=== PATIENT | male | born 1945 | race Caucasian/White ===

== ENCOUNTER 2017-08-03 08:28 | Emergency (ER) | payer MEDICARE, OTHER ==
[~2017-08-03] VITALS: Ht 177.8 cm; Wt 59.0 kg
[~2017-08-03 08:28] MED LIST: (None)20 M1 PO; ACET325 PO; ALBU90OI INH; ALBU90OI6 INH; CLON.5 PO; CLONAZEPAM PO; GENVOYA TABLET1 EACH PO; GUAI600T33 PO; HYDACE10B PO; HYDROCODONE PO; MONT10T PO; NICO14TP TOP; PROC5 PO; Prednisone20 MG PO; RAYATAZ PO; RITO100 PO; Truvada Tablet1 EACH PO; Zithromax250 MG PO
== END 2017-08-03 09:20 | disposition home or self-care (01) ==
LOC: ER 08:28
DX: L27.0 Generalized skin eruption due to drugs and medicaments taken internally (principal); T36.3X5A Adverse effect of macrolides, initial encounter; J44.9 Chronic obstructive pulmonary disease, unspecified; F17.210 Nicotine dependence, cigarettes, uncomplicated; Z88.5 Allergy status to narcotic agent; Z79.52 Long term (current) use of systemic steroids; Z79.2 Long term (current) use of antibiotics; Z79.899 Other long term (current) drug therapy; Z79.891 Long term (current) use of opiate analgesic
CPT/HCPCS: 96374; 99283; J2930

== ENCOUNTER → 2018-02-21 | Outpatient (CLI) | payer MEDICARE ==
[2018-02-21 17:40] LABS: U Amphetamine Screen Not Detected; U Barbituate Screen Not Detected; U Benzodiazapine Screen Not Detected; U Buprenorphine Screen Not Detected; U Cannabinoids Screen Not Detected; U Cocaine Screen Not Detected; U Methadone Screen Not Detected; U Methamphetamine Screen Not Detected; U Opiates Screen DETECTED; U Oxycodone Screen Not Detected; U Phencyclidine Screen Not Detected; U Propoxyphene Screen Not Detected
== END | disposition home or self-care (01) ==
LOC: LAB 16:26 → LAB SHORT 16:26
PROVIDERS: Internal Medicine Hematology & Oncology
DX: Z51.81 Encounter for therapeutic drug level monitoring (principal); Z79.899 Other long term (current) drug therapy
CPT/HCPCS: G0480

== ENCOUNTER 2018-06-28 15:56 | Inpatient (IN) | payer MEDICARE ==
[~2018-06-28] VITALS: Ht 177.8 cm; Wt 54.9 kg
[2018-06-28] MEDS ORDERED: TIOT18 INH (16:19)
[2018-06-28 16:33] LABS: BASOPHILS ABSOLUTE AUTO 0.04 K/mm3 (0.00-0.23); BASOPHILS PERCENT AUTO 0 % (0-2); EOSINOPHILS ABSOLUTE AUTO 0.02 K/mm3 (0.00-0.68); EOSINOPHILS PERCENT AUTO 0 % (0-6); Hematocrit 53.5 % (37.0-53.0); Hemoglobin 17.1 g/dL (13.5-17.5); IMMATURE GRAN ABSOLUTE AUTO 0.06 K/mm3 (0.00-0.10); IMMATURE GRAN PERCENT AUTO 0 % (0-1); LYMPHOCYTES ABSOLUTE AUTO 1.37 K/mm3 (0.84-5.20); LYMPHOCYTES PERCENT AUTO 9 % (21-46); MONOCYTES ABSOLUTE AUTO 1.46 K/mm3 (0.16-1.47); MONOCYTES PERCENT AUTO 9 % (4-13); Mean Corpuscular HGB 32.6 pg (26.0-34.0); Mean Corpuscular Volume 102 fL (80-100); Mean Platelet Volume 9.5 fL (9.1-12.4); NEUTROPHILS ABSOLUTE AUTO 12.75 K/mm3 (1.96-9.15); NEUTROPHILS PERCENT AUTO 81 % (41-73); Platelet Count 176 K/mm3 (150-400); RDW Coefficient Variation 13.7 % (11.7-14.2); RDW Standard Deviation 52.3 fL (35.1-46.3); Red Blood Cell Count 5.25 M/mm3 (4.30-5.90)
[2018-06-28 16:53] LABS: Alanine Aminotransfer (ALT/SGP 18 U/L (12-78); Albumin, Blood 3.2 g/dL (3.4-5.0); Albumin/Globulin Ratio 0.7 (0.8-1.8); Alk Phos 84 U/L (50-136); Anion Gap 5 mmol/L (6-16); Aspartate Aminotrans (AST/SGOT 18 U/L (12-37); Bilirubin, Total 0.4 mg/dL (0.1-1.0); Blood Urea Nitrogen 17 mg/dL (8-24); Bun/Creatinine Ratio 17.3 (12.0-20.0); CO2, Blood 27 mmol/L (21-32); Calcium, Blood 9.3 mg/dL (8.5-10.1); Chloride, Blood 102 mmol/L (98-108); Creatinine, Blood 0.98 mg/dL (0.60-1.20); Globulin, Blood 4.8 g/dL (2.2-4.0); Glomerular Filtration Rate >60 (60-); Glucose, Blood 105 mg/dL (70-99); Potassium, Blood 3.9 mmol/L (3.5-5.5); Sodium, Blood 134 mmol/L (136-145); Troponin I <0.015 ng/mL (0.000-0.040)
--- NOTE | 2018-06-29 03:50 | NUR ---
Shift summary: Pt has slept most of shift. Pt had an anxiety attack earlier in the shift. He was having a hard time getting his air. Respiratory called and pt was given an additional breathing treatment. His O2 was uped to three liters and his O2 sat was 94. He was also given a xanax after getting an order for it.
[2018-06-29 04:56] LABS: BASOPHILS ABSOLUTE AUTO 0.02 K/mm3 (0.00-0.23); BASOPHILS PERCENT AUTO 0 % (0-2); EOSINOPHILS ABSOLUTE AUTO 0.01 K/mm3 (0.00-0.68); EOSINOPHILS PERCENT AUTO 0 % (0-6); Hematocrit 47.3 % (37.0-53.0); Hemoglobin 14.7 g/dL (13.5-17.5); IMMATURE GRAN ABSOLUTE AUTO 0.08 K/mm3 (0.00-0.10); IMMATURE GRAN PERCENT AUTO 1 % (0-1); LYMPHOCYTES ABSOLUTE AUTO 1.22 K/mm3 (0.84-5.20); LYMPHOCYTES PERCENT AUTO 9 % (21-46); MONOCYTES ABSOLUTE AUTO 1.45 K/mm3 (0.16-1.47); MONOCYTES PERCENT AUTO 10 % (4-13); Mean Corpuscular HGB 31.7 pg (26.0-34.0); Mean Corpuscular HGB Conc 31.1 g/dL (31.5-36.5); Mean Corpuscular Volume 102 fL (80-100); Mean Platelet Volume 9.4 fL (9.1-12.4); NEUTROPHILS ABSOLUTE AUTO 11.34 K/mm3 (1.96-9.15); NEUTROPHILS PERCENT AUTO 80 % (41-73); Platelet Count 159 K/mm3 (150-400); RDW Coefficient Variation 13.9 % (11.7-14.2); RDW Standard Deviation 52.6 fL (35.1-46.3); Red Blood Cell Count 4.64 M/mm3 (4.30-5.90); White Blood Cell Count 14.12 K/mm3 (4.00-11.30)
[2018-06-29 05:12] LABS: Anion Gap 4 mmol/L (6-16); Blood Urea Nitrogen 17 mg/dL (8-24); Bun/Creatinine Ratio 20.2 (12.0-20.0); CO2, Blood 28 mmol/L (21-32); Calcium, Blood 8.4 mg/dL (8.5-10.1); Chloride, Blood 107 mmol/L (98-108); Creatinine, Blood 0.84 mg/dL (0.60-1.20); Glomerular Filtration Rate >60 (60-); Glucose, Blood 96 mg/dL (70-99); Potassium, Blood 3.9 mmol/L (3.5-5.5); Sodium, Blood 139 mmol/L (136-145)
--- NOTE | 2018-06-29 10:45 | NUR ---
HE JUST FINISHED WORKING WITH PT. NO BALANCE PROBLEMS. DENIED INCREASED SOB. PULSE DID INCREASE BY 10 BTS/MIN THOUGH. WILL START HIS HOME MED. PHARMACIST IS VERIFYING IT FIRST. WAS HERE AND PUT IN ORDERS FOR PRN ANXIETY. SHITAL WOKE UP THIS MORNING WITH A PANIC ATTACK. TEDS ON BILATERALLY.
--- NOTE | 2018-06-29 18:44 | NUR ---
HE HAS HAD 1 OR 2 VISITORS AT A TIME COME OFF AND ON TODAY. HE EATS 100%. HE AMBULATED WITH PT. HE IS SOB AT REST. HE HAS NOT NEEDED HIS ANTIANXIETY MEDICATION TODAY EVEN THOUGH HIS DAY STARTED OUT WITH A PANIC ATTACK. HE SPENT MOST ALL DAY IN THE BED. HE VOIDS WELL PER URINAL. MAYBE TOMORROW HE WILL FEEL WELL ENOUGH TO GET UP TO THE CHAIR FOR MEALS AND AMBULATE MORE. TEDS ON BILATERALLY.NO FEVERS.
--- NOTE | 2018-06-30 05:54 | NUR ---
SHIFT SUMMARY PATIENT IS ALERT AND ORIENTED. USES CALL LIGHT APPROPRIATELY. REQUESTED ATIVAN BEFORE BED. PATIENT SLEPT WELL THROUGHOUT THE NIGHT. USES URINAL. NO COMPLAINTS OF PAIN OR SOB THROUGHOUT THE NIGHT. VITALS STABLE.
--- NOTE | 2018-06-30 19:26 | NUR ---
SHIFT SUMMARY PT AXO, PLEASANT AND COOPERATIVE WITH CARE. ONE EPISODE OF ANXIETY THIS MORNING, PT MEDICATED PER EMAR. VSS. NEW IV PLACED THIS SHIFT, PATENT AND INFUSING PER EMAR AT THIS TIME. NO OTHER CHANGES. BED IN LOW POSITION, CALL LIGHT WITHIN REACH. PT DENIES PAIN, AND NV, STATES THAT HIS SOB IS IMPROVING.
--- NOTE | 2018-07-01 03:38 | NUR ---
SHIFT SUMMARY PATIENT HAD NO ACUTE CHANGES OBSERVED DURING THE SHIFT. AXOX 3 AND INDEPENDENT. DENIES PAIN, SOB, AND N/V. PIV REMAINS INTACT. IV ABX INFUSED. ON 3L O2 NC. FAMILY PRESENT AT SHIFT CHANGE. WATCHED TV WITH FAMILY. VSS/AFEBRILE. RT IN FOR BREATHING TX. COOPERATIVE WITH CARE. CALL LIGHT IN REACH. BED IN LOWEST POSITION. WILL CONTINUE TO MONITOR UNTIL DAY SHIFT NURSE ASSUMES CARE.
[2018-07-01 11:00] LABS: BASOPHILS ABSOLUTE AUTO 0.01 K/mm3 (0.00-0.23); BASOPHILS PERCENT AUTO 0 % (0-2); EOSINOPHILS ABSOLUTE AUTO 0.06 K/mm3 (0.00-0.68); EOSINOPHILS PERCENT AUTO 1 % (0-6); Hematocrit 48.5 % (37.0-53.0); Hemoglobin 15.1 g/dL (13.5-17.5); IMMATURE GRAN ABSOLUTE AUTO 0.03 K/mm3 (0.00-0.10); IMMATURE GRAN PERCENT AUTO 0 % (0-1); LYMPHOCYTES ABSOLUTE AUTO 1.18 K/mm3 (0.84-5.20); LYMPHOCYTES PERCENT AUTO 13 % (21-46); MONOCYTES ABSOLUTE AUTO 0.95 K/mm3 (0.16-1.47); MONOCYTES PERCENT AUTO 11 % (4-13); Mean Corpuscular HGB Conc 31.1 g/dL (31.5-36.5); Mean Corpuscular Volume 103 fL (80-100); Mean Platelet Volume 9.2 fL (9.1-12.4); NEUTROPHILS ABSOLUTE AUTO 6.69 K/mm3 (1.96-9.15); NEUTROPHILS PERCENT AUTO 75 % (41-73); Platelet Count 178 K/mm3 (150-400); RDW Coefficient Variation 13.8 % (11.7-14.2); Red Blood Cell Count 4.72 M/mm3 (4.30-5.90); White Blood Cell Count 8.92 K/mm3 (4.00-11.30)
[2018-07-01 11:18] LABS: Anion Gap 3 mmol/L (6-16); Blood Urea Nitrogen 18 mg/dL (8-24); Bun/Creatinine Ratio 20.4 (12.0-20.0); CO2, Blood 30 mmol/L (21-32); Calcium, Blood 9.2 mg/dL (8.5-10.1); Chloride, Blood 105 mmol/L (98-108); Creatinine, Blood 0.88 mg/dL (0.60-1.20); Glomerular Filtration Rate >60 (60-); Glucose, Blood 109 mg/dL (70-99); Potassium, Blood 4.2 mmol/L (3.5-5.5); Sodium, Blood 138 mmol/L (136-145)
--- NOTE | 2018-07-01 18:34 | NUR ---
SHIFT SUMMARY SHITAL WAS SLEEPY THIS SHIFT, DENIED PAIN. ON 2L OXYGEN, INDEPENDENT IN ROOM. GOOD APPETITE THIS SHIFT. REQUESTED ANXIETY MEDICATION X1 THIS SHIFT. CALL LIGHT IN REACH. [facility]
--- NOTE | 2018-07-02 03:46 | NUR ---
SHIFT SUMMARY PATIENT HAD NO ACUTE CHANGES OBSERVED DURING THE SHIFT. AXO X4 AND INDEPENDENT IN THE ROOM. TAKES MEDS WHOLE W/WATER. PIV REMAINS INTACT. IV ABXS INFUSED. VSS/FEBRILE. DENIES PAIN, SOB, AND N/V. NO ANXIETY REPORTED. ON 2L O2 NC. FAMILY PRESENT FOR A FEW HOURS. RT BREATHING TX. COOPERATIVE WITH CARE. CALL LIGHT IN REACH. BED IN LOWEST POSITION. WILL CONTINUE TO MONITOR UNTIL DAY SHIFT NURSE ASSUMES CARE.
--- NOTE | 2018-07-02 12:30 | NUR ---
LOWERED O2 TO 1 L PER NC. PT TOLERATING WELL O2 SATS MAINTAINED @94%.
--- NOTE | 2018-07-02 18:11 | NUR ---
SHIFT SUMMARY PATIENT REMAINS AX0. HE IS INDEPENDENT IN HIS ROOM--SPENT MOST OF THE DAY IN BED WATCHING TELEVISION. HE IS A PLEASENT MAN WHO HAS NEEDED VERY LITTLE THROUGHOUT THE DAY. HE IS INTERESTED IN KNOWING WHEN HE MAY GET TO RETURN.
--- NOTE | 2018-07-03 03:16 | NUR ---
SHIFT SUMMARY PATIENT HAD NO ACUTE CHANGES OBSERVED THIS SHIFT. AXOX 4 AND INDEPENDENT IN THE ROOM. DENIES PAIN, SOB, AND N/V. VSS/AFEBRILE. TAKES MEDS WHOLE WITH WATER. PIV REMAINS INTACT. IV ABXS INFUSED. ON 1L O2 NC. FAMILY PRESENT DURING SHIFT. RT IN FOR BREATHING TX. COOPERATIVE WITH CARE. CALL LIGHT IN REACH. BED IN LOWEST POSITION. WILL CONTINUE TO MONITOR UNTIL DAY SHIFT NURSE ASSUMES CARE.
[2018-07-03 10:27] LABS: Creatinine, Blood 0.83 mg/dL (0.60-1.20)
[2018-07-03 10:32] LABS: Vancomycin, Trough 20.8 ug/mL (5.0-10.0)
[2018-07-03] MEDS ORDERED: CLIN300 PO (16:26)
--- NOTE | 2018-07-03 16:53 | NUR ---
DISCHARGE DISCHARGE INSTRUCTIONS, MEDICATION LIST AND FOLLOW UP APPOINTMENT WITH DR BEAL ON 07/05/18, AT 1320 REVIEWED WITH PT. QUESTION/CONCERNS ANSWERED. SCRIP FOR PO THELMAOCIN FAXED TO [facility] PER PT PREFERENCE. PT WAITING FOR HIS RIDE HOME AT THIS TIME.
== END 2018-07-03 17:32 | disposition home or self-care (01) | DRG 177 ==
LOC: ER 15:56 → MEDS 18:49 → ENPENDDIS 07-03 17:21 → MEDS 07-03 17:32
PROVIDERS: Emergency Medicine; Pharmacist Pharmacotherapy; ADMIT Hospitalist
DX: J15.20 Pneumonia due to staphylococcus, unspecified (principal); J96.91 Respiratory failure, unspecified with hypoxia; J44.1 Chronic obstructive pulmonary disease with (acute) exacerbation; Z21 Asymptomatic human immunodeficiency virus [HIV] infection status; F41.9 Anxiety disorder, unspecified
CPT/HCPCS: 36415; 71046; 80048; 80053; 80202; 82565; 84484; 85025; 87070; 87077; 87186; 87205; 93005; 93010; 94640; 94760; 96361; 96365; 96375; 97110; 97161; 99285-25; J0696; J1650; J1885; J1956; J3370; J7030; J7050

== ENCOUNTER 2019-01-20 22:20 | Emergency (ER) | payer MEDICARE ==
[~2019-01-20] VITALS: Ht 177.8 cm; Wt 58.1 kg
[~2019-01-20 22:20] MED LIST changes: +CLIN300 PO; -HYDACE10B PO; +NORCO 10-325 T1 EACH PO; +TIOT18 INH
[2019-01-20 23:36] LABS: BASOPHILS ABSOLUTE AUTO 0.03 K/mm3 (0.00-0.23); BASOPHILS PERCENT AUTO 0 % (0-2); EOSINOPHILS ABSOLUTE AUTO 0.04 K/mm3 (0.00-0.68); EOSINOPHILS PERCENT AUTO 0 % (0-6); Hematocrit 50.7 % (37.0-53.0); Hemoglobin 15.2 g/dL (13.5-17.5); IMMATURE GRAN ABSOLUTE AUTO 0.02 K/mm3 (0.00-0.10); IMMATURE GRAN PERCENT AUTO 0 % (0-1); LYMPHOCYTES ABSOLUTE AUTO 1.26 K/mm3 (0.84-5.20); LYMPHOCYTES PERCENT AUTO 13 % (21-46); MONOCYTES ABSOLUTE AUTO 1.01 K/mm3 (0.16-1.47); MONOCYTES PERCENT AUTO 10 % (4-13); Mean Corpuscular HGB 32.5 pg (26.0-34.0); Mean Corpuscular Volume 108 fL (80-100); NEUTROPHILS PERCENT AUTO 77 % (41-73); Platelet Count 225 K/mm3 (150-400); RDW Coefficient Variation 14.1 % (11.7-14.2); RDW Standard Deviation 57.5 fL (35.1-46.3); Red Blood Cell Count 4.68 M/mm3 (4.30-5.90); White Blood Cell Count 10.06 K/mm3 (4.00-11.30)
[2019-01-21 00:25] LABS: Alanine Aminotransfer (ALT/SGP 19 U/L (12-78); Albumin, Blood 2.8 g/dL (3.4-5.0); Albumin/Globulin Ratio 0.6 (0.8-1.8); Alk Phos 92 U/L (50-136); Anion Gap 2 mmol/L (6-16); Aspartate Aminotrans (AST/SGOT 7 U/L (12-37); Bilirubin, Total 0.2 mg/dL (0.1-1.0); Blood Urea Nitrogen 17 mg/dL (8-24); Bun/Creatinine Ratio 16.8 (12.0-20.0); CO2, Blood 38 mmol/L (21-32); Calcium, Blood 9.7 mg/dL (8.5-10.1); Chloride, Blood 101 mmol/L (98-108); Creatinine, Blood 1.01 mg/dL (0.60-1.20); Globulin, Blood 4.9 g/dL (2.2-4.0); Glomerular Filtration Rate >60 (60-); Glucose, Blood 136 mg/dL (70-99); Potassium, Blood 4.1 mmol/L (3.5-5.5); Sodium, Blood 141 mmol/L (136-145); Total Protein, Blood 7.7 g/dL (6.4-8.2); Troponin I <0.015 ng/mL (0.000-0.040)
[2019-01-21] MEDS ORDERED: Vibramycin100 MG PO (01:04)
== END 2019-01-21 01:27 | disposition home or self-care (01) ==
LOC: ER 22:20
PROVIDERS: Emergency Medicine
DX: J44.1 Chronic obstructive pulmonary disease with (acute) exacerbation (principal); F17.200 Nicotine dependence, unspecified, uncomplicated; Z88.5 Allergy status to narcotic agent; Z88.1 Allergy status to other antibiotic agents
CPT/HCPCS: 36415; 71046; 80053; 83880; 84484; 85025; 93005; 93010; 94640; 99284-25; J1100

== ENCOUNTER 2019-03-08 08:33 | Inpatient (IN) | payer MEDICARE ==
[~2019-03-08] VITALS: Ht 177.8 cm; Wt 45.1 kg
[~2019-03-08 08:33] MED LIST changes: +Vibramycin100 MG PO
[2019-03-08 09:14] LABS: BASOPHILS ABSOLUTE AUTO 0.03 K/mm3 (0.00-0.23); BASOPHILS PERCENT AUTO 0 % (0-2); EOSINOPHILS ABSOLUTE AUTO 0.01 K/mm3 (0.00-0.68); EOSINOPHILS PERCENT AUTO 0 % (0-6); Hemoglobin 17.3 g/dL (13.5-17.5); IMMATURE GRAN ABSOLUTE AUTO 0.03 K/mm3 (0.00-0.10); IMMATURE GRAN PERCENT AUTO 0 % (0-1); LYMPHOCYTES ABSOLUTE AUTO 1.07 K/mm3 (0.84-5.20); LYMPHOCYTES PERCENT AUTO 10 % (21-46); MONOCYTES ABSOLUTE AUTO 1.17 K/mm3 (0.16-1.47); MONOCYTES PERCENT AUTO 11 % (4-13); Mean Corpuscular HGB 31.9 pg (26.0-34.0); Mean Corpuscular Volume 106 fL (80-100); Mean Platelet Volume 10.3 fL (9.1-12.4); NEUTROPHILS ABSOLUTE AUTO 8.39 K/mm3 (1.96-9.15); NEUTROPHILS PERCENT AUTO 78 % (41-73); Platelet Count 230 K/mm3 (150-400); RDW Coefficient Variation 14.9 % (11.7-14.2); RDW Standard Deviation 59.3 fL (35.1-46.3); Red Blood Cell Count 5.42 M/mm3 (4.30-5.90)
[2019-03-08 09:17] LABS: Hematocrit 57.6 % (37.0-53.0)
[2019-03-08 09:37] LABS: Alanine Aminotransfer (ALT/SGP 41 U/L (12-78); Albumin/Globulin Ratio 0.6 (0.8-1.8); Alk Phos 93 U/L (50-136); Anion Gap 3 mmol/L (6-16); Aspartate Aminotrans (AST/SGOT 36 U/L (12-37); Bilirubin, Total 0.7 mg/dL (0.1-1.0); Blood Urea Nitrogen 32 mg/dL (8-24); CO2, Blood 33 mmol/L (21-32); Calcium, Blood 9.1 mg/dL (8.5-10.1); Chloride, Blood 107 mmol/L (98-108); Globulin, Blood 4.8 g/dL (2.2-4.0); Glomerular Filtration Rate >60 (60-); Glucose, Blood 122 mg/dL (70-99); Potassium, Blood 4.7 mmol/L (3.5-5.5); Sodium, Blood 143 mmol/L (136-145); Total Protein, Blood 7.8 g/dL (6.4-8.2)
[2019-03-08 09:39] LABS: Influenza A Negative (NEGATIVE); Influenza B Negative (NEGATIVE)
[2019-03-08 10:31] LABS: International Normalized Ratio 1.08; Prothrombin Time Results 11.5 Sec (9.7-11.5)
[2019-03-08 11:29] LABS: PCO2 Arterial 71.6 mmHg (35-45); PO2 Arterial 70.3 mmHg (80-100)
[2019-03-08] MEDS ORDERED: PROC5 PO (12:53)
--- NOTE | 2019-03-08 13:43 | NUR ---
ASSUMED PATIENT CARE.
[2019-03-08 15:30] LABS: U Amphetamine Screen Not Detected; U Barbituate Screen Not Detected; U Benzodiazapine Screen Not Detected; U Buprenorphine Screen Not Detected; U Cannabinoids Screen Not Detected; U Cocaine Screen Not Detected; U Methadone Screen Not Detected; U Methamphetamine Screen Not Detected; U Opiates Screen DETECTED; U Oxycodone Screen Not Detected; U Phencyclidine Screen Not Detected; U Propoxyphene Screen Not Detected
--- NOTE | 2019-03-08 17:44 | NUR ---
PT CURRENTLY ON 4L O2 SATTING MID 90S. TOLERATING WELL. CALL TO DR DIAS TO UPDATE HIM ABOUT PT'S STATUS AND LET HIM KNOW PT IS CURRENTLY TOLERATING NC BUT HAS NOT HAD REPEAT ABG DONE. STATES REPEAT NOT NEEDED UNLESS STATUS WORSENS. PT EATING DINNER AT THIS TIME. ORIENTEE AT BEDSIDE.
[2019-03-08 19:20] LABS: Adenovirus Not Detected (NOT DETECT); Bordetella pertussis Not Detected (NOT DETECT); Chlamydophila pneumoniae Not Detected (NOT DETECT); Coronavirus 229E Not Detected (NOT DETECT); Coronavirus HKU1 Not Detected (NOT DETECT); Coronavirus NL63 Not Detected (NOT DETECT); Coronavirus OC43 Not Detected (NOT DETECT); Human Metapneumovirus Not Detected (NOT DETECT); Human Rhinovirus/Enterovirus Not Detected (NOT DETECT); Influenza A Not Detected (NOT DETECT); Influenza A/2009-H1 Not Detected (NOT DETECT); Influenza A/H1 Not Detected (NOT DETECT); Influenza A/H3 Not Detected (NOT DETECT); Influenza B Not Detected (NOT DETECT); Mycoplasma pneumoniae Not Detected (NOT DETECT); Parainfluenza Virus 1 Not Detected (NOT DETECT); Parainfluenza Virus 2 Not Detected (NOT DETECT); Parainfluenza Virus 3 Not Detected (NOT DETECT); Parainfluenza Virus 4 Not Detected (NOT DETECT); Respiratory Syncytial Virus Not Detected (NOT DETECT)
--- NOTE | 2019-03-08 19:23 | NUR ---
PATIENT ARRIVED VIA ED WITH COPD EXACERBATION AND HYPERCAPNIA. ADMITTED TO PCU WITH BIPAP, TRANSITIONED TO 4L O2 NASAL CANULA AROUND 1700. PATIENT TOLERATED NC WELL AND MAINTAINED O2 95-96% OVER REMAINDER OF SHIFT. HX OF HIV, ADDITIONAL LABS ORDERED AND DRAWN, MONITOR RESULTS FOR POTENTIAL FOLLOW UP WITH PROVIDER.
--- NOTE | 2019-03-08 19:27 | NUR ---
RELINQUISHED PATIENT CARE.
[2019-03-09 04:35] LABS: BASOPHILS ABSOLUTE AUTO 0.01 K/mm3 (0.00-0.23); BASOPHILS PERCENT AUTO 0 % (0-2); EOSINOPHILS PERCENT AUTO 0 % (0-6); Hematocrit 52.7 % (37.0-53.0); Hemoglobin 15.7 g/dL (13.5-17.5); IMMATURE GRAN ABSOLUTE AUTO 0.03 K/mm3 (0.00-0.10); IMMATURE GRAN PERCENT AUTO 0 % (0-1); LYMPHOCYTES ABSOLUTE AUTO 0.58 K/mm3 (0.84-5.20); LYMPHOCYTES PERCENT AUTO 7 % (21-46); MONOCYTES ABSOLUTE AUTO 0.46 K/mm3 (0.16-1.47); MONOCYTES PERCENT AUTO 5 % (4-13); Mean Corpuscular HGB 32.4 pg (26.0-34.0); Mean Corpuscular HGB Conc 29.8 g/dL (31.5-36.5); Mean Platelet Volume 9.7 fL (9.1-12.4); NEUTROPHILS ABSOLUTE AUTO 7.57 K/mm3 (1.96-9.15); NEUTROPHILS PERCENT AUTO 88 % (41-73); Platelet Count 209 K/mm3 (150-400); RDW Coefficient Variation 14.6 % (11.7-14.2); RDW Standard Deviation 59.2 fL (35.1-46.3); Red Blood Cell Count 4.84 M/mm3 (4.30-5.90); White Blood Cell Count 8.65 K/mm3 (4.00-11.30)
[2019-03-09 04:36] LABS: Mean Corpuscular Volume 109 fL (80-100)
[2019-03-09 04:58] LABS: Alanine Aminotransfer (ALT/SGP 32 U/L (12-78); Albumin, Blood 2.7 g/dL (3.4-5.0); Albumin/Globulin Ratio 0.6 (0.8-1.8); Alk Phos 80 U/L (50-136); Anion Gap 2 mmol/L (6-16); Aspartate Aminotrans (AST/SGOT 13 U/L (12-37); Bilirubin, Total 0.4 mg/dL (0.1-1.0); Blood Urea Nitrogen 29 mg/dL (8-24); Bun/Creatinine Ratio 31.8 (12.0-20.0); CO2, Blood 31 mmol/L (21-32); Chloride, Blood 109 mmol/L (98-108); Creatinine, Blood 0.91 mg/dL (0.60-1.20); Globulin, Blood 4.3 g/dL (2.2-4.0); Glomerular Filtration Rate >60 (60-); Glucose, Blood 117 mg/dL (70-99); Magnesium, Blood 2.4 mg/dL (1.6-2.4); Potassium, Blood 4.4 mmol/L (3.5-5.5); Sodium, Blood 142 mmol/L (136-145)
--- NOTE | 2019-03-09 18:23 | NUR ---
SHIFT SUMMARY THIS A&O PT WAS PLACED ON BIPAP AT THE END OF DRUG SAFETY ASSISTANT FOR INCREASED O2 NEEDS. THROUGHOUT THE DAY PT HAS BEEN TACHYPENIC WITH RATES 40'S. RT HAS BEEN ABLE TO SLOWLY DECREASE FIO2 FROM 65% DOWN TO 40% THIS EVENING. THIS MORNING ATTEMPTED TO PROVIDE PT PO MEDS, WHEN PT TOOK A SIP OF WATER HE STARTED COUGHING/SPITTING UP THE WATER. NOTIFIED DR DIAS AND ORDERS RECEIVED TO MAKE NPO AND SPEECH EVAL. TELEMETRY HAS SHOWN PT IN SINUS RHYTHM, VITALS HAVE BEEN STABLE. ORAL CARE PROVIDED THROUGH OUT DAY AND REPOSITIONED MASK MULTIPLE TIMES.
[2019-03-10 03:59] LABS: BASOPHILS ABSOLUTE AUTO 0.01 K/mm3 (0.00-0.23); BASOPHILS PERCENT AUTO 0 % (0-2); EOSINOPHILS PERCENT AUTO 0 % (0-6); Hematocrit 51.3 % (37.0-53.0); Hemoglobin 15.2 g/dL (13.5-17.5); IMMATURE GRAN ABSOLUTE AUTO 0.06 K/mm3 (0.00-0.10); IMMATURE GRAN PERCENT AUTO 1 % (0-1); LYMPHOCYTES ABSOLUTE AUTO 0.63 K/mm3 (0.84-5.20); LYMPHOCYTES PERCENT AUTO 5 % (21-46); MONOCYTES PERCENT AUTO 5 % (4-13); Mean Corpuscular HGB 32.3 pg (26.0-34.0); Mean Corpuscular HGB Conc 29.6 g/dL (31.5-36.5); Mean Corpuscular Volume 109 fL (80-100); Mean Platelet Volume 9.7 fL (9.1-12.4); NEUTROPHILS ABSOLUTE AUTO 11.72 K/mm3 (1.96-9.15); NEUTROPHILS PERCENT AUTO 90 % (41-73); Platelet Count 184 K/mm3 (150-400); RDW Coefficient Variation 14.5 % (11.7-14.2); RDW Standard Deviation 59.4 fL (35.1-46.3); White Blood Cell Count 13.02 K/mm3 (4.00-11.30)
[2019-03-10 04:19] LABS: Anion Gap 3 mmol/L (6-16); Blood Urea Nitrogen 34 mg/dL (8-24); Bun/Creatinine Ratio 35.9 (12.0-20.0); CO2, Blood 29 mmol/L (21-32); Calcium, Blood 8.6 mg/dL (8.5-10.1); Chloride, Blood 111 mmol/L (98-108); Creatinine, Blood 0.95 mg/dL (0.60-1.20); Glomerular Filtration Rate >60 (60-); Glucose, Blood 112 mg/dL (70-99); Potassium, Blood 4.4 mmol/L (3.5-5.5); Sodium, Blood 143 mmol/L (136-145)
--- NOTE | 2019-03-10 05:45 | NUR ---
SHIFT SUMMARY PT A&O; APPEARS WEAK; COMPLIANT W/ CARE; RT TITRATED BIPAP TO 35%; O2 SATS >93 ON BIPAP; REPOSITIONED MASK SEVERAL TIMES; VSS; DENIES CHEST PAIN; PT NPO; SWALLOW EVAL ORDERED FOR TODAY; PT STATES HE IS ANXIOUS TO GET OFF BIPAP; CALL LIGHT IN REACH; BED IN LOWEST POSITION; WILL CONTINUE TO MONITOR UNTIL HAND OFF TO DAY SHIFT RN.
[2019-03-10 15:06] LABS: % CD 4 POS. LYMPH. 19.9 % (30.8-58.5); ABSOLUTE CD 4 HELPER 60 /uL (359-1519); BASOS 0 % (Not Estab.); EOS 0 % (Not Estab.); HEMATOCRIT 51.8 % (37.5-51.0); HEMOGLOBIN 16.4 g/dL (13.0-17.7); IMMATURE GRANULOCYTES 0 % (Not Estab.); LYMPHS 4 % (Not Estab.); LYMPHS (ABSOLUTE) 0.3 x10E3/uL (0.7-3.1); MCH 31.6 pg (26.6-33.0); MCHC 31.7 g/dL (31.5-35.7); MCV 100 fL (79-97); MONOCYTES 1 % (Not Estab.); MONOCYTES(ABSOLUTE) 0.1 x10E3/uL (0.1-0.9); NEUTROPHILS 95 % (Not Estab.); NEUTROPHILS (ABSOLUTE) 6.6 x10E3/uL (1.4-7.0); PLATELETS 208 x10E3/uL (150-450); RBC 5.19 x10E6/uL (4.14-5.80); RDW 13.4 % (11.6-15.4)
[2019-03-10 16:06] LABS: HIV-1 RNA BY PCR <20 (.)
--- NOTE | 2019-03-10 19:35 | NUR ---
PT SUMMARY PT REMAINS A&O X4, VSS. PT HAS BEEN ON 4 L O2 VIA NC SINCE 644 THIS AM AND HAS TOLERATED THIS WITH NO PROBLEMS, CONTINUES TO DENY SOB. ENC TO USE FLUTTER VALVE. SBA TO THE BEDSIDE FOR URINAL USE. SPEECH EVAL WAS COMPLETED, PT IS TOLERATING HONEY CONSISTENCY & MECH SOFT DIET. CALL LIGHT IN REACH, PT CALLS FOR ASSISTANCE PRN.
[2019-03-11 04:15] LABS: BASOPHILS PERCENT AUTO 0 % (0-2); EOSINOPHILS PERCENT AUTO 0 % (0-6); Hematocrit 50.7 % (37.0-53.0); Hemoglobin 14.8 g/dL (13.5-17.5); IMMATURE GRAN ABSOLUTE AUTO 0.05 K/mm3 (0.00-0.10); IMMATURE GRAN PERCENT AUTO 1 % (0-1); LYMPHOCYTES ABSOLUTE AUTO 0.29 K/mm3 (0.84-5.20); LYMPHOCYTES PERCENT AUTO 3 % (21-46); MONOCYTES ABSOLUTE AUTO 0.28 K/mm3 (0.16-1.47); MONOCYTES PERCENT AUTO 3 % (4-13); Mean Corpuscular HGB 32.2 pg (26.0-34.0); Mean Corpuscular HGB Conc 29.2 g/dL (31.5-36.5); Mean Corpuscular Volume 110 fL (80-100); Mean Platelet Volume 9.5 fL (9.1-12.4); NEUTROPHILS ABSOLUTE AUTO 8.26 K/mm3 (1.96-9.15); NEUTROPHILS PERCENT AUTO 93 % (41-73); Platelet Count 156 K/mm3 (150-400); RDW Coefficient Variation 14.4 % (11.7-14.2); RDW Standard Deviation 59.8 fL (35.1-46.3); White Blood Cell Count 8.88 K/mm3 (4.00-11.30)
[2019-03-11 04:33] LABS: Anion Gap 1 mmol/L (6-16); Blood Urea Nitrogen 26 mg/dL (8-24); Bun/Creatinine Ratio 34.4 (12.0-20.0); CO2, Blood 33 mmol/L (21-32); Calcium, Blood 8.2 mg/dL (8.5-10.1); Chloride, Blood 110 mmol/L (98-108); Creatinine, Blood 0.76 mg/dL (0.60-1.20); Glomerular Filtration Rate >60 (60-); Glucose, Blood 135 mg/dL (70-99); Potassium, Blood 4.4 mmol/L (3.5-5.5); Sodium, Blood 144 mmol/L (136-145)
--- NOTE | 2019-03-11 07:22 | NUR ---
SHIFT SUMMARY PT A&O; COMPLIANT W/ CARE; CALLS APPROPRIATELY; USES URINAL AT BEDSIDE; TOLERATING HONEY THICK W/ SPOON; O2 SATS >92 ON 3-4L NC; SLEPT MUCH OF THE NIGHT IN BETWEEN INTERVENTIONS; DENIES CHEST PAIN; DENIES NEEDS AT THIS TIME; CALL LIGHT IN REACH; BED IN LOWEST POSITION; REPORT GIVEN TO DAY SHIFT RN.
--- NOTE | 2019-03-11 09:10 | NUR ---
BEGINNING OF SHIFT Assumed care of pt at 0700. Bedside report received from Tori CHANDRA. Pt A&O x 4. Initially on 3 LPM NC. Pt states home O2 use is 2 LPM NC. Pt titrated to 2 LPM NC, SpO2 90% or greater. Pt assisted to chair for breakfast. Tolerated mechanical soft diet with honey thick liquids well. Tolerated AM meds whole with applesauce well. Flutter valve in reach. Pt educated on use.
--- NOTE | 2019-03-11 17:26 | NUR ---
SUMMARY At rest, pt is on 2 LPM NC, which is his baseline. With meals and activity, pt requires 4 LPM NC. Pt has been OOB this shift to chair for breakfast but has declined to sit up in chair for lunch or dinner. Pt has not had a BM this shift. Pt voids urine into urinal. No events per heart monitor. Will continue to closely monitor until care handoff and bedside report with oncoming RN.
--- NOTE | 2019-03-11 19:30 | NUR ---
ASSUMED CARE APPROXIMATELY 1900; PT A&O; FATIGUED; STATES HE HAD A GOOD DAY; PT ON 4L NC; O2 SATS >93; COARSE LUNG SOUNDS; DENIES CHEST PAIN; NSR HR IN 80'S PER DINKEY OPERATOR SLAG; DENIES NEEDS; WARM BLANKET AND PO FLUIDS OFFERED; PT REFUSED; CALL LIGHT IN REACH; BED IN LOWEST POSITION.
[2019-03-12 04:51] LABS: BASOPHILS ABSOLUTE AUTO 0.04 K/mm3 (0.00-0.23); BASOPHILS PERCENT AUTO 0 % (0-2); EOSINOPHILS PERCENT AUTO 0 % (0-6); Hematocrit 51.2 % (37.0-53.0); Hemoglobin 15.2 g/dL (13.5-17.5); IMMATURE GRAN ABSOLUTE AUTO 0.08 K/mm3 (0.00-0.10); IMMATURE GRAN PERCENT AUTO 1 % (0-1); LYMPHOCYTES ABSOLUTE AUTO 0.24 K/mm3 (0.84-5.20); LYMPHOCYTES PERCENT AUTO 1 % (21-46); MONOCYTES ABSOLUTE AUTO 0.88 K/mm3 (0.16-1.47); MONOCYTES PERCENT AUTO 5 % (4-13); Mean Corpuscular HGB 32.5 pg (26.0-34.0); Mean Corpuscular HGB Conc 29.7 g/dL (31.5-36.5); Mean Corpuscular Volume 110 fL (80-100); Mean Platelet Volume 9.6 fL (9.1-12.4); NEUTROPHILS ABSOLUTE AUTO 15.66 K/mm3 (1.96-9.15); NEUTROPHILS PERCENT AUTO 93 % (41-73); Platelet Count 143 K/mm3 (150-400); RDW Coefficient Variation 14.6 % (11.7-14.2); RDW Standard Deviation 60.4 fL (35.1-46.3); Red Blood Cell Count 4.67 M/mm3 (4.30-5.90)
[2019-03-12 05:48] LABS: Anion Gap 2 mmol/L (6-16); Blood Urea Nitrogen 20 mg/dL (8-24); Bun/Creatinine Ratio 33.4 (12.0-20.0); CO2, Blood 30 mmol/L (21-32); Calcium, Blood 8.5 mg/dL (8.5-10.1); Chloride, Blood 110 mmol/L (98-108); Glomerular Filtration Rate >60 (60-); Glucose, Blood 140 mg/dL (70-99); Potassium, Blood 4.7 mmol/L (3.5-5.5); Sodium, Blood 142 mmol/L (136-145)
--- NOTE | 2019-03-12 09:19 | NUR ---
SPEECH THERAPY Ericka, speech therapist, in to see pt. Recommends that pt is to be NPO until she can discuss her assessement with pt's hospitalist, Dr Odonnell.
--- NOTE | 2019-03-12 10:45 | NUR ---
PAL CARE INITIAL CLINICAL VISIT- PT'S STATED MPOA, IS SISTER, KATHIA PRESSLEY, PHONE # [phone]. Referral for pal care received for AD/POLST completion and advanced care planning. Case conferenced with ST re: pt's aspiration earlier and further studies and planning around that pending ST consult with Dr sinclair: findings. Pt sitting up in bed. He is welcoming with a very faint, whisper of a voice. He is cachectic and appears profoundly fatigued and frail. He denies pain, MALAVE nausea, anxiety or distress of any kind. He is dyspnic with conversation. He reports when asked that his sister, Kathia would be his surrogate medical decision maker and that he has completed an advanced directive previously, documenting this. Asked if he had a copy to bring in so we can scan in to his medical record. Pt seemed too fatigued to continue our conversation today. Plan to discuss his wishes for rescusitative efforts further another day.
--- NOTE | 2019-03-12 14:00 | NUR ---
BEGINNING OF SHIFT - TRANSFER TO MEDICAL FLOOR Assumed care of pt at 0700. Bedside report recieved from Tori CHANDRA. Pt on 4 LPM NC. Pt ate breakfast this AM. Speech therapy in to see pt afterwards. Speech therapy states concern that pt is aspirating with current ordered precautions and states that pt should remain NPO until she can discuss plan of care with Dr Odonnell. Therefore, AM PO medications not given. Pt educated on reason and verbalizes understanding. Plan by Dr Odonnell and speech therapist to perform barium swallow at noon. Barium swallow completed. Pt to remain strict NPO. No medications or water permitted. Plan to have PEG tube placed. This RN discussed pt's chronic pain and PO steroids with Dr Odonnell. Steroids changed to IV. Pain meds changed to IV. This RN asked provider if he would like orders for PO meds discontinued. Provider states to hold ordered PO medications until further notice. This RN educated pt on strict NPO and plan for PEG tube. This RN also educated pt on importance of frequent oral care. Pt verbalizes understanding. Pt medical floor status. Transferred to medical floor via wheelchair, accompanied by Yazmin MATA.
--- NOTE | 2019-03-12 15:30 | NUR ---
Received verbal permission from patient to provide care for him on 03/13/19.
--- NOTE | 2019-03-12 17:28 | NUR ---
PT ARRIVED TO ROOM AT 1430. PT AOX4 AND COOPERATIVE OF CARE. PT HAS BEEN RESTING IN BED SLEEPING ALL AFTERNOON. PT DID HAVE LOW O2 RUNNING 87%-88%. RT NOTIFIED AND ADDED SOME HUMIDITY TO AIR. WILL CONTINUE TO MONITOR. NO DISTRESS NOTED.
--- NOTE | 2019-03-13 00:22 | NUR ---
NPO FOR EVAL IN AM FOR POSSIBLE PEG TUBE PLACEMENT HE IS NPO AND HAS SEVERE DIFFICULTY SWALLOWING. ORAL CARE DONE. HAS ORAL SPONGES FOR MOISTENING MOUTH. MD ORDERED CLINIMIX FOR NUTRITION - CURRENTLY RUNNING AT 74 ML HR. CALL LIGHT IN REACH. NO COMPLAINTS VOICED.
--- NOTE | 2019-03-13 03:48 | NUR ---
Received Dilaudid 1 mg IV earlier for bilateral hip pain. Currently resting quietly. Call light in reach. IV Cinimix infusing at 75 ml/hr.
[2019-03-13 05:46] LABS: BASOPHILS ABSOLUTE AUTO 0.01 K/mm3 (0.00-0.23); BASOPHILS PERCENT AUTO 0 % (0-2); EOSINOPHILS PERCENT AUTO 0 % (0-6); Hematocrit 51.2 % (37.0-53.0); IMMATURE GRAN ABSOLUTE AUTO 0.04 K/mm3 (0.00-0.10); IMMATURE GRAN PERCENT AUTO 0 % (0-1); LYMPHOCYTES ABSOLUTE AUTO 0.29 K/mm3 (0.84-5.20); LYMPHOCYTES PERCENT AUTO 2 % (21-46); MONOCYTES ABSOLUTE AUTO 0.38 K/mm3 (0.16-1.47); MONOCYTES PERCENT AUTO 3 % (4-13); Mean Corpuscular HGB 31.8 pg (26.0-34.0); Mean Corpuscular HGB Conc 29.3 g/dL (31.5-36.5); Mean Corpuscular Volume 109 fL (80-100); Mean Platelet Volume 9.7 fL (9.1-12.4); NEUTROPHILS PERCENT AUTO 94 % (41-73); Platelet Count 123 K/mm3 (150-400); RDW Coefficient Variation 14.4 % (11.7-14.2); RDW Standard Deviation 58.4 fL (35.1-46.3); Red Blood Cell Count 4.72 M/mm3 (4.30-5.90); White Blood Cell Count 12.72 K/mm3 (4.00-11.30)
[2019-03-13 06:08] LABS: Anion Gap 1 mmol/L (6-16); Blood Urea Nitrogen 26 mg/dL (8-24); Bun/Creatinine Ratio 39.8 (12.0-20.0); CO2, Blood 34 mmol/L (21-32); Calcium, Blood 8.3 mg/dL (8.5-10.1); Chloride, Blood 106 mmol/L (98-108); Creatinine, Blood 0.65 mg/dL (0.60-1.20); Glomerular Filtration Rate >60 (60-); Glucose, Blood 153 mg/dL (70-99); Potassium, Blood 4.9 mmol/L (3.5-5.5); Sodium, Blood 141 mmol/L (136-145)
[2019-03-13 14:06] LABS: T-TRANSGLUTAMINASE (TTG) IGA <2 U/mL (0-3); T-TRANSGLUTAMINASE (TTG) IGG 4 U/mL (0-5)
--- NOTE | 2019-03-13 16:17 | NUR ---
SUMMARY PT IS VERY WEAK/FATIGUED, THIN/FRAIL w DRY SKIN. HE IS A/O X3. 2 ASSIST TO STAND HOWEVER STATE TOO WEAK TO BR WT. HE IS STRICT NPO, SPEECH THERAPY STATE NO ORAL MEDS, SX SET UP FOR ORAL CARE. DR GODINEZ OFFICE CONTACTED @ REQUEST OF DR OLMSTEAD TO CONFIRM GI CONSULT FOR PEG TUBE PLACEMENT, THEY CONFIRM CONSULT & STATE DR GODINEZ WILL BE IN THIS AFTERNOON @ 1630 FOR MTG w PT/FAMILY TO DISCUSS PEG TUBE. CLINIMIX CONTINUES @ THIS TIME @ 75 ML/HR. PT CONTINUES SHORT OF BREATH, O2 @ 7L HUMIDIFIED, BIOX 90-94%, RT PROVIDING NEB TX'S. SKIN IS DRY, FRAGILE. LOTION APPLIED. COCCYX REDNESS NOTED, BARRIER OIT APPLIED. VSS.
--- NOTE | 2019-03-13 17:05 | NUR ---
DR GODINEZ HERE FOR MTG w PT & SISTER, DISCUSS PEG TUBE PLACEMENT. STATE TENTATIVE PLAN FOR PEG PLACEMENT TOMORROW AFTERNOON.
--- NOTE | 2019-03-14 03:20 | NUR ---
PT RESTING QUIETLY WITH FEW INTERRUPTIONS THIS SHIFT. CLINIMIX INFUSING AT 75 ML/HR PER MD ORDERS FOR NUTRITION AND HYDRATION PT IS STRICTLY NPO. RECEIVED DILAUDID X 1 EARLIER FOR BILATERAL HIP PAIN, MED EFFECTIVE. CALL LIGHT IN REACH.
[2019-03-14 05:48] LABS: BASOPHILS ABSOLUTE AUTO 0.01 K/mm3 (0.00-0.23); BASOPHILS PERCENT AUTO 0 % (0-2); EOSINOPHILS PERCENT AUTO 0 % (0-6); Hematocrit 50.3 % (37.0-53.0); Hemoglobin 14.8 g/dL (13.5-17.5); IMMATURE GRAN ABSOLUTE AUTO 0.05 K/mm3 (0.00-0.10); IMMATURE GRAN PERCENT AUTO 0 % (0-1); LYMPHOCYTES ABSOLUTE AUTO 0.57 K/mm3 (0.84-5.20); LYMPHOCYTES PERCENT AUTO 4 % (21-46); MONOCYTES ABSOLUTE AUTO 0.57 K/mm3 (0.16-1.47); MONOCYTES PERCENT AUTO 4 % (4-13); Mean Corpuscular HGB 31.6 pg (26.0-34.0); Mean Corpuscular HGB Conc 29.4 g/dL (31.5-36.5); Mean Corpuscular Volume 107 fL (80-100); Mean Platelet Volume 9.9 fL (9.1-12.4); NEUTROPHILS ABSOLUTE AUTO 11.79 K/mm3 (1.96-9.15); NEUTROPHILS PERCENT AUTO 91 % (41-73); Platelet Count 116 K/mm3 (150-400); RDW Coefficient Variation 14.1 % (11.7-14.2); RDW Standard Deviation 56.5 fL (35.1-46.3); Red Blood Cell Count 4.69 M/mm3 (4.30-5.90); White Blood Cell Count 12.99 K/mm3 (4.00-11.30)
[2019-03-14 06:03] LABS: Anion Gap 1 mmol/L (6-16); Blood Urea Nitrogen 27 mg/dL (8-24); Bun/Creatinine Ratio 46.6 (12.0-20.0); CO2, Blood 34 mmol/L (21-32); Calcium, Blood 8.4 mg/dL (8.5-10.1); Chloride, Blood 105 mmol/L (98-108); Creatinine, Blood 0.58 mg/dL (0.60-1.20); Glomerular Filtration Rate >60 (60-); Glucose, Blood 123 mg/dL (70-99); Potassium, Blood 4.6 mmol/L (3.5-5.5); Sodium, Blood 140 mmol/L (136-145)
--- NOTE | 2019-03-14 12:46 | NUR ---
PT TAKEN FOR SURGERY PT TAKEN BY CORAZON KAUFFMAN FOR PEG TUBE PLACEMENT.
--- NOTE | 2019-03-14 12:52 | NUR ---
PT TRANSPORTED TO [facility]. AGREE WITH PLANNED PROCEDURE.
--- NOTE | 2019-03-14 13:42 | NUR ---
03/14/19 1342 Shantal Jennings History, Chart, Medications and Allergies reviewed before start of procedure. PATIENT CONFIRMS NPO STATUS AND AGREES WITH SCHEDULED PROCEDURE. O2 VIA N/C INTACT THROUGHOUT SEDATION/PROCEDURE. 3-LEAD EKG REVIEWED WITH PHYSICIAN PRIOR TO START OF PROCEDURE. Bite Block Placed. MAC PROVIDED BY DR. TINSLEY.
--- NOTE | 2019-03-14 16:36 | NUR ---
SHIFT SUMMARY PT HAD PEG TUBE PLACED THIS SHIFT. PEG TUBE INTACT. NO SIGNS OF BLEEDING OR HEMATOMA. PT RETURNED TO ROOM AT 1500. PT SLIGHTLY DISORIENTED UPON RETURN TO ROOM. PT IMPROVED NOW. PT STATES HIS ABD HURTS. PT EDUCATED ON PROCEDURE AND MEDICATED FOR PAIN/NAUSEA. PT NOW SLEEPING. WOUND CARE COMPLETED TO SACRUM & HIPS. EGG CRATE FOAM PLACED ON BED TO ASSIST WITH PRESSURE. CLINMIX RUNNING 75ML/HR. NO OTHER CHANGES IN ASSESSEMENT AT THIS TIME. WILL CONTINUE TO MONITOR UNTIL TURNOVER IS COMPLETE.
--- NOTE | 2019-03-14 17:55 | NUR ---
PT DISORIENTED PT INCREASED IN DISORIENTATION AFTER WAKING FROM NAP. PT UNABLE TO ANSWER QUESTIONS AND FIGITING WITH HANDS. DR. HAYES NOTIFIED. WILL CONTINUE TO MONITOR.
--- NOTE | 2019-03-14 19:59 | NUR ---
03/14/19 0750 BED ALARM SOUNDING. PT TRYING TO GET UP "TO PEE." RN ASSISTED TO STAND AND VOIDED 320ML CLEAR YELLOW URINE. ASSISTED BACK TO BED AND RN NOTED SOME CLEAR, PINK DRAINAGE FROM PEG SITE. TUBE INTACT AND CLAMPED. SITE CLEANSED AND 4X4'S AND ABD. DRESSINGS APPLIED OVER PEG TUBE. BED ALARM ON AND INFORMED HOW TO CALL STAFF FOR HELP UP. VERBALIZES UNDERSTANDING.
--- NOTE | 2019-03-14 23:31 | NUR ---
03/14/19 2320 BED ALARM SOUNDING AND PT DANGLED ON SIDE OF BED AND USING THE URINAL. REMINDED HIM TO CALL FIRST FOR SAFETY. STATES "I FORGOT."
[2019-03-15 05:24] LABS: BASOPHILS ABSOLUTE AUTO 0.01 K/mm3 (0.00-0.23); BASOPHILS PERCENT AUTO 0 % (0-2); EOSINOPHILS PERCENT AUTO 0 % (0-6); Hematocrit 54.5 % (37.0-53.0); IMMATURE GRAN ABSOLUTE AUTO 0.06 K/mm3 (0.00-0.10); IMMATURE GRAN PERCENT AUTO 0 % (0-1); LYMPHOCYTES ABSOLUTE AUTO 0.39 K/mm3 (0.84-5.20); LYMPHOCYTES PERCENT AUTO 3 % (21-46); MONOCYTES ABSOLUTE AUTO 0.36 K/mm3 (0.16-1.47); MONOCYTES PERCENT AUTO 2 % (4-13); Mean Corpuscular HGB 32.1 pg (26.0-34.0); Mean Corpuscular HGB Conc 29.4 g/dL (31.5-36.5); Mean Corpuscular Volume 109 fL (80-100); Mean Platelet Volume 10.5 fL (9.1-12.4); NEUTROPHILS ABSOLUTE AUTO 14.85 K/mm3 (1.96-9.15); NEUTROPHILS PERCENT AUTO 95 % (41-73); Platelet Count 109 K/mm3 (150-400); RDW Coefficient Variation 14.1 % (11.7-14.2); RDW Standard Deviation 57.7 fL (35.1-46.3); Red Blood Cell Count 4.99 M/mm3 (4.30-5.90); White Blood Cell Count 15.67 K/mm3 (4.00-11.30)
[2019-03-15 05:50] LABS: Albumin, Blood 2.8 g/dL (3.4-5.0); Anion Gap 0 mmol/L (6-16); Blood Urea Nitrogen 30 mg/dL (8-24); Bun/Creatinine Ratio 56.8 (12.0-20.0); CO2, Blood 34 mmol/L (21-32); Calcium, Blood 8.5 mg/dL (8.5-10.1); Chloride, Blood 104 mmol/L (98-108); Creatinine, Blood 0.53 mg/dL (0.60-1.20); Glomerular Filtration Rate >60 (60-); Glucose, Blood 143 mg/dL (70-99); Phosphorus, Blood 2.8 mg/dL (2.5-4.9); Potassium, Blood 5.3 mmol/L (3.5-5.5); Sodium, Blood 138 mmol/L (136-145)
--- NOTE | 2019-03-15 06:41 | NUR ---
03/15/19 0630 AWAKENED FOR AM MED AND PT THEN STARTED TRYING TO GET UP FOR VOIDING. VOIDED IN URINAL AND SOME ON FLOOR DUE TO URGENCY WITH VOIDING. IMPULSIVE AND WOULD NOT FOLLOW DIRECTIONS. ASSISTED TO BED WITH HELP OF TOOL ROOM ATTENDANT AND BED ALARM ON.
--- NOTE | 2019-03-15 07:45 | NUR ---
ASSUMED CARE OF PT- BEDSIDE REPORT COMPLETED WITH NIGHT RN DANII. PER REPORT PT WAS ALERT AND ORIENTED PRIOR TO SURGERY TO HAVE PEG TUBE PLACED YESTERDAY. POST-OPERATIVELY PT HAS BEEN VERY CONFUSED AND DAZED. PT BECOMES ANXIOUS AND IMMEDIATELY STARTS GRABBING LINES AND TUBES TRYING TO REMOVE ABDOMINAL BINDER, WHEN STAFF WAKE HIM. PT APPEARS AWAKE, EYES WIDE OPEN BUT NOT ACKNOWLEDGING STAFF MEMBERS PRESENCE. PT STARING BLANKLY AT THE CIELING DURING BEDSIDE REPORT.
--- NOTE | 2019-03-15 12:25 | NUR ---
RECIEVED A CALL FROM DR HAYES. OK TO START PEG TUBE FEEDINGS AT THIS TIME.
--- NOTE | 2019-03-15 13:20 | NUR ---
PT APPEARED MORE ALERT AND ORIENTED THAN THIS MORNING, HOWEVER C/O 9/10 PAIN IN THE PELVIS. PT FAMILY WAS AT THE BEDSIDE WHEN PT REQUESTED PAIN MEDICATION. PT WAS MEDICATED WITH IV DILAUDID AT THE 1MG DOSE (THIS IS WHAT HE HAD PREVIOUSLY RECIEVED). PT IS CURRENTLY SLEEPING AND STATED 0 PAIN AT THIS TIME. ARCHITECTURAL DRAFTSMAN NOTED REDNESS ON THE SHAFT OF THE PT PENIS WELL WHAT APPEARS TO BE A SMALL BRUISE. PT SLEEPING AT THIS TIME WILL TRY TO VISUALIZE WHEN THE PT IS ASSISTED WITH THE URINAL.
--- NOTE | 2019-03-15 17:29 | NUR ---
DR BLAKE CAME TO SEE THE PT AND SPOKE VERY PLAINLY TO HIM ABOUT HIS PROGNOSIS. PT SEEMED TO BE SHELL SHOCKED AND NEEDED SOMEONE TO TALK TO. OFF[facility] AND HE AGREED. PT HAD REQUESTED PAIN MEDICATION HOWEVER IT MAKES HIM GROGGY. SPOKE TO HIM ABOUT PAIN MEDICINE NOW AND HE STATED HE WILL BE OK AND WANTS TO WAIT UNTIL HE VISITS WITH PASTORAL CARE. CALLED KRISTEN FROM [facility] AND SHE IS GOING TO SEE HIM.
--- NOTE | 2019-03-15 18:23 | NUR ---
Inital spiritual care note: Asked by RN to visit Mr. Peralta as he had just been given life-changing news. He is very soft-spoken and often sat in silence. He appears emotionally withdrawn and did not know what to say. He admits he is fearful. He is Sikhism, and reports no fear of . He is fearful of suffering. I provided gentle spiritual direction and prayer. He expressed gratitude for my visit. I suspect Mr. Peralta will need a day to absorb this new information, and may benefit from palliative care RN visit tomorrow. Centrifugal Drier Operator services will remain available.
--- NOTE | 2019-03-15 20:13 | NUR ---
SHIFT SUMMARY- PT SPOKE TO PASTORAL CARE. PT STATED HE WAS NOT SURE WHAT TO THINK, HE SEEMS TO STILL BE IN SHOCK FROM ALL THAT INFORMATION. PT IS AWARE HE HAS DECISIONS TO MAKE [place]ONG FORWARD. SPOKE TO HIM ABOUT PALLIATIVE CARE COMING TO TALK TO HIM AND EXPLAIN HIS OPTIONS AND CODE STATUS. PT HAS C/O PAIN IN HIS HIPS AND PELVIS, IV DILAUDID SEEMS TO WORKS WELL. HOB LOCKED AT 30 DEGREES AND THE PT SEEMS TO BE TOLLERATING HIS TUBE FEEDINGS WELL AT THIS TIME. PASSED ALL ON IN REPORT TO NIGHT RN.
--- NOTE | 2019-03-15 23:55 | NUR ---
2114 PEG TUBE FEEDING RATE CHANGED FROM 25ML/HR TO 35ML/HR PER ORDERS. EDUCATION GIVEN TO PT. 2300 PT DENIES OF HAVING ABD CRAMPING OR PAIN.
--- NOTE | 2019-03-16 04:25 | NUR ---
ELECTRONICS WARFARE TECHNICIAN SUMMARY PT SLEPT ON AND OFF TONIGHT. PT HAS BEEN EMOTIONAL MOST OF THE NIGHT DUE TO HIS DIAGNOSIS. PT HAS CHRONIC BILATERAL HIP PAIN WHICH I HAVE MEDICATED HIM WITH DILAUDID 1MG MULTIPLE TIMES TONIGHT. PT A/O X2 TO PLACE AND SELF AND TALKS REALLY QUIETLY IT IS HARD TO HEAR HIM MOST OF THE TIME. PT STANDS UP BY BEDSIDE AND USES URINAL FREQUENTLY. DOES NOT CALL APPROPRIATELY. BED ALARM ON. PT HAS NOT HAD ANY ABD CRAMPING SINCE RATE JEVITY RATE CHANGE FROM 25ML/HR TO 35ML/HR. HAD TOLERATED RATE CHANGE WELL.
[2019-03-16 05:35] LABS: BASOPHILS ABSOLUTE AUTO 0.01 K/mm3 (0.00-0.23); BASOPHILS PERCENT AUTO 0 % (0-2); EOSINOPHILS PERCENT AUTO 0 % (0-6); Hematocrit 52.1 % (37.0-53.0); Hemoglobin 15.3 g/dL (13.5-17.5); IMMATURE GRAN ABSOLUTE AUTO 0.05 K/mm3 (0.00-0.10); IMMATURE GRAN PERCENT AUTO 0 % (0-1); LYMPHOCYTES ABSOLUTE AUTO 0.57 K/mm3 (0.84-5.20); LYMPHOCYTES PERCENT AUTO 4 % (21-46); MONOCYTES ABSOLUTE AUTO 0.76 K/mm3 (0.16-1.47); MONOCYTES PERCENT AUTO 5 % (4-13); Mean Corpuscular HGB 31.4 pg (26.0-34.0); Mean Corpuscular HGB Conc 29.4 g/dL (31.5-36.5); Mean Corpuscular Volume 107 fL (80-100); NEUTROPHILS ABSOLUTE AUTO 13.09 K/mm3 (1.96-9.15); NEUTROPHILS PERCENT AUTO 91 % (41-73); Platelet Count 107 K/mm3 (150-400); RDW Standard Deviation 55.7 fL (35.1-46.3); Red Blood Cell Count 4.88 M/mm3 (4.30-5.90); White Blood Cell Count 14.48 K/mm3 (4.00-11.30)
[2019-03-16 06:01] LABS: Anion Gap 0 mmol/L (6-16); Blood Urea Nitrogen 26 mg/dL (8-24); Bun/Creatinine Ratio 53.6 (12.0-20.0); CO2, Blood 36 mmol/L (21-32); Calcium, Blood 8.5 mg/dL (8.5-10.1); Chloride, Blood 104 mmol/L (98-108); Creatinine, Blood 0.49 mg/dL (0.60-1.20); Glomerular Filtration Rate >60 (60-); Glucose, Blood 136 mg/dL (70-99); Magnesium, Blood 2.3 mg/dL (1.6-2.4); Phosphorus, Blood 1.9 mg/dL (2.5-4.9); Potassium, Blood 4.8 mmol/L (3.5-5.5); Sodium, Blood 140 mmol/L (136-145)
--- NOTE | 2019-03-16 07:52 | NUR ---
PEG TUBE FEEDING INCREASED- RESIDUAL IS 0 PT HAS NO C/O PAIN IN THE ABDOMEN. INCREASED THE RATE TO 50ML/HR PER THE SUGGESTED INCREASE, GOAL RATE IS 60ML PER HOUR. PT SHOULD REACH THAT TODAY. PT DENIES NAUSEA.
--- NOTE | 2019-03-16 07:53 | NUR ---
ASSUMED CARE OF PT- BEDSIDE REPORT COMPLETED WITH NIGHT RN. PT SET OFF THE BED ALARM AND WAS STANDING AT THE BEDSIDE WITH THE URINAL (WOBBLING). PT APPEARS BRIGHTER AND HAD A LARGE SMILE FOR ONCOMING STAFF. PER REPORT FROM NIGHT RN PT HAD SOME CONFUSION T/O THE NIGHT. PT DOES NOT RECALL THIS. POSSIBLY SOME OWNERS.. PER REPORT PT MIXED UP THE CUP FOR ORAL SWABS, URINAL AND CALL LIGHT T/O THE NIGHT. HOUSKEEPING WAS CALLED FOR A MOP UP AT ONE POINT. PT STILL HAS CLINIMIX GOING AT THIS TIME WELL THE PEG TUBE FEEDING THAT WAS TITRATED UP AGAIN AT THE START OF THE SHIFT. RESIDUALS ARE STILL 0 ML AT THIS TIME. PT DENIES ANY STOMACH UPSET OR PAIN. WILL CTM.
--- NOTE | 2019-03-16 09:30 | NUR ---
PT ABDOMINAL PAIN- REDUCED FEEDING TO 40 ML PER HOUR. PT SEEMS TO BE TOLLERATING IT WELL AT THIS TIME.
--- NOTE | 2019-03-16 11:30 | NUR ---
Clinical Visit: Pt is alert, oriented. He reports he is in better spirits today, has slept fairly well overnight. He states that he is having some difficulty with anxiety and racing thoughts. Breathing is shallow. Reports 9/10 pain level in his abd and his hips. He states that pain is not sharp, it is diffuse over belly. He has gotten medication for nausea today. He has also received his regular medications and an antibiotic per PEG tube. Nurse, Donna, is present for visit. She is giving pain medication. Pt reports that this has been helpful. Gentle visit with pt. No discussion made for code status at this time. Palliative care to follow pt for duration of his hospital stay for symptom management and support. No other concerns or questions from the pt at this time. Will remain available.
--- NOTE | 2019-03-16 11:30 | NUR ---
PT MORNING MEDS GIVEN VIA PEG TUBE. SPOKE TO PHARMACY ABOUT WHAT CAN BE CRUSHED AND PUT IN THE FEEDING TUBE. MUCINEX NOT OK TO CRUSH, HELD FOR THIS REASON. PT C/O NAUSEA SHORTLY AFTER THIS. TUBE FEED STOPPED FOR A SHORT WHILE AND PT MEDICATED FOR NAUSEA.
--- NOTE | 2019-03-16 15:00 | NUR ---
CALLED RESPIRATORY THERAPY- 1400 RT STEPHAN CAME TO THE BEDSIDE. SPOKE TO DR HAYES ABOUT RT TREATMENT MEDS. NEW ORDERS IN THE EMAR. PT SEEN BY DR ANAND A LITTLE LATER, O2 HAS BEEN INCREASED TO 7.5L. FAMILY AT THE BEDSIDE SHORTLY AFTER THE INCREASE. PT HAS PAIN AND HAS BEEN BEING MEDICATED WITH 1MG IV DILAUDID, GIVEN HIS RESPIRATORY STATUS WILL PASS ON TO THE NEXT SHIFT TO TRY TORADOL INSTEAD.
--- NOTE | 2019-03-16 15:46 | NUR ---
LATE ENTRY FOR 03/14/19 AT 1445. PATIENT RECEIVED IN DAY SURGERY FOLLOWING PEG TUBE PLACEMENT FOR OBSERVATION. TO BE TRANSFERRED BACK TO MEDICAL WHEN RESPIRATORY STATUS IS AT BASELINE PER DR TINSLEY. RESPIRATORY AT BEDSIDE. ABLE TO WEAN O2 DOWN TO 6L HIGH FLOW NC WHICH IS BASELINE FOR PATIENT ON MEDICAL FLOOR. PATIENT WAS ABLE TO MAINTAIN SATS WNL AND WAS TRANSPORTED BACK TO MEDICAL FLOOR. PT WAS ABLE TO ASSIST TRANSFER TO HIS HOSPITAL BED.
[2019-03-16 16:30] LABS: Base Excess Venous 9.9 mmol/L; Bicarbonate Venous 30.7 mmol/L (24.0-30.0); PCO2 Venous 68.7 mmHg (38-42); PO2 Venous 132 mmHg (38-42); pH Blood Venous 7.33 (7.34-7.37)
--- NOTE | 2019-03-16 17:25 | NUR ---
Pt reports anxiety today. He has used klonapin in the past for this that was effective. He is requesting an order for the medication PRN for treatment of his anxiety. Please consider PRN medication to support pt's anxiety.
--- NOTE | 2019-03-16 19:33 | NUR ---
SHIFT SUMMARY- PT RESPIRATORY STATUS IS NO VERY GOOD TODAY. HE STARTED THE DAY ON 6L VIA NC AND AFTER AN EPISODE AT AROUND 1400 WHERE HIS SATS DROPPED INTO THE 80'S PT O2 HAS BEEN AT 7.5L VIA HIGH FLOW NC. PT HAS SCHEDULED BREATHING Tx AND PRN. NEW MED ORDERED BY PULMONOLOGY TO HELP BREAK UP THE MUCUS. SPOKE TO RESPIRATORY THERAPIST STEPHAN ABOUT THE POSSIBLE BENNIFITS OF PERCUSSION OR DEEP SUCTION. RECIEVED AN ORDER FOR PERCUSSION Q6 TOLLERATED. SPOKE TO DR ANAND ABOUT DEEP SUCTION, PER DR ANAND IF PT IS IN RESPIRATORY DISTRESS THEN DEEP SUCTION WOULD BE INDICATED. WILL PLACE RN ORDER FOR DEEP SUCTION IN THE EVENT OF RESPIRATORY DISTRESS. PT NOT TOLLERANT OF THE TUBE FEEDING INCREASE AND IS STILL AT 40ML PER HOUR THIS EVENING. PT HAD C/O NAUSEA WITH MORNING MEDICATIONS.
--- NOTE | 2019-03-17 04:02 | NUR ---
SHIFT SUMMARY: PATIENT SEEMS TO BE MORE ALERT AND ORIENTED THIS AM BUT STILL IMPULSIVE WHEN HE NEEDS TO USE THE RESTROOM, PATIENT ALSO HAS URINARY URGENCY. PAIN MEDICATION X2, USING SUCTION ON SELF. ATTEMPTD TO INCREASE PATIENTS TUBE FEED TO 50 AT APPROX 1999 BUT PATIENT STATED HE WAS EXPERIENCING ABDOMINAL DISCOMFORT, DISCOMFORT STOPPED WHEN FEEDING RATE DECREASED, RESIDUALS WITHIN PERAMETERS IN MD ORDERS (SEE MEDICAL RECORD), HOB AT 45 DEGREE ANGLE AT THE LOWEST WITH TF RUNNING. ALL OTHER VSS, CALL LIGHT WITHIN REACH, BED LOW AND LOCKED WITH EXIT ALARM ON.
[2019-03-17 06:00] LABS: BASOPHILS ABSOLUTE AUTO 0.01 K/mm3 (0.00-0.23); BASOPHILS PERCENT AUTO 0 % (0-2); EOSINOPHILS PERCENT AUTO 0 % (0-6); Hematocrit 51.8 % (37.0-53.0); Hemoglobin 15.4 g/dL (13.5-17.5); IMMATURE GRAN ABSOLUTE AUTO 0.04 K/mm3 (0.00-0.10); IMMATURE GRAN PERCENT AUTO 0 % (0-1); LYMPHOCYTES ABSOLUTE AUTO 0.28 K/mm3 (0.84-5.20); LYMPHOCYTES PERCENT AUTO 2 % (21-46); MONOCYTES ABSOLUTE AUTO 0.32 K/mm3 (0.16-1.47); MONOCYTES PERCENT AUTO 3 % (4-13); Mean Corpuscular HGB 31.4 pg (26.0-34.0); Mean Corpuscular HGB Conc 29.7 g/dL (31.5-36.5); Mean Corpuscular Volume 106 fL (80-100); Mean Platelet Volume 10.9 fL (9.1-12.4); NEUTROPHILS ABSOLUTE AUTO 11.37 K/mm3 (1.96-9.15); NEUTROPHILS PERCENT AUTO 95 % (41-73); Platelet Count 114 K/mm3 (150-400); RDW Coefficient Variation 13.9 % (11.7-14.2); White Blood Cell Count 12.02 K/mm3 (4.00-11.30)
[2019-03-17 06:26] LABS: Alanine Aminotransfer (ALT/SGP 27 U/L (12-78); Albumin, Blood 2.5 g/dL (3.4-5.0); Albumin/Globulin Ratio 0.7 (0.8-1.8); Anion Gap 3 mmol/L (6-16); Aspartate Aminotrans (AST/SGOT 15 U/L (12-37); Bilirubin, Total 0.4 mg/dL (0.1-1.0); Blood Urea Nitrogen 20 mg/dL (8-24); Bun/Creatinine Ratio 38.5 (12.0-20.0); CO2, Blood 35 mmol/L (21-32); Calcium, Blood 8.4 mg/dL (8.5-10.1); Chloride, Blood 104 mmol/L (98-108); Creatinine, Blood 0.52 mg/dL (0.60-1.20); Globulin, Blood 3.8 g/dL (2.2-4.0); Glomerular Filtration Rate >60 (60-); Glucose, Blood 156 mg/dL (70-99); Magnesium, Blood 2.2 mg/dL (1.6-2.4); Potassium, Blood 4.4 mmol/L (3.5-5.5); Sodium, Blood 142 mmol/L (136-145); Total Protein, Blood 6.3 g/dL (6.4-8.2)
[2019-03-17 06:27] LABS: Alk Phos 70 U/L (50-136)
--- NOTE | 2019-03-17 09:23 | NUR ---
Pt visit this AM. Pt resting in bed and reports 9/10 pain in his hips. He reports mild anxiety due to pain and being in the hospital. Pt reports moderate dyspnea and just received a breathing treatment. Pt is requesting pain medication. No other concerns reported at this time. Spoke with bedside RN Emily, discussed case, and reported Pt's pain. Palliative Care will remain available.
--- NOTE | 2019-03-17 17:39 | NUR ---
SHIFT SUMMARY NO ACUTE CHANGES. PATIENT MEDICATED SEVERAL TIMES FOR PAIN. PATIENT DENIES NAUSEA AND SHORTNESS OF BREATH. PATIENT BECOMES SHORT OF BREATH AND VERY TIRED WITH MINIMAL EXERTION. PATIENT ABLE TO USE URINAL AT BEDSIDE. PT WORKED WITH PATIENT. PEG TUB RUNNING AT 50 MLS/HR WITH 100ML WATER FLUSHES Q4. CALL LIGHT IN REACH.
--- NOTE | 2019-03-18 01:49 | NUR ---
Remains NPO, peg tube patent and Jevity infusing as per MD orders. Bed alarm on. Continent of urine. Peg tube site CDI. Call light in reach.
[2019-03-18 05:40] LABS: Hematocrit 51.6 % (37.0-53.0); Hemoglobin 15.5 g/dL (13.5-17.5); Mean Corpuscular HGB 31.4 pg (26.0-34.0); Mean Corpuscular Volume 105 fL (80-100); Mean Platelet Volume 10.5 fL (9.1-12.4); Platelet Count 120 K/mm3 (150-400); RDW Standard Deviation 54.4 fL (35.1-46.3); Red Blood Cell Count 4.93 M/mm3 (4.30-5.90); White Blood Cell Count 16.65 K/mm3 (4.00-11.30)
[2019-03-18 05:56] LABS: Albumin, Blood 2.5 g/dL (3.4-5.0); Anion Gap 3 mmol/L (6-16); Blood Urea Nitrogen 20 mg/dL (8-24); Bun/Creatinine Ratio 37.2 (12.0-20.0); CO2, Blood 34 mmol/L (21-32); Calcium, Blood 8.6 mg/dL (8.5-10.1); Chloride, Blood 104 mmol/L (98-108); Creatinine, Blood 0.54 mg/dL (0.60-1.20); Glomerular Filtration Rate >60 (60-); Glucose, Blood 158 mg/dL (70-99); Phosphorus, Blood 1.7 mg/dL (2.5-4.9); Potassium, Blood 4.3 mmol/L (3.5-5.5); Sodium, Blood 141 mmol/L (136-145)
--- NOTE | 2019-03-18 17:36 | NUR ---
SHIFT SUMMARY PATIENT MEDICATED SEVERAL TIMES FOR PAIN THIS SHIFT. PATIENT TIRES AND GETS SHORT OF BREATH EASILY WITH ACTIVITY. PATIENT ADVANCED TO BOLUS FEEDS TODAY. TOLERATING WELL WITH OCCASSIONAL STOMACH CRAMPING THAT RESOLVES QUICKLY. PATIENT HAS NOT HAD BM IN SEVERAL DAYS, NEW ORDERS FOR BOWEL CARE GIVEN. CALL LIGHT IN REACH.
--- NOTE | 2019-03-19 04:34 | NUR ---
SHIFT SUMMARY: VSS. AFEB. 02 SATS 93% ON 5L VIA NC. A/OX4. COMMUNICATES NEEDS. TAB ALARM SOUNDING EACH TIME PT STANDS TO VOID. PT HAS NOT ATTEMPTED TO STEP AWAY FROM BEDSIDE INDEPENDENTLY. APPEARS TO HAVE GOOD SAFETY AWARENESS. ADMINISTERED PEG TUBE FEED AT 2300 TO ALLOW 4 HOURS BETWEEN LAST DOSE. PT CHRIS TF WELL UNTIL THE END OF THE BOLUS WHEN HE REPORTED UPSET STOMACH AND NAUSEA. ZOFRAN ADMINISTERED WITH COMPLETE RELIEF OF SYMPTOMS. PT REMAINS SITTING UPRIGHT IN BED ALL NIGHT. SLEEPING PRESENTLY. BED LOW, TAB ALARM ON, CALL BUTTON IN REACH. WILL CONT TO MONITOR.
--- NOTE | 2019-03-19 18:38 | NUR ---
SHIFT SUMMARY. PT LETHARGIC THIS AM POST DILAUDID ADMINISTRATION, REQUIRED PHYSICAL STIMULATION TO ARROUSE TILL APROXIMATELY 1000. PT BECAME MORE ALERT THE DAY PROGRESSED. AM TUBE FEEDING BOLUS OF 360ML GIVEN AT APPROXIMATELY 0815. RESIDUAL CHECKED PRIOR TO MEDICATION ADMINISTRATION AT 0945, 360ML WITHDREW. CN, CHARGER OPERATOR HELPER, AND DR. HOWARD NOTIFIED. REVIEWED CHART, NO BM NOTED SINCE ADMISSION, PT REPORTS NO BM. SUPPOSITORY GIVEN. ABD XR COMPLETED THIS AFTERNOON. REVIEWED CASE WITH CHARGER OPERATOR HELPER AFTER ABD XR RESULTS REVIEWED, WILL START CONTINUOUS FEEDINGS AT 60ML/HR WITH H2O FLUSH OF 30ML Q4H. DR. HOWARD NOTIFIED, SHE ORDERED FLEET ENEMA AND REPORTED WILL REEVALUATE TUBE FEEDING AND CONSTIPATION STATUS AFTER INTERVENTIONS COMPLETED. PT IS RESISTANT WITH CARE AT TIMES, ATTEMPTED TO SHOWER PT FOUR TIMES THIS SHIFT, ATTEMPTED TO HAVE PT SIT UP IN CHAIR, THREE TIMES THIS SHIFT. PT USUALLY STATES, "JUST WAIT A LITTLE BIT." NO OTHER CHANGES OR CONCERNS.
[2019-03-20 05:52] LABS: Hematocrit 53.8 % (37.0-53.0); Hemoglobin 15.7 g/dL (13.5-17.5); Mean Corpuscular HGB 31.7 pg (26.0-34.0); Mean Corpuscular HGB Conc 29.2 g/dL (31.5-36.5); Mean Platelet Volume 10.9 fL (9.1-12.4); Platelet Count 107 K/mm3 (150-400); RDW Coefficient Variation 14.2 % (11.7-14.2); RDW Standard Deviation 57.6 fL (35.1-46.3); Red Blood Cell Count 4.95 M/mm3 (4.30-5.90); White Blood Cell Count 14.16 K/mm3 (4.00-11.30)
[2019-03-20 05:54] LABS: Mean Corpuscular Volume 109 fL (80-100)
[2019-03-20 06:21] LABS: Albumin, Blood 2.5 g/dL (3.4-5.0); Anion Gap -1 mmol/L (6-16); Blood Urea Nitrogen 27 mg/dL (8-24); CO2, Blood 39 mmol/L (21-32); Calcium, Blood 8.7 mg/dL (8.5-10.1); Chloride, Blood 99 mmol/L (98-108); Glomerular Filtration Rate >60 (60-); Glucose, Blood 211 mg/dL (70-99); Phosphorus, Blood 2.7 mg/dL (2.5-4.9); Potassium, Blood 5.3 mmol/L (3.5-5.5); Sodium, Blood 137 mmol/L (136-145)
--- NOTE | 2019-03-20 06:39 | NUR ---
SHIFT SUMMARY PATIENT STAYED AWAKE MOST OF THE NIGHT. VERY PLEASANT. DID NOT ASK FOR ANYTHING. PATIENT'S IV PATENT AND FLUSHED. ON 5 LITERS O2 VIA NASAL CANULA. PEG TUBE PATENT AND FLUSHED. BED IN LOWEST POSITION WITH WHEELS LOCKED. CALL LIGHT WITHIN REACH. REPORT GIVEN TO ONCOMING RN.
--- NOTE | 2019-03-20 12:13 | NUR ---
Patient gave Student Nurse Sam Abreu, permission to view medical record on 03/20/2019.
--- NOTE | 2019-03-20 18:16 | NUR ---
SHIFT SUMMARY. A&OX3, SBA TO BSC, USES URINAL AT BEDSIDE INDEPENDENTLY. PT CONTINUES WITH CONSTIPATION, FLLET ENEMA GIVEN THIS AM, PT HAD SMALL BM. SOAP SUDS ENEMA GIVEN THIS AFTERNOON, PT HAD NO RESULTS. PT RECIEVED ALL AM BOWEL CARE MEDICATIONS WELL. PT REPORTED ONE EPISODE OF NAUSEA THIS AFTERNOON THAT WAS MANAGED WELL WITH IV ZOFRAN. PT REPORTED CHRONIC BILATERAL HIP PAIN THAT WAS MANAGED WELL WITH CURRENT ORDERS. MEPILEX'S TO COCCYX/SACRAM AND HIPS CHANGED.
--- NOTE | 2019-03-21 03:25 | NUR ---
Pt c/o SOB. HOB elevated, O2 sats in high 80's. RT notified, placed on Bi-Pap per MD orders.
--- NOTE | 2019-03-21 04:06 | NUR ---
HEART RATE CONTINUED IN 140'S - 150'S. CALL PLACED TO M FILTER CLEANER. ORDERS FOR LOPRESSOR 5 MG IV Q 6 HR PRN OBTAINED. FIRST DOSE GIVEN, CURRENTLY HR 120'S. BI-PAP IN USE O2 SATS HIGH 80'S - TO LOW 90'S. ENCOURAGED TO TAKE DEEP BREATHS. WILL CONTINUE TO MONITOR. CALL LIGHT IN REACH. PT MORE CALM.
[2019-03-21 05:40] LABS: Hemoglobin 17.1 g/dL (13.5-17.5); Mean Corpuscular HGB 31.8 pg (26.0-34.0); Mean Corpuscular HGB Conc 29.9 g/dL (31.5-36.5); Mean Platelet Volume 10.9 fL (9.1-12.4); Platelet Count 89 K/mm3 (150-400); RDW Coefficient Variation 14.3 % (11.7-14.2); RDW Standard Deviation 56.2 fL (35.1-46.3); Red Blood Cell Count 5.37 M/mm3 (4.30-5.90); White Blood Cell Count 16.08 K/mm3 (4.00-11.30)
[2019-03-21 05:45] LABS: Hematocrit 57.1 % (37.0-53.0); Mean Corpuscular Volume 106 fL (80-100)
[2019-03-21 06:00] LABS: Albumin, Blood 2.4 g/dL (3.4-5.0); Anion Gap 2 mmol/L (6-16); Blood Urea Nitrogen 23 mg/dL (8-24); CO2, Blood 34 mmol/L (21-32); Chloride, Blood 98 mmol/L (98-108); Creatinine, Blood 0.61 mg/dL (0.60-1.20); Glomerular Filtration Rate >60 (60-); Glucose, Blood 178 mg/dL (70-99); Phosphorus, Blood 1.7 mg/dL (2.5-4.9); Potassium, Blood 5.6 mmol/L (3.5-5.5); Sodium, Blood 134 mmol/L (136-145)
--- NOTE | 2019-03-21 09:42 | NUR ---
PERMISSION PATIENT GAVE PERMISSSION OF CARE ON 03/21/2019.
[2019-03-21 14:20] LABS: Anion Gap 0 mmol/L (6-16); Blood Urea Nitrogen 28 mg/dL (8-24); Bun/Creatinine Ratio 44.2 (12.0-20.0); CO2, Blood 40 mmol/L (21-32); Chloride, Blood 98 mmol/L (98-108); Creatinine, Blood 0.63 mg/dL (0.60-1.20); Glomerular Filtration Rate >60 (60-); Glucose, Blood 178 mg/dL (70-99); Potassium, Blood 4.8 mmol/L (3.5-5.5); Sodium, Blood 138 mmol/L (136-145)
[2019-03-21 17:07] LABS: % CD 4 POS. LYMPH. 27.3 % (30.8-58.5); ABSOLUTE CD 4 HELPER 82 /uL (359-1519); BASOS 0 % (Not Estab.); EOS 0 % (Not Estab.); HEMATOCRIT 46.9 % (37.5-51.0); HEMOGLOBIN 15.4 g/dL (13.0-17.7); IMMATURE GRANS (ABS) 0.1 x10E3/uL (0.0-0.1); IMMATURE GRANULOCYTES 1 % (Not Estab.); LYMPHS 2 % (Not Estab.); LYMPHS (ABSOLUTE) 0.3 x10E3/uL (0.7-3.1); MCH 32.2 pg (26.6-33.0); MCHC 32.8 g/dL (31.5-35.7); MCV 98 fL (79-97); MONOCYTES 6 % (Not Estab.); MONOCYTES(ABSOLUTE) 0.9 x10E3/uL (0.1-0.9); NEUTROPHILS 91 % (Not Estab.); NEUTROPHILS (ABSOLUTE) 12.9 x10E3/uL (1.4-7.0); PLATELETS 137 x10E3/uL (150-450); RBC 4.79 x10E6/uL (4.14-5.80); RDW 13.1 % (11.6-15.4); WBC 14.1 x10E3/uL (3.4-10.8)
--- NOTE | 2019-03-21 18:29 | NUR ---
SUMMARY PT SITTING UP IN BED WATCHING TV, PT HAS BEEN OFF AND ON THE BIPAP TODAY, PT HAS WORKED WITH PT/OT, MED PER EMAR FOR PAIN, PT TOLERATING TUBE FEEDS, TELE ON TO MONITOR HEART RATE, PT GETTING ONE BAG OF FLUIDS ALSO, PT HAS BEEN PLEASANT AND COOPERATIVE WITH CARE, WILL CONT TO MONITOR
--- NOTE | 2019-03-22 17:47 | NUR ---
SUMMARY PT SITTING UP IN BED WATCHING TV, PT SWITCHED TO PUMP ASSISTED BOLUS FEEDS TODAY, CHRIS WELL, PT MED PER EMAR FOR PAIN, FAMILY HAS BEEN IN TO VISIT, PT IS PLEASANT AND COOPERATIVE WITH CARE, WILL CONT TO MONITOR
[2019-03-23 03:57] LABS: Hematocrit 51.6 % (37.0-53.0); Hemoglobin 15.4 g/dL (13.5-17.5); Mean Corpuscular HGB 31.6 pg (26.0-34.0); Mean Corpuscular HGB Conc 29.8 g/dL (31.5-36.5); Mean Corpuscular Volume 106 fL (80-100); Mean Platelet Volume 11.3 fL (9.1-12.4); Platelet Count 84 K/mm3 (150-400); RDW Coefficient Variation 14.2 % (11.7-14.2); RDW Standard Deviation 56.5 fL (35.1-46.3); Red Blood Cell Count 4.87 M/mm3 (4.30-5.90); White Blood Cell Count 13.54 K/mm3 (4.00-11.30)
[2019-03-23 04:13] LABS: Anion Gap 2 mmol/L (6-16); Blood Urea Nitrogen 20 mg/dL (8-24); Bun/Creatinine Ratio 33.8 (12.0-20.0); CO2, Blood 35 mmol/L (21-32); Calcium, Blood 9.1 mg/dL (8.5-10.1); Chloride, Blood 97 mmol/L (98-108); Creatinine, Blood 0.59 mg/dL (0.60-1.20); Glomerular Filtration Rate >60 (60-); Glucose, Blood 153 mg/dL (70-99); Phosphorus, Blood 1.9 mg/dL (2.5-4.9); Potassium, Blood 4.5 mmol/L (3.5-5.5); Sodium, Blood 134 mmol/L (136-145)
--- NOTE | 2019-03-23 04:47 | NUR ---
TRANSFER PT RECEOVED FROM PCU 12 D/T INCREASING O2 REQUIREMENTS AND NEED FOR BIPAP. PT IS AWAKE AND ALERT. ORIENTED X 3. COOPERATIVE WITH CARE. APPEARS TO BE TOLERATING BIPAP AT THIS TIME. BIPAP 16/10, BUR 14, FIO2 100%. RR MID-30s. PT STATES HE FEELS LIKE HE'S BREATHING BETTER. MONITOR SHOWS SR-ST, RATE 90-110s. BP 114/77. ATTENDS IN PLACE. PEG TUBE NOTED, CLAMPED. DRSG C/D/I TO COCCYX/SACRUM/HIPS FOR PROTECTION. C/O HIP PAIN- WILL MEDICATE PER ORDER WHEN MEDICATION AVAILABLE FROM PHARMACY.
[2019-03-23 05:25] LABS: BAND PERCENT MAN 25 % (0-8); BASOPHILS PERCENT MAN 0 % (0-2); EOSINOPHILS ABSOLUTE MAN 0.13 K/mm3 (0.00-0.68); EOSINOPHILS PERCENT MAN 1 % (0-6); MONOCYTES ABSOLUTE MAN 0.13 K/mm3 (0.16-1.47); MONOCYTES PERCENT MAN 1 % (4-13); TOTAL CELLS COUNTED 100
[2019-03-23 05:28] LABS: LYMPHOCYTES ABSOLUTE MAN 0.13 K/mm3 (0.84-5.20); LYMPHOCYTES PERCENT MAN 1 % (21-46); NEUTROPHILS ABSOLUTE MAN 13.13 K/mm3 (1.96-9.15); SEG NEUTROPHILS PERCENT MAN 72 % (41-73)
--- NOTE | 2019-03-23 05:39 | NUR ---
pt needing more oxygen and breathing treatments, informed hospitalist and he ordered the pt transfered to ICU. Maxed out fio2, at 100% on bipap and sating 91% difficulty breathing, destat with any exertion, transfered to ICU via stretcher at 0447, report given to Rina CHANDRA, all belongings transfered with pt, left message on 's voice mail r/transfere to ICU
--- NOTE | 2019-03-23 06:20 | NUR ---
PRECEDEX PT C/O FEELING ANXIOUS WITH BIPAP. PRECEDEX STARTED AT 0.2MCG/KG/HR- WILL TITRATE PRN.
--- NOTE | 2019-03-23 06:43 | NUR ---
SHIFT SUMMARY MEDICATED WITH FENTANYL 25MCG IV FOR C/O 9 HIP PAIN. PT STATES PAIN DECREASED TO 7/10. PRECEDEX STARTED TO HELP PT TOLERATE WEARING BIPAP. BIPAP 16/, BUR 14, FIO2 80% NOW. RR STILL IN 30s. MONITOR SHOWS SR-ST, RATE 90-110s WITH OCCASIONAL JUMP UP TO 130-140s. INCREASED RATE IS SELF-LIMITING. POTASSIUM PHOSPHATE 30MMOL STARTED PER ORDER. WILL REPORT TO DAY SHIFT RN WHEN AVAILABLE.
--- NOTE | 2019-03-23 08:00 | NUR ---
ASSUMED CARE OF PT AT 0700. REPORT FROM PORTILLO CHANDRA. PT ON BIPAP 16/10, 80%, O2 SATS MID 90'S. PT SPEAKING IN FULL SENTANCES. LUNGS COARSE THROUGHOUT. NO COUGH NOTED, PT REPORTS OCCASIONAL NON PRODUCTIVE COUGH. PT P/W/D. SR, 100'S, BP STABLE. PEG TUBE TO ABD, DRESSING C/D/I. ABD FIRM, DISTENDED. BT HYPOACTIVE. CLAMPED. PRECEDEX INFUSING AT 0.2 MCG/KG/HR FOR ANXIETY R/T BIPAP. PT STATES THIS IS HELPING. KPHOS BEING REPLACED IV. WILL CONSULT DIETARY FOR NUTRITION. WILL CONTINUE TO MONITOR.
--- NOTE | 2019-03-23 11:14 | NUR ---
DR LAWRENCE AT BEDSIDE. PLAN TO CONTINUE RESP SUPPORT, ANTIBIOTICS FOR PNA. ID CONSULT.
--- NOTE | 2019-03-23 17:08 | NUR ---
SHIFT SUMMARY PT REMAINED ON BIPAP FOR ENTIRE SHIFT. FIO2 TITRATED DOWN TO 65%, O2 SATS MID 90'S. 29/11. LUNGS REMAIN COARSE, NO SPUTUM PRODUCTION. PT AWARE OF NEED FOR SPUTUM SAMPLE. SPEAKING IN FULL SENTANCES. PT P/W/D. TUBE FEEDINGS RESTARTED TODAY, ISOSOURCE 1.5 WILBER, AT GOAL OF 40 ML/HR c q4 30 ML FLUSHES. RESIDUALS LESS THAN 10 ML. PT C/O ABD FULLNESS AND NAUSEA ONCE THIS SHIFT. TOLERATING WELL. MEDICATED c FENTANYL FOR CHRONIC BILATERAL HIP PAIN PRN. PT INCONTINENT OF URINE, ATTENDS CHANGED. ABLE TO URINATE IN URINAL FOR URINE SAMPLE. NO BM THIS SHIFT. PT REFUSED BED BATH THIS SHIFT. ORAL CARE PROVIDED. PRECEDEX CONTINUED AT 2 MCG/KG/HR THIS SHIFT FOR ANXIETY D/T BIPAP. TOLERATING BIPAP WELL. REPORT TO ONCOMING NURSE.
[2019-03-23 17:10] LABS: Source, Urine Catheter
[2019-03-23 17:13] LABS: Bilirubin, Urine Neg (Neg); Blood, Urine 1+ (Neg); Glucose Qualitative, Urine 3+ (Neg); Ketones, Urine Neg (Neg); Leukocyte Esterase, Urine Neg (Neg); Nitrite, Urine Neg (Neg); Protein, Urine 3+ (Neg); Specific Gravity, Urine 1.015 (1.003-1.022); Urobilinogen, Urine NORM (Normal); pH, Urine 6.5 (5.0-8.0)
[2019-03-23 17:37] LABS: Appearance, Urine Hazy (Clear); Color, Urine Yellow (P-Yellow)
[2019-03-23 17:45] LABS: Bacteria Rare /hpf; Squamous Epithelial Cells Few /hpf (Few); White Blood Cells, Urine 0-2 /hpf (0-5); Yeast/Fungi Urine Rare /hpf
--- NOTE | 2019-03-23 19:28 | NUR ---
ASSUMED PT CARE FROM CORAZON MCDONALD BEDSIDE REPORT GIVEN. PT IS RESTING IN BED WITH BIPAP IN PLACE; SETTINGS 16/10; FIO2 65%; RESP RATE 30'S; INCREASED PRECEDEX TO 0.3MCG/KG/HR PT STATES HE IS FEELING ANXIOUS. ISOSOURCE 1.5 INFUSING VIA PEG TUBE, WHICH IS AT GOAL OF 40MLS/HR. NO FAMILY AT BEDSIDE AT THIS TIME. BROTHER, SOPHIA, CALLED FOR AN UPDATE REGARDING PT STATUS.
[2019-03-24 03:44] LABS: Hematocrit 44.6 % (37.0-53.0); Hemoglobin 13.3 g/dL (13.5-17.5); Mean Corpuscular HGB 31.7 pg (26.0-34.0); Mean Corpuscular HGB Conc 29.8 g/dL (31.5-36.5); Mean Corpuscular Volume 106 fL (80-100); Mean Platelet Volume 11.7 fL (9.1-12.4); Platelet Count 77 K/mm3 (150-400); RDW Coefficient Variation 14.3 % (11.7-14.2); RDW Standard Deviation 56.3 fL (35.1-46.3); Red Blood Cell Count 4.19 M/mm3 (4.30-5.90); White Blood Cell Count 11.69 K/mm3 (4.00-11.30)
[2019-03-24 03:45] LABS: Alanine Aminotransfer (ALT/SGP 17 U/L (12-78); Albumin, Blood 1.8 g/dL (3.4-5.0); Albumin/Globulin Ratio 0.4 (0.8-1.8); Alk Phos 102 U/L (50-136); Anion Gap 0 mmol/L (6-16); Aspartate Aminotrans (AST/SGOT 12 U/L (12-37); Bilirubin, Total 0.2 mg/dL (0.1-1.0); Blood Urea Nitrogen 29 mg/dL (8-24); Bun/Creatinine Ratio 39.6 (12.0-20.0); CO2, Blood 37 mmol/L (21-32); Calcium, Blood 8.6 mg/dL (8.5-10.1); Chloride, Blood 95 mmol/L (98-108); Creatinine, Blood 0.73 mg/dL (0.60-1.20); Globulin, Blood 4.4 g/dL (2.2-4.0); Glomerular Filtration Rate >60 (60-); Glucose, Blood 190 mg/dL (70-99); Magnesium, Blood 2.1 mg/dL (1.6-2.4); Phosphorus, Blood 3.1 mg/dL (2.5-4.9); Potassium, Blood 5.7 mmol/L (3.5-5.5); Sodium, Blood 132 mmol/L (136-145); Total Protein, Blood 6.2 g/dL (6.4-8.2)
[2019-03-24 05:23] LABS: BAND PERCENT MAN 12 % (0-8); BASOPHILS PERCENT MAN 0 % (0-2); EOSINOPHILS PERCENT MAN 0 % (0-6); LYMPHOCYTES ABSOLUTE MAN 0.23 K/mm3 (0.84-5.20); LYMPHOCYTES PERCENT MAN 2 % (21-46); MONOCYTES ABSOLUTE MAN 0.46 K/mm3 (0.16-1.47); MONOCYTES PERCENT MAN 4 % (4-13); NEUTROPHILS ABSOLUTE MAN 10.98 K/mm3 (1.96-9.15); SEG NEUTROPHILS PERCENT MAN 82 % (41-73); TOTAL CELLS COUNTED 100
--- NOTE | 2019-03-24 06:22 | NUR ---
END OF SHIFT SUMMARY NO SIGNIFICANT CHANGES SINCE LAST ENTRY. PT HAS SLEPT MOST OF NIGHT. HAD TO DECREASE PRECEDEX BACK DOWN TO 0.2MCG/KG/HR D/T BLOOD PRESSURES ON THE SOFTER SIDE. PT TOLERATED BIPAP ALL NIGHT; 29/11; FIO2 NOW DOWN TO 55%. PT ALSO TOLERATED ORAL CARE EVERY FOUR HOURS ON ROOM AIR WITHOUT ANY DROPS IN OXYGEN SATURATIONS. TMAX 100.1. LUNG SOUNDS REMAIN DIMINISHED T/O ALL LOBES. NSR WITH HR 70'S. ABDOMEN REMAINS FIRM AND MODERATELY DISTENDED; NO BM SINCE 03/20; PT MAY BENEFIT FROM GETTING UP TO SIT ON COMMODE OR TOILET TODAY TO ATTEMPT TO HAVE A BM HE IS RECEIVING BOWEL REGIMEN MEDICATIONS, WELL TUBE FEEDING. ONLY MEDICATED X1 WITH NORCO FOR PAIN, WHICH APPEARED EFFECTIVE FOR PT ALL NIGHT. PT HAS BEEN CONTINENT TONIGHT WITH ASSISTANCE WITH URINAL. PT APPEARS VERY SHY TO ASK FOR ASSISTANCE OR HELP; THEREFORE, WOULD OFFER ASSISTANCE FREQUENTLY WITH URINAL USAGE. POTASSIUM LEVEL SLIGHTLY ELEVATED THIS MORNING; WILL PASS OFF TO DAY RN TO NOTIFY PHYSICIAN PT IS NOT CURRENTLY ON ON ANY POTASSIUM SUPPLEMENTS, BUT CONTINUES ISOSOURCE 1.5 AT A GOAL RATE OF 40MLS/HR. NO RESIDUALS NOTED THIS SHIFT. CALL LIGHT WITHIN REACH; PT APPEARS COMFORTABLE AT THIS TIME. WILL CONTINUE TO MONITOR UNTIL REPORT IS HANDED OFF TO DAY RN.
--- NOTE | 2019-03-24 08:00 | NUR ---
ASSUMED CARE: REPORT RECEIVED FROM JÚNIOR Mims RN. ASSUMED CARE OF THIS PT AT APPROX 0700. ON ASSESSMENT, THE PT IS RESTING QUIETLY. AWAKENS EASILY TO VERBAL STIMULUS & IS ALERT/ORIENTED. HE IS WEARING BIPAP W/ SETTINGS 16/10 & 55% W/ O2 SATS > 92%. LS ARE DIM T/O. MONITOR SHOWS SR W/ HR 70-80s. BP STABLE, HYPOTENSION NOTED W/ RESTING SOUNDLY. PEG TUBE W/ TF INFUSING AT GOAL RATE OF 40 ML/HR, NO RESIDUALS NOTED. PT VOIDS USING URINAL, ATTENDS IN PLACE FOR OCCASIONAL INCONTINENCE. WILL CONTINUE TO MONITOR & UPDATE NEEDED.
--- NOTE | 2019-03-24 10:20 | NUR ---
DR LAWRENCE: PROVIDER AT BEDSIDE TO EVAL PT. WOULD LIKE PRECEDEX TO BE D/C'd PT IS CALM & COOPERATIVE, ORDERS PLACED. CURRENTLY NO OTHER CHANGES, CXR IS RELATIVELY UNCHANGED FROM YESTERDAY, PER PROVIDER REPORT. CONTINUE BIPAP THERAPY.
--- NOTE | 2019-03-24 12:01 | NUR ---
UPDATE / DRESSING CHANGE: PT CONTINUES TOLERATING BIPAP WELL W/ PRECEDEX OFF. DRESSINGS TO COCCYX & BUTTOCKS HAVE BEEN CHANGED W/ BED BATH. AREAS THOROUGLY CLEANSED, HYDROGEL APPLIED & NEW DRESSINGS PLACED.
--- NOTE | 2019-03-24 13:13 | NUR ---
ASSUMED CARE: RECEIVED REPORT FROM CRESENCIO ELDRIDGE RN.
--- NOTE | 2019-03-24 13:22 | NUR ---
UPDATE: PT CURRENTLY ON BIPAP. DENIES PAIN OR ANY NEEDS AT THIS TIME. WILL CONTINUE TO MONITOR. NO ACUTE DISTRESS NOTED. CALL LIGHT IN REACH.
--- NOTE | 2019-03-24 14:57 | NUR ---
PEG TUBE: ADMINISTERED MEDICATION PER ORDERS VIA PEG TUBE BY GRAVITY. CHECKED RESIDUAL NO RESIDUAL NOTED. PT EDUCATED WITH RESIDUAL CHECK AND ADMINISTRATION. NO REDNESS AROUND PEG TUBE SITE. FLUSHED WITH A TOTAL OF 60ML.
--- NOTE | 2019-03-24 17:45 | NUR ---
HIGH FLOW NC: TOOK PT OFF OF BIPAP AND PLACED ON HIGH FLOW NC @ 10L WITH HUMIDAFICATION.
--- NOTE | 2019-03-24 17:56 | NUR ---
PALATIVE CARE: FAMILY REPORTED PT HAVING ANXIETY AND FEAR ABOUT DYING. CALLED PALATIVE CARE NOTIFIED OF PTS FEELINGS AND REQUESTED THEY COME TALK WITH HIM.
--- NOTE | 2019-03-24 18:05 | NUR ---
SHIFT SUMMARY: PT CHANGED TO HIGH FLOW NC AND TOLLERATING WELL. NO FEVER. CALL LIGHT IN REACH.
--- NOTE | 2019-03-24 19:00 | NUR ---
ASSUMED CARE NOTE: ASSUMED CARE OF PT @ 1900, RECEVIED REPORT FROM DONALD CHANDRA. PT IS ALERT AND ORIENTEDX3. PT IS ON 10L OF O2 VIA HIGH-FLOW NC, WITH SPO2 ABOVE 90%. PT DENIES SOB AT THIS TIME. PT STATES HE IS ANXIOUS AND IS HAVING RACING THOUGHTS. PT IS IN NSR WITH HR IN THE 80'S. PT DENIES NAUSEA AND VOMITING. PT HAS A SLIGHT TREMOR TO HANDS. ATTENDS CHANGED AND IN PLACE. WILL CONTINUE TO MONITOR PT T/O SHIFT.
--- NOTE | 2019-03-24 19:00 | NUR ---
Clinical Visit: Called to pt's room by nursing staff. Concerns about pt's mental and emotional wellbeing is voiced to staff by the pt's sister, who has now left for the night. Yesy, nurse, reports that the pt has expressed fear and anxiety over and dying. Spoke to pt. He is answering questions, but giving short answers and doesn't seem to want to talk at this time. This interaction is different than this science writer's other visits with the pt where he was open to discussion, laughing, and joking. He states that he is "feeling fine," having pain, but has just gotten medications for pain. Pain at this time is 8/10 - highest pain has been 9/10 and medication brings his pain down to 6/10. Pt reports that this is adequate pain control for him and he is comfortable at this level. Inquired about the pt's anxiety level. He is reporting extreme anxiety, racing thoughts and intrusive, disturbing thoughts. He reports that the thoughts are around his declining health and fears of dying. He does not want to discuss this further at this time. He is declining home care provider, states his sister is a fitting supervisor and is caring for his spiritual needs. He again on this visit is requesting Klonopin. He states that he has used this medication in the past to help control his anxiety. He is not sleeping or resting well. Denies headaches, ringing in the ears. Denies dizziness. Does report weakness. Discussed with nurses, Yesy and Kristina. fast food shift lead nurse to request medication from night custodian hospitalist. Updated on pt's declining home care provider at this time. Palliative care to remain following pt.
--- NOTE | 2019-03-24 19:17 | NUR ---
ANXIETY: PT CONFIRMED ANXIETY /C CONFIRMED RACING THOUGHTS. TALKED TO HOSPITALIST RAJIV AND SHE IS PUTTING IN NEW MEDICATION ORDERS.
--- NOTE | 2019-03-24 21:00 | NUR ---
UPDATE: PT PLACED BACK ON BIPAP WITH SETTINGS @ 16/10 FIO2 OF 55%, DUE TO DYSPNEA WITH ACTIVITY. AFTER 10 MINTUES PT WAS ABLE TO FULLY RECOVER, HOWEVER, FIO2 WAS INCREASED TO 60%, SPO2 OF 91-92 %
--- NOTE | 2019-03-24 21:18 | NUR ---
CHANGE IN MENTAL STATUS. PT IS CONFUSED. IS NOW HAVING VISUAL AND AUDITORY HALLUCINATIONS. HE STATES " WHY ARE ALL THESE COUPLES HERE TALKING TO EACH OTHER" HE ALSO POINTED TO THE TV STATING " THAT [facility] GAVE ME MEDS". PT IS PULLING AT LINES AND ATTEMPTING TO TAKE OFF BIPAP MASK. CIWA OF 20.
--- NOTE | 2019-03-24 21:30 | NUR ---
UPDATE: CALLED , ORDERS GIVEN TO START PRECEDEX.
[2019-03-24 23:45] LABS: PCO2 Arterial 93.5 mmHg (35-45); PO2 Arterial 75.9 mmHg (80-100); pH Blood Arterial 7.25 (7.35-7.45)
--- NOTE | 2019-03-24 23:57 | NUR ---
CALLED DR. LAWRENCE DUE TO CRITICAL ABG RESULTS. ORDERS GIVEN TO KEEP PT ON BIPAP, EXCEPT FOR ORAL CARE. ALSO TO REPEAT ABG IN THE AM. WILL CONTINUE TO MONITOR PT. BIPAP SETTINGS CHANGED TO 16/10 WITH A RATE OF 20, FiO2 OF 60% SPO2 OF 94%, RR 21.
[2019-03-25 03:41] LABS: BASOPHILS ABSOLUTE AUTO 0.02 K/mm3 (0.00-0.23); BASOPHILS PERCENT AUTO 0 % (0-2); EOSINOPHILS PERCENT AUTO 0 % (0-6); Hematocrit 46.6 % (37.0-53.0); Hemoglobin 13.6 g/dL (13.5-17.5); IMMATURE GRAN ABSOLUTE AUTO 0.03 K/mm3 (0.00-0.10); IMMATURE GRAN PERCENT AUTO 0 % (0-1); LYMPHOCYTES ABSOLUTE AUTO 0.17 K/mm3 (0.84-5.20); LYMPHOCYTES PERCENT AUTO 2 % (21-46); MONOCYTES ABSOLUTE AUTO 0.38 K/mm3 (0.16-1.47); MONOCYTES PERCENT AUTO 4 % (4-13); Mean Corpuscular HGB 31.1 pg (26.0-34.0); Mean Corpuscular HGB Conc 29.2 g/dL (31.5-36.5); Mean Corpuscular Volume 107 fL (80-100); Mean Platelet Volume 11.8 fL (9.1-12.4); NEUTROPHILS ABSOLUTE AUTO 9.96 K/mm3 (1.96-9.15); NEUTROPHILS PERCENT AUTO 94 % (41-73); Platelet Count 77 K/mm3 (150-400); RDW Coefficient Variation 14.3 % (11.7-14.2); RDW Standard Deviation 56.5 fL (35.1-46.3); Red Blood Cell Count 4.37 M/mm3 (4.30-5.90); White Blood Cell Count 10.56 K/mm3 (4.00-11.30)
[2019-03-25 04:07] LABS: Magnesium, Blood 2.3 mg/dL (1.6-2.4)
[2019-03-25 04:09] LABS: Anion Gap 1 mmol/L (6-16); Blood Urea Nitrogen 29 mg/dL (8-24); Bun/Creatinine Ratio 51.2 (12.0-20.0); CO2, Blood 36 mmol/L (21-32); Chloride, Blood 96 mmol/L (98-108); Creatinine, Blood 0.57 mg/dL (0.60-1.20); Glomerular Filtration Rate >60 (60-); Glucose, Blood 179 mg/dL (70-99); Phosphorus, Blood 2.7 mg/dL (2.5-4.9); Potassium, Blood 5.6 mmol/L (3.5-5.5); Sodium, Blood 133 mmol/L (136-145)
[2019-03-25 04:42] LABS: PCO2 Arterial 90.2 mmHg (35-45); PO2 Arterial 91.7 mmHg (80-100); pH Blood Arterial 7.26 (7.35-7.45)
--- NOTE | 2019-03-25 04:46 | NUR ---
CALLED MELINDA FOR CRITICAL VALUE ON ABG, NO NEW ORDERS GIVEN. RT CHANGED BIPAP SETTINGS @ 01/12
--- NOTE | 2019-03-25 06:22 | NUR ---
SHIFT SUMMARY : SEE PREVIOUS NOTES. PT CONTINUES TO BE CONFUSED. PT IS ABLE TO RESPOND TO PAINFUL AND VERBAL STIMULI. PT IS SLOW TO RESPOND. HE BECOMES AGITATED AND BEGINS TO PULL AT LINES/CORDS AND BIPAP. BIPAP SETTINGS CHANGED TO 18/10 WITH RATE OF 20, FiO2 OF 60%, SPO2 OF 94. BIPAP PRESSURES WERE CHANGED DUE TO HIGH CO2 ON RECENT ABG. PT WAS PLACED ON PRECEDEX, DUE TO INCREASED AGITAION AND FOR BIPAP COMPLIANCE. PRECEDEX IS CURRENTLY AT 0.2MCCG/KG/HR FROM 0.4MCG/KG.HR DUE TO LOW SBP. PT HAS BEEN INCONTINENT, ATTENDS IN PLACE. WILL CONTINUE TO MONITOR PT UNTIL REPORT IS GIVEN TO ONCOMING SHIFT
--- NOTE | 2019-03-25 08:30 | NUR ---
ASSUMED CARE: REPORT RECEIVED FROM RAMONITA Murdock RN. ASSUMED CARE OF THIS PT AT APPROX 0700. ON ASSESSMENT, THE PT IS AWAKE, A&O TO SELF, FOLLOWING DIRECTION, LOCATION & TIME. HE STS HAVING CHRONIC BACK PAIN & REQUESTS PRN MEDS. HE REMEMBERS BEING CONFUSED & AGITATED LAST NIGHT BUT HE IS CURRENTLY CALM & WEARING BIPAP W/O DIFFICULTY. LS ARE DIM T/O, BIPAP SETTINGS 18/10 & 60% FIO2 W/ O2 SATS > 90%. MONITOR SHOWS SR W/ HR 70s, BP STABLE. PEG TUBE W/ TUBE FEEDS INFUSING AT GOAL RATE & NO RESIDUALS NOTED. ATTENDS IN PLACE FOR INTERMITTENT INCONTINENCE. NO CHANGES TO SKIN/ WOUNDS AT THIS TIME, SEE CHART FOR PHOTOS. WILL CONTINUE TO MONITOR & UPDATE NEEDED.
[2019-03-25 11:33] LABS: Vancomycin, Trough 13.5 ug/mL (5.0-10.0)
--- NOTE | 2019-03-25 12:00 | NUR ---
DR LAWRENCE: PROVIDER AT BEDSIDE TO EVAL PT. CONTINUE POC. ORDERS PLACED FOR AM LABS & CXR, CONTINUE BIPAP THERAPY & PRECEDEX DRIP FOR ANXIETY/ AGITATION. NO OTHER CHANGES AT THIS TIME.
--- NOTE | 2019-03-25 16:19 | NUR ---
REFUSING CARE: PT HAS BEEN REFUSING ATTENDS CHANGES THIS SHIFT. STATING HE HAS NOT VOIDED & FEELS NO NEED TO VOID WHEN ASKED IF NEEDING TO USE URINAL. WILL NOT ALLOW THIS RN TO CHECK ATTENDS. WILL CONTINUE TO ATTEMPT PROVIDING THIS CARE.
--- NOTE | 2019-03-25 18:01 | NUR ---
SHIFT SUMMARY: NO ACUTE CHANGES SINCE PRIOR UPDATES. THIS RN HAS BEEN ABLE TO PROVIDE CARE TO PT & CHANGE DRESSINGS TO COCCYX/ BUTTOCKS WOUNDS. CONDOM CATH ALSO APPLIED PT HAS BEEN INCONTINENT THIS SHIFT. BIPAP SETTINGS UNCHANGED, 18/10 & 60% FIO2. MONITOR SHOWS SR W/ HR 70s, BP STABLE. PEG TUBE W/ CONTINUOUS TUBE FEEDS AT GOAL RATE, 0 RESIDUALS. THIS RN HAS DISCUSSED W/ PT THE POSSIBILITY OF INTUBATION. IT IS EXPLAINED TO PT THAT WITH HIS CURRENT CODE STATUS, IF HIS RESPIRATORY CONDITION DETERIORATES FURTHER, HE MAY REQUIRE INTUBATION & VENTILATION. THE PT STS THAT HE MAY NOT WANT THIS BUT WOULD LIKE MORE TIME TO CONSIDER HIS OPTIONS. PALLIATIVE CARE CONSULT PLACED ON 03/08/19 REGARDING ADVANCED CARE PLANNING, MESSAGE LEFT ON PALLIATIVE CARE OFFICE VOICEMAIL REGARDING THIS TOPIC. WILL CONTINUE TO MONITOR & REPORT OFF TO ONCOMING RN.
--- NOTE | 2019-03-25 19:00 | NUR ---
ASSUMED CARE NOTE: ASSUMED CARE OF PT @ 1900, RECEVIED REPORT FROM CRESENCIO CHANDRA. UPON ENTERING ROOM PT ON BIPAP WITH SETTINGS @ 18/10 WITH FiO2 OF 96%. PT IS ALERT AND ORIENTEDX3, HE IS ABLE TO FOLLOW DIRECTIONS AND ANSWER QUESTIONS APPROPRIATLEY. PT STATES HE IS HAVING ANXIETY, PRECEDEX IS CURRENTLY RUNNING @ 0.3MCG/KG/HR. NSR WITH HR IN THE 80'S. HYPOACTIVE BOWEL TONES HEARD IN ALL FOUR QUADRANTS. CONDOM CATH IN PLACE. PT C/O PAIN TO LOWER BACK AND BILAT HIPS, WILL MEDICATED PER EMAR. PT REMINDED THAT REPOSITIONING WILL OCCUR EVERY TWO HOURS TO PREVENT FURTHER SKIN BREAKDOWN. BED AT LOWEST LEVEL, CALL LIGHT WITHIN REACH. WILL MONITOR PT T/O SHIFT
--- NOTE | 2019-03-26 02:24 | NUR ---
UPDATE: PT HAS NOT BEEN ABLE TO SLEEP. PT DENIES ANY ANXIETY OR SOB AT THIS TIME. PT HAS BEEN REPOSITIONED Q2H. BIPAP SETTINGS REMAIN THE SAME.
[2019-03-26 03:23] LABS: BASOPHILS ABSOLUTE AUTO 0.01 K/mm3 (0.00-0.23); BASOPHILS PERCENT AUTO 0 % (0-2); EOSINOPHILS PERCENT AUTO 0 % (0-6); Hemoglobin 13.9 g/dL (13.5-17.5); IMMATURE GRAN ABSOLUTE AUTO 0.06 K/mm3 (0.00-0.10); IMMATURE GRAN PERCENT AUTO 1 % (0-1); LYMPHOCYTES PERCENT AUTO 2 % (21-46); MONOCYTES ABSOLUTE AUTO 0.43 K/mm3 (0.16-1.47); MONOCYTES PERCENT AUTO 4 % (4-13); Mean Corpuscular HGB 31.2 pg (26.0-34.0); Mean Corpuscular HGB Conc 29.6 g/dL (31.5-36.5); Mean Corpuscular Volume 106 fL (80-100); Mean Platelet Volume 11.2 fL (9.1-12.4); NEUTROPHILS ABSOLUTE AUTO 10.72 K/mm3 (1.96-9.15); NEUTROPHILS PERCENT AUTO 94 % (41-73); Platelet Count 77 K/mm3 (150-400); RDW Coefficient Variation 14.4 % (11.7-14.2); RDW Standard Deviation 56.2 fL (35.1-46.3); Red Blood Cell Count 4.45 M/mm3 (4.30-5.90); White Blood Cell Count 11.42 K/mm3 (4.00-11.30)
[2019-03-26 03:37] LABS: Anion Gap 3 mmol/L (6-16); Blood Urea Nitrogen 31 mg/dL (8-24); Bun/Creatinine Ratio 52.6 (12.0-20.0); CO2, Blood 36 mmol/L (21-32); Calcium, Blood 9.3 mg/dL (8.5-10.1); Chloride, Blood 94 mmol/L (98-108); Creatinine, Blood 0.59 mg/dL (0.60-1.20); Glomerular Filtration Rate >60 (60-); Glucose, Blood 160 mg/dL (70-99); Magnesium, Blood 2.2 mg/dL (1.6-2.4); Potassium, Blood 5.7 mmol/L (3.5-5.5); Sodium, Blood 133 mmol/L (136-145)
--- NOTE | 2019-03-26 05:05 | NUR ---
SHIFT SUMMARY: PT REMAINED ON BIPAP DURING THE ENTIRE SHIFT WITH SMALL BREAKS FOR ORAL CARE. BIPAP SETTINGS ARE STILL 18/20 WITH FiO2 OF 60%. PT REMAINS ON PRECEDEX 0.3MCG/KG/MIN. PT IS ALERT AND ORIENTED AND ABLE TO ANSWER QUESTIONS APPROPRIATELY. VSS. NSR WITH HR IN THE 70'S. TUBE FEEDING RUNNING AT GOAL 40ML/HR , NO RESIDUALS NOTED, TUBING CHANGED @ 0500. HYPOACTIVE BOWEL TONES HEARD IN ALL FOUR QUADRANTS. ABDOMEN FIRM. PT DENIES NAUSEA/VOMITING. PT HAS NOT HAD A BM SINCE 03/20, DESPITE BOWEL CARE, WILL PASS ON IN REPORT. CONDOM CATH STILL IN PLACE DRAINING HEATHER URINE. WILL CONTINUE TO MONITOR PT UNTIL REPORT IS GIVEN TO ONCOMING SHIFT.
[2019-03-26 05:10] LABS: PCO2 Arterial 73.2 mmHg (35-45); pH Blood Arterial 7.36 (7.35-7.45)
--- NOTE | 2019-03-26 07:24 | NUR ---
ASSUMED CARE: REPORT RECEIVED FROM RAMONITA Murdock RN. ASSUMED CARE OF THIS PT AT APPROX 0700. ON ASSESSMENT, THE PT IS RESTING QUIETLY BUT AWAKENS EASILY TO VERBAL STIMULUS. HE IS A&O AT THIS TIME, WEARING BIPAP COMPLIANTLY. LS ARE COARSE & DIM T/O, BIPAP SETTINGS: 18/10 & 60% W/ B/U RATE 20 BPM. O2 SATS > 90% ON AVG. MONITOR SHOWS SR W/ HR 70s, BP STABLE. PEG TUBE PATENT & INFUSING TUBE FEEDS AT GOAL RATE. CONDOM CATHETER IN PLACE DRAINING YELLOW URINE EFFECTIVELY. WILL CONTINUE TO MONITOR & UPDATE NEEDED.
--- NOTE | 2019-03-26 08:47 | NUR ---
DR LUCAS: PROVIDER AT BEDSIDE TO EVAL PT. ORDERS PLACED FOR ELECTROLYTE REPLETION & CORRECTION. F/U LABS PLACED FOR 1000, APPROX 1HR AFTER INSULIN & D50 TO BE GIVEN FOR HIGH POTASSIUM LEVEL. NO OTHER CHANGES AT THIS TIME.
[2019-03-26 10:46] LABS: Vancomycin, Trough 16.3 ug/mL (5.0-10.0)
--- NOTE | 2019-03-26 11:30 | NUR ---
DR IRVING: PROVIDER AT BEDSIDE TO EVAL PT. CONTINUE CURRENT POC. AIRVO OKAY IF PT TOLERATES. LAB ORDERS PLACED FOR AM.
--- NOTE | 2019-03-26 11:39 | NUR ---
Spoke with bedside CORAZON Mayfiedl prior to Pt visit. Tran reports Pt's respiratory condition is not improving and is currently on BIPAP. Pt may benefit from discussion regarding code status. Pt is resting in bed and reports the BIPAP is helping his SOB. Engaged in therapeutic discussion regarding code status. Educated on life sustaining measures including risk factors and implications. Pt reports he needs a little more time to think about it and wants to discuss it with his sister when she gets off work. Pt reports this conversation has increased his anxiety and reports 7/7 anxiety. Pt still fearful of his condition. Educated on imagery technique to help manage anxiety. Reported Pt's anxiety to bedside CORAZON Mayfield. Palliative Care will F/U with Pt when sister is visiting.
--- NOTE | 2019-03-26 16:34 | NUR ---
AIRVO: BIPAP REMOVED & PT PLACED ON AIRVO W/ SETTINGS: 60 L/MIN & 50% FIO2. PT TOLERATING WELL W/ NO DYSPNEA NOTED & HE STS FEELING "MUCH BETTER" W/ BIPAP OFF. PT's HR ALSO IMPROVED SINCE INITIATING AIRVO, DECREASED FROM 120s TO 90s.
--- NOTE | 2019-03-26 16:51 | NUR ---
Routine spiritual care note: Mr. Peralta is soft-spoken with a gentle demeanor. He denied concerns, but wanted prayer. He wants to be healed completely. He was appreciative of prayer and spiritual pre parole counseling aide. We have an easy rapport. He appears anxious, but denies any emotional discomfort/stress. I will remain available.
--- NOTE | 2019-03-26 17:28 | NUR ---
SHIFT SUMMARY: NO ACUTE CHANGES SINCE PRIOR UPDATES. PT's SISTER IS AT BEDSIDE & SHITAL Hui, PALLIATIVE CARE RN ALSO AT BEDSIDE TO DISCUSS POLST & ADVANCE CARE PLANNING. PT CONTINUES ON AIRVO W/ SETTINGS: 60L/MIN & 50% FIO2. LS COARSE T/O SINCE DIURESIS, BUT SUBSTANTIALLY LESS DIM. MONITOR SHOWS SR-ST W/ HR 90s AVG, UP TO 120s W/ INCREASED ANXIETY. PRECEDEX DRIP CONTINUES TITRATED IN FLOWSHEET. PEG TUBE W/ CONTINUOUS FEEDS & 0 RESIDUALS. CONDOM CATH PATENT/ DRAINING, PT DIURESED WELL THIS SHIFT. WILL CONTINUE TO MONITOR & REPORT OFF TO ONCOMING RN.
--- NOTE | 2019-03-26 18:25 | NUR ---
Pt resting in bed with sister Rina at bedside. Engaged in therapeutic discussion regarding code status, POLST, and Advanced Directives. Educated on life sustaining measures including risk factors and implications. V/U made by Pt and sister. Pt reports he will discuss this further with his sister before making a decision. Sister requests AD for Pt to consider completing. Provided AD and instructed on each section to complete. No other concerns reported at this time. Palliative Care will remain available.
--- NOTE | 2019-03-26 19:00 | NUR ---
ASSUMED CARE NOTE: ASSUMED CARE OF PT @ 1900, RECEVIED REPORT FROM CRESENCIO CHANDRA. PT IS A/OX4, ABLE TO RECALL RECENT AND REMOTE EVENTS. PT IS ON AIRVO WITH SETTINGS @ 60L, FiO2 55%, SPO2 ABOVE 90%. HR IN THE 130'S, PT STATES HE IS HAVING ANXIEY. PRECEDEX INCREASED TO 0.3MCG/KG/HR. PT DENIES ANY SOB AT THIS TIME. TUBE FEEDING RUNNING @ GOAL 40ML/HR, NO RESIDUALS NOTED. LUNG SOUNDS COARSE T/O. BOWEL TONES HEARD IN ALL FOUR QUADRANTS. CONDOM CATH IN PLACE, DRAINING CLEAR YELLOW URINE. WILL CONTINUE TO MONITOR PT T/O SHIFT
--- NOTE | 2019-03-26 22:23 | NUR ---
UPDATE: PT HAD AN EXTRA LARGE BOWEL MOVEMENT, PT WAS GIVEN A PARTIAL BEDBATH AND LINENS WERE CHANGED. WOUNDS WERE CLEANED WITH WOUND CLEANSER AND NEW DRESSINGS WERE PLACED. HR HAS COME BACK DOWN INTO THE 80'S, PT STATES HE IS NO LONGER ANXIOUS.
--- NOTE | 2019-03-27 02:11 | NUR ---
UPDATE: PT C/O NAUSEA AND INDIGESTION, PT WAS GIVEN ZOFRAN PER EMAR. NO RESIDUALS NOTED WITH TUBE FEEDING. WILL CONTINUE TO MONITOR.
[2019-03-27 04:00] LABS: BASOPHILS ABSOLUTE AUTO 0.01 K/mm3 (0.00-0.23); BASOPHILS PERCENT AUTO 0 % (0-2); EOSINOPHILS PERCENT AUTO 0 % (0-6); Hematocrit 45.2 % (37.0-53.0); IMMATURE GRAN ABSOLUTE AUTO 0.05 K/mm3 (0.00-0.10); IMMATURE GRAN PERCENT AUTO 1 % (0-1); LYMPHOCYTES ABSOLUTE AUTO 0.24 K/mm3 (0.84-5.20); LYMPHOCYTES PERCENT AUTO 3 % (21-46); MONOCYTES ABSOLUTE AUTO 0.42 K/mm3 (0.16-1.47); MONOCYTES PERCENT AUTO 4 % (4-13); Mean Corpuscular HGB 31.3 pg (26.0-34.0); Mean Platelet Volume 11.6 fL (9.1-12.4); NEUTROPHILS ABSOLUTE AUTO 9.01 K/mm3 (1.96-9.15); NEUTROPHILS PERCENT AUTO 93 % (41-73); Platelet Count 83 K/mm3 (150-400); RDW Coefficient Variation 14.5 % (11.7-14.2); RDW Standard Deviation 53.7 fL (35.1-46.3); Red Blood Cell Count 4.47 M/mm3 (4.30-5.90); White Blood Cell Count 9.73 K/mm3 (4.00-11.30)
[2019-03-27 04:03] LABS: Mean Corpuscular Volume 101 fL (80-100)
[2019-03-27 04:14] LABS: Anion Gap 3 mmol/L (6-16); Blood Urea Nitrogen 31 mg/dL (8-24); Bun/Creatinine Ratio 43.8 (12.0-20.0); CO2, Blood 38 mmol/L (21-32); Calcium, Blood 9.1 mg/dL (8.5-10.1); Chloride, Blood 93 mmol/L (98-108); Creatinine, Blood 0.71 mg/dL (0.60-1.20); Glomerular Filtration Rate >60 (60-); Glucose, Blood 121 mg/dL (70-99); Phosphorus, Blood 2.4 mg/dL (2.5-4.9); Potassium, Blood 5.1 mmol/L (3.5-5.5); Sodium, Blood 134 mmol/L (136-145)
--- NOTE | 2019-03-27 04:25 | NUR ---
TUBE FEEDING FORMULA THERE WAS NO IsoFormula 1.5 TUBE FEEDING FORMULA FOUND IN THE UNIT/FACILITY. PEG TUBE WAS FLUSHED WITH 60MLS OF WATER. WILL HAVE DAY SHIFT NURSE ADDRESS ISSUE WITH DIETITIAN IN THE AM.
--- NOTE | 2019-03-27 05:26 | NUR ---
SHIFT SUMMARY: NO SIGNIFICANT CHANGES THIS SHIFT. PT REMAINS A/OX4. PT CONTINUES TO BE ON AIRVO WITH SETTINGS AT 60L, FiO2 60% WITH SPO2 @ 93%, PT DENIES ANY SOB AT THIS TIME. PT HAS BEEN IN NSR WITH HR BETWEEN 80-90. PT C/O HAVING NAUSEA AND INDIGESTION, PT STATED THAT ZOFRAN ALLEVIATED PAIN. PT IS HAVING DISCOMFORT WITH THE BED, HE STATES THAT THE BED IS THE REASON HE CANNOT SLEEP. PT REFUSED ADD ON FOAM TO BED. PT HAS BEEN REPOSITIONED Q2H. CONDOM CATH IN PLACE DRAINING YELLOW CLEAR URINE
--- NOTE | 2019-03-27 06:04 | NUR ---
TUBE FEEDING RESTARTED. FORMULA FOUND IN DIETITIAN OFFICE. CHANGED TUBING AND RESTARTED, TUBE FEED RUNNING @ GOAL 40MLS/HR.
--- NOTE | 2019-03-27 10:48 | NUR ---
HR 130-140 SUSTAINED, BP DROPPED TO 94/56. PT ASYMPTOMATIC, RESTING. CALLED DR. COFFMAN TO EVALUATE. PROVIDER CAME TO BEDSIDE, PERFORMED CAROTID MASSAGE FOR A SHORT TIME. HR DECREASED TO 87 SINUS RHYTHM, BP INCREASED TO 113/65. PT REMAINS COMFORTABLE.
--- NOTE | 2019-03-27 12:12 | NUR ---
VANC STARTED PER EMAR. PT HAD MEDIUM SOFT STOOL. PERICARE PROVIDED. NEW ATTENDS AND PADS PLACED. NEW DRESSING TO ULCER ON BUTTOCKS PLACED. PT DENIES PAIN.
--- NOTE | 2019-03-27 18:01 | NUR ---
SHIFT SUMMARY: PT STATED HE'S FEELING BETTER TODAY. MORE PRODUCTIVE COUGH, SPUTUM SPECIMEN SENT. DIDN'T SLEEP WELL LAST NIGHT SO MORE FATIGUED TODAY. PARTICIPATED WITH PT BUT ONLY ABLE TO DANGLE. C/O PAIN IN BACK AND HIPS, MANAGED WELL WITH CURRENT REGIMEN. PHOS REPLACED WITH 60 MM. LUNGS SOUNDS IMPROVED THROUGHOUT THE DAY; AIRVO AT 60 L/MIN AND 58% FIO2, O2 SAT > 90%. TF CHANGED TO CYCLIC STARTING TONIGHT. GOOD URINE OUTPUT. PLAN IS POSSIBLE CHANGE TO PCU STATUS TOMORROW.
--- NOTE | 2019-03-27 19:00 | NUR ---
ASSUMED CARE ASSUMED CARE OF PATIENT. AWAKE AND ALERT. ORIENTED X 3. COOPERATIVE WITH CARE. ASSISTS WITH REPOSITIONING. CONTINUES WITH C/O CHRONIC BACK AND HIP PAIN- WILL MEDICATED NEEDED PER ORDER. REMAINS ON AIRVO 60LPM/60% FIO2. RESPIRATIONS EVEN AND UNLABORED AT THIS TIME. OCCASIONAL COUGH PRODUCTIVE OF THICK ELI SPUTUTM PER PATIENT. DENIES C/O SOB OR COUGH AT THIS TIME. MONITOR SHOWS NSR, RATE 80s. BP STABLE. PEG TUBE CLAMPED AT THIS TIME. SITE WNL. CONDOM CATHETER IN PLACE. NS TKO. SEE SHIFT ASSESSMENT FOR FULL ASSESSMENT.
--- NOTE | 2019-03-28 06:14 | NUR ---
SHIFT SUMMARY NO ACUTE CHANGES DURING NOC. SLEPT INTERMITTENTLY. ROUSES EASILY TO STIMULI. ORIENTED AND COOPERATIVE. C/O BACK/HIPS PAIN 10/24- MEDICATED WITH NORCO PT X 3 DOSES DURING SHIFT WITH ADEQUATE RELIEF. VSS DURING NOC. NSR. AFEBRILE. REMAINS ON AIRVO 60L, FIO2 BETWEEN 50-60%. FIO2 IS NOW AT 55%. RESPIRATIONS EVEN AND UNLABORED. INCONTINENT OF URINE- CONDOM CATHETER IN PLACE. PEG TUBE PATENT, SITE CLEAR. ISOSOURCE 1.5 STARTED AT 80CC/HR PER ORDER. 30CC H20 Q4H. WILL REPORT TO DAY SHIFT RN WHEN AVAILABLE.
[2019-03-28 08:10] LABS: BASOPHILS ABSOLUTE AUTO 0.01 K/mm3 (0.00-0.23); BASOPHILS PERCENT AUTO 0 % (0-2); EOSINOPHILS PERCENT AUTO 0 % (0-6); Hematocrit 48.2 % (37.0-53.0); Hemoglobin 14.7 g/dL (13.5-17.5); IMMATURE GRAN ABSOLUTE AUTO 0.03 K/mm3 (0.00-0.10); IMMATURE GRAN PERCENT AUTO 0 % (0-1); LYMPHOCYTES ABSOLUTE AUTO 0.37 K/mm3 (0.84-5.20); LYMPHOCYTES PERCENT AUTO 4 % (21-46); MONOCYTES ABSOLUTE AUTO 0.26 K/mm3 (0.16-1.47); MONOCYTES PERCENT AUTO 3 % (4-13); Mean Corpuscular HGB 31.2 pg (26.0-34.0); Mean Corpuscular HGB Conc 30.5 g/dL (31.5-36.5); Mean Corpuscular Volume 102 fL (80-100); Mean Platelet Volume 11.4 fL (9.1-12.4); NEUTROPHILS ABSOLUTE AUTO 8.01 K/mm3 (1.96-9.15); NEUTROPHILS PERCENT AUTO 92 % (41-73); Platelet Count 93 K/mm3 (150-400); RDW Coefficient Variation 14.4 % (11.7-14.2); RDW Standard Deviation 54.5 fL (35.1-46.3); Red Blood Cell Count 4.71 M/mm3 (4.30-5.90); White Blood Cell Count 8.68 K/mm3 (4.00-11.30)
[2019-03-28 08:25] LABS: Anion Gap 2 mmol/L (6-16); Blood Urea Nitrogen 27 mg/dL (8-24); Bun/Creatinine Ratio 36.7 (12.0-20.0); CO2, Blood 36 mmol/L (21-32); Calcium, Blood 8.5 mg/dL (8.5-10.1); Chloride, Blood 96 mmol/L (98-108); Creatinine, Blood 0.74 mg/dL (0.60-1.20); Glomerular Filtration Rate >60 (60-); Glucose, Blood 172 mg/dL (70-99); Phosphorus, Blood 2.8 mg/dL (2.5-4.9); Potassium, Blood 4.8 mmol/L (3.5-5.5); Sodium, Blood 134 mmol/L (136-145)
--- NOTE | 2019-03-28 08:50 | NUR ---
ASSUMED CARE OF PT AT 0700. REPORT FROM PORTILLO CHANDRA. PT RESTING IN BED. AIRVO IN PLACE. CURRENTLY AT 65%, 60L. TITRATING FOR O2 >90%. LUNGS DIMINISHED IN BASES, INTERMITTANT COUGH, PT REPORTS ELI SPUTUM. SPEAKING IN FULL SENTANCES. PT P/W/D. C/O BILATERAL HIP PAIN. WILL MEDICATE ORDERED FOR PAIN. PEG TUBE IN PLACE, CYCLIC FEEDINGS INFUSING AT 80 ML/HR c q4 30 ML FLUSHES. RESIDUALS 10ML THIS AM. ABD FIRM, DISTENDED. SLIGHT PAIN c PALPATION, PT STATES THIS NORMAL. GENERALIZED WEAKNESS. SKIN FRAGILE, ABRASION TO NOSE, DRESSINGS TO HIPS BILATERALLY AND COCCYX. DR LUCAS AT BEDSIDE. VERBAL ORDER TO TRANSFER TO PCU. WILL CONTINUE TO MONITOR.
[2019-03-28 11:33] LABS: Vancomycin, Trough 18.2 ug/mL (5.0-10.0)
--- NOTE | 2019-03-28 15:52 | NUR ---
Clinical Visit: Symptom managment follow up for pt. He is alert, oriented. He reports pain, nurse is at bedside and states that the focus of his pain control is to have more frequent doses of hydrocodone in order to cut back on the use of fentanyl for severe pain. Pt reports anxiety, but states that anxiety has been at a manageable level. No other concerns from patient at this time. He states his shortness of breath is improved - wearing high flow O2. Will remain available.
--- NOTE | 2019-03-28 17:03 | NUR ---
SHIFT SUMMARY PT STATUS CHANGED TO PCU THIS SHIFT. PT REMAINED ON AIRVO ENTIRE SHIFT. TITRATED FIO2 TO O2 SATS >90%, CURRENTLY 60L 65%. LUNGS DIMINISHED IN BASES. PT P/W/D. PRELIM SPUTUM CULTURE POSITIVE FOR MRSA, DROPLET AND CONTACT PRECAUTIONS INITIATED. CYCLIC ISOSOURCE FEEDINGS FROM 0600 TO 1800 TODAY, 80 ML/HR c q4 30 ML FLUSHES. MINIMAL RESIDUALS. NO BM TODAY. PT REFUSED BOWEL PROTOCOL D/T MULTIPLE BMS YESTERDAY. PT UP TO CHAIR TODAY. MINIMAL EFFORT BY PT. PT RELUCTANT TO PARTICIPATE IN CARE, NEEDS ENCOURAGEMENT FOR ADLS AND TURNS. NEW DRESSING TO COCCXY PLACED. REPORT TO ONCOMING NURSE.
--- NOTE | 2019-03-28 18:42 | NUR ---
Prayer at bedside for Timothy. He is pleased with his progress and complimentary of staff.
--- NOTE | 2019-03-28 21:25 | NUR ---
Assumed care Pt sitting in bed, family at bedside. VSS. Alert and oriented. Conversing appropriately with staff. Able to make needs known. Pt repositioned to Supine, pillows tucked to comfort. Sodium Phos infusing into right shoulder, patent. NS TKO infusing into R wrist, patent. Pt denies pain at this time. Breathing even and unlabored on Airvo, diminished lung sounds to bilat bases. Peg tube patent. Medications administered per tube, flushed with 30 mls h2o. No pain with abd palp. Abd firm. Will continue to monitor. no acute concerns at this time. See shift assessment for detailed systems assessment.
[2019-03-29 04:03] LABS: BASOPHILS ABSOLUTE AUTO 0.02 K/mm3 (0.00-0.23); BASOPHILS PERCENT AUTO 0 % (0-2); EOSINOPHILS PERCENT AUTO 0 % (0-6); Hematocrit 47.3 % (37.0-53.0); Hemoglobin 14.3 g/dL (13.5-17.5); IMMATURE GRAN ABSOLUTE AUTO 0.05 K/mm3 (0.00-0.10); IMMATURE GRAN PERCENT AUTO 0 % (0-1); LYMPHOCYTES ABSOLUTE AUTO 0.45 K/mm3 (0.84-5.20); LYMPHOCYTES PERCENT AUTO 4 % (21-46); MONOCYTES PERCENT AUTO 4 % (4-13); Mean Corpuscular HGB 31.1 pg (26.0-34.0); Mean Corpuscular HGB Conc 30.2 g/dL (31.5-36.5); Mean Corpuscular Volume 103 fL (80-100); NEUTROPHILS ABSOLUTE AUTO 10.43 K/mm3 (1.96-9.15); NEUTROPHILS PERCENT AUTO 92 % (41-73); Platelet Count 99 K/mm3 (150-400); RDW Coefficient Variation 14.4 % (11.7-14.2); White Blood Cell Count 11.35 K/mm3 (4.00-11.30)
[2019-03-29 04:20] LABS: Anion Gap 1 mmol/L (6-16); Blood Urea Nitrogen 26 mg/dL (8-24); Bun/Creatinine Ratio 43.6 (12.0-20.0); CO2, Blood 35 mmol/L (21-32); Calcium, Blood 8.3 mg/dL (8.5-10.1); Chloride, Blood 99 mmol/L (98-108); Glomerular Filtration Rate >60 (60-); Glucose, Blood 76 mg/dL (70-99); Potassium, Blood 5.2 mmol/L (3.5-5.5); Sodium, Blood 135 mmol/L (136-145)
--- NOTE | 2019-03-29 06:31 | NUR ---
SHIFT SUMMARY Pt with no acute events overnight. VSS. Breathing even and unlabored on Airvo 60 lpm maintaining o2 saturations 90%. Pt is alert and oriented, no changes to mentation this shift. Pt making needs known with call light. ABX infusing this shift to RW PIV. Isosource 1.5 apple tube feeding from [id number] begun, 80 ml/hr with 30 ml flush h2o q4h per orders. Pt with pain requiring prn pain medication q4 as ordered. Pt repositioned q2, tolerating and compliant with care. Condom cath draining clear yellow urine. No changes noted on heart monitor. Denies chest pain or pressure. Slept approx 4 hours on and off this shift. Will continue to monitor and report off to day RN.
--- NOTE | 2019-03-29 09:38 | NUR ---
ASSUMED CARE OF PT AT 0700. REPORT FROM DESTINY CHANDRA. PT RESTING IN BED. AIRVO IN PLACE, 60L 65% FIO2. DURING MORNING PT HAD INCREASED O2 DEMANDS, TITRATED FIO2 UP TO 90% ON AIRVO, O2 SATS REMAINED MID 80'S. PT ALSO HAD APPROX 45-60 MIN EPISODE OF SINUS TACH, RATE 120-130. PT DENIED INCREASED PAIN, SOB OR OTHER SYMPTOMS DURING THIS TIME. DR LUCAS ORDERED METOPROLOL FOR RATE CONTROL, HELD D/T PT'S RATE DECREASING TO 80'S. DR IRVING AT BEDSIDE. RT TO PLACE PT ON BIPAP, 100% 01/23. O2 SATS INCREASED TO LOW 90'S. LUNGS COARSE THROUGHOUT. NO PRODUCTIVE COUGH. PT SPEAKING IN FULL SENTANCES. BREATHING TREATMENTS AND LASIX 40 MG IVP ORDERED AND GIVEN. CYCLIC TUBE FEEDINGS, 80ML/HR c 30 ML FLUSHES q4 HOURS. RESIDUALS, 40ML THIS AM. CONDOM CATH IN PLACE. WILL CONTINUE TO MONITOR.
--- NOTE | 2019-03-29 14:41 | NUR ---
PATIENT GAVE PERMISSION TO PROVIDE CARE ON 03/29/2019.
--- NOTE | 2019-03-29 17:33 | NUR ---
SHIFT SUMMARY-STATUS CHANGED TO ICU THIS SHIFT PT WORE BIPAP FOR MOST OF SHIFT. TITRATED FIO2 FROM 100%-65% THEN SWITCHED TO AIRVO AT APPROX 1700, 60L 65%. PT DIURESED TODAY. CT COMPLETED, NO PE NOTED PER REPORT. LUNGS REMAIN COARSE. SKIN FRAGILE. ULCER TO COCCYX PROGRESSING IN SIZE. NEW DRESSINGS PLACE, CONTINUED q2 HOUR TURNS. ABRASION TO BRIDGE OF NOSE FROM BIPAP. INCREASED RESIDUALS THIS SHIFT, LAST CHECK 220 ML. CYCLIC FEEDINGS CONTINUED. BED BATH COMPLETED THIS SHIFT. WILL REPORT TO ONCOMING NURSE.
--- NOTE | 2019-03-29 19:15 | NUR ---
[place] of Care: Care assumed at 1900hr. Bedside report received from day shift RN. Patient alert and oriented x4, sitting upright in bed watching TV. C/o pain to hips, lower back (chronic), effectively managed with prn [place]. Denies dyspnea/SOB, appears comfortable, non-labored breathing. O2-92-94% on Airvo NC at 60LPM with 65% FiO2. Condom catheter in place, draining clear yellow urine. EG tube patent and intact, flushed with 30ml H2O without difficulty. PEG tube insertion site shows scant amount of brown crusty drainage, slight redness/pink to skin. Plan to cleanse PEG tube site and replace gauze early this shift. Call light in reach, makes needs known. Will continue to monitor.
[2019-03-30 04:01] LABS: BASOPHILS ABSOLUTE AUTO 0.02 K/mm3 (0.00-0.23); BASOPHILS PERCENT AUTO 0 % (0-2); EOSINOPHILS PERCENT AUTO 0 % (0-6); Hematocrit 49.1 % (37.0-53.0); Hemoglobin 14.8 g/dL (13.5-17.5); IMMATURE GRAN ABSOLUTE AUTO 0.07 K/mm3 (0.00-0.10); IMMATURE GRAN PERCENT AUTO 1 % (0-1); LYMPHOCYTES ABSOLUTE AUTO 0.48 K/mm3 (0.84-5.20); LYMPHOCYTES PERCENT AUTO 3 % (21-46); MONOCYTES ABSOLUTE AUTO 0.25 K/mm3 (0.16-1.47); MONOCYTES PERCENT AUTO 2 % (4-13); Mean Corpuscular HGB Conc 30.1 g/dL (31.5-36.5); Mean Corpuscular Volume 103 fL (80-100); Mean Platelet Volume 10.8 fL (9.1-12.4); NEUTROPHILS ABSOLUTE AUTO 13.43 K/mm3 (1.96-9.15); NEUTROPHILS PERCENT AUTO 94 % (41-73); Platelet Count 106 K/mm3 (150-400); RDW Coefficient Variation 14.2 % (11.7-14.2); RDW Standard Deviation 54.7 fL (35.1-46.3); Red Blood Cell Count 4.77 M/mm3 (4.30-5.90); White Blood Cell Count 14.25 K/mm3 (4.00-11.30)
[2019-03-30 04:18] LABS: Anion Gap 0 mmol/L (6-16); Blood Urea Nitrogen 30 mg/dL (8-24); Bun/Creatinine Ratio 48.9 (12.0-20.0); CO2, Blood 36 mmol/L (21-32); Calcium, Blood 8.7 mg/dL (8.5-10.1); Chloride, Blood 100 mmol/L (98-108); Creatinine, Blood 0.61 mg/dL (0.60-1.20); Glomerular Filtration Rate >60 (60-); Glucose, Blood 86 mg/dL (70-99); Potassium, Blood 5.4 mmol/L (3.5-5.5); Sodium, Blood 136 mmol/L (136-145)
--- NOTE | 2019-03-30 06:14 | NUR ---
Shift Summary: Patient slept well throughout shift. Easily roused to verbal stimuli, remains A/O x4 when awake. C/o pain to back and hips effectively managed with x2 doses of [place]. Continues to deny dyspnea/SOB, O2-88-94% on Airvo NC with 60LPM, 65-70% FiO2. Condom cath remains patent and intact, draining clear yellow urine, 900ml output. Tube feed started this morning via PEG tube per orders, tolerating without difficulty. Dressing to PEG tube insertions site changes, site cleansed this shift, remain C/D/I. Call light in reach, makes needs known. Will continue to monitor until report to day shift RN.
--- NOTE | 2019-03-30 07:34 | NUR ---
ASSUMED CARE: RECEIVED REPORT FROM NOC RN. PT SITTING UP IN BED WITH HUMIDAFIED AIR-VO NC IN PLACE. NO ACUTE DISTRESS NOTED EVEN CHEST RISE AND FALL NOTED. TUBE FEEDING NOTED TO BE RUNNING AT 80 ML/HR. ORDERS REVIEWED. CALL LIGHT IN REACH. BED IN LOWEST POSSITION.
[2019-03-30 11:57] LABS: Vancomycin, Trough 17.9 ug/mL (5.0-10.0)
--- NOTE | 2019-03-30 12:07 | NUR ---
RESPRATORY DISTRESS: PT O2 SATS ARE NOTED TO BE IN THE MID TO LOW 80'S AND NOT COMING UP. PT PLACED ON BIPAP 14/8 100% FIO2. DR DAVISON NOTIFIED
--- NOTE | 2019-03-30 14:19 | NUR ---
UPDATE: DR DAVISON IN TO SEE THE PT. DECREASED SETTINGS ON BIPAP. ORDERED FOR PT TO WORK WITH PT TODAY, THIS RN CALLED PT INES PHILLIPS TO COME BACK AND WORK WITH PT EVEN THOUGH HE IS ON THE BIPAP. PT IS TOLLERATING BIPAP WELL. FIO2 WAS DECREASED DOWN TO 85%. PT CALL LIGHT IS IN REACH. NO ACUTE DISTRESS NOTED AT THIS TIME.
--- NOTE | 2019-03-30 18:03 | NUR ---
SHIFT SUMMARY: PT WAS TRANSFERED TO A BIPAP D/T NOT BEING ABLE TO KEEP HIS O2 SATURATIONS >86% ON THE AIRVO EVEN AFTER INCREASING THE FIO2. PT HAS TOLLERATED THE BIPAP WELL SINCE BEING PLACED BACK ON IT. TUBE FEEDING HAVE CONTINUED, BUT D/T PT HAVING A FEELING OF NAUSEA HELD FEEDINGS FOR APPROX AN HOUR AND MEDICATED. PT HAD 2 BOWEL MOVEMENTS TODAY THE SECOND ONE PT STATES HE THOUGHT HE HAD ONLY PASSED GAS, BUT HAD ACTUALLY HAD A LARGE UNFORMED LOOSE BM. COCCYX DRESSING WAS CHANGED AND CONDOM CATH WAS CHANGED OUT WELL. WILL CONTINUE TO MONITOR. CALL LIGHT IN REACH. BED IN LOWEST POSITION.
--- NOTE | 2019-03-30 19:15 | NUR ---
[place] of Care: Care assumed at 1900hr. Patient alert and oriented x4, sitting upright in bed watching TV. Currently on BiPAP at 12/8/75%, O2-92-94%, denies dyspnea/SOB. Appears calm/comfortable, but c/o mild anxiety r/t BiPAP mask. X1 prn Xanax given with good effective noted. C/o mild pain to lower back and hips, but dose not wish to receive prn medication at this time, repositioning effective to make patient comfortable. Condom cath in place, draining dark yellow urine. PEG tube patent and intact, ordered feeding stopped at shift change, and tube flushed with 30ml H2O. PEG tube insertion site shows slight redness and scant amount of dry brown drainage. Will change PEG tube gauze and cleanse with saline or wound cleanser. Call light in reach, makes needs known. Will continue to monitor.
[2019-03-31 03:25] LABS: BASOPHILS ABSOLUTE AUTO 0.03 K/mm3 (0.00-0.23); BASOPHILS PERCENT AUTO 0 % (0-2); EOSINOPHILS PERCENT AUTO 0 % (0-6); Hematocrit 49.6 % (37.0-53.0); IMMATURE GRAN ABSOLUTE AUTO 0.08 K/mm3 (0.00-0.10); IMMATURE GRAN PERCENT AUTO 1 % (0-1); LYMPHOCYTES PERCENT AUTO 4 % (21-46); MONOCYTES ABSOLUTE AUTO 0.39 K/mm3 (0.16-1.47); MONOCYTES PERCENT AUTO 2 % (4-13); Mean Corpuscular HGB 31.4 pg (26.0-34.0); Mean Corpuscular HGB Conc 30.2 g/dL (31.5-36.5); Mean Corpuscular Volume 104 fL (80-100); Mean Platelet Volume 11.4 fL (9.1-12.4); NEUTROPHILS ABSOLUTE AUTO 15.01 K/mm3 (1.96-9.15); NEUTROPHILS PERCENT AUTO 93 % (41-73); Platelet Count 122 K/mm3 (150-400); RDW Coefficient Variation 14.1 % (11.7-14.2); RDW Standard Deviation 55.1 fL (35.1-46.3); Red Blood Cell Count 4.78 M/mm3 (4.30-5.90); White Blood Cell Count 16.11 K/mm3 (4.00-11.30)
[2019-03-31 03:41] LABS: Alanine Aminotransfer (ALT/SGP 53 U/L (12-78); Albumin, Blood 2.3 g/dL (3.4-5.0); Albumin/Globulin Ratio 0.5 (0.8-1.8); Alk Phos 132 U/L (50-136); Anion Gap 1 mmol/L (6-16); Aspartate Aminotrans (AST/SGOT 11 U/L (12-37); Bilirubin, Total 0.4 mg/dL (0.1-1.0); Blood Urea Nitrogen 33 mg/dL (8-24); Bun/Creatinine Ratio 54.8 (12.0-20.0); CO2, Blood 35 mmol/L (21-32); Calcium, Blood 8.8 mg/dL (8.5-10.1); Chloride, Blood 102 mmol/L (98-108); Globulin, Blood 4.3 g/dL (2.2-4.0); Glomerular Filtration Rate >60 (60-); Glucose, Blood 93 mg/dL (70-99); Magnesium, Blood 2.4 mg/dL (1.6-2.4); Potassium, Blood 5.6 mmol/L (3.5-5.5); Sodium, Blood 138 mmol/L (136-145); Total Protein, Blood 6.6 g/dL (6.4-8.2)
[2019-03-31 04:14] LABS: PCO2 Arterial 66.2 mmHg (35-45); PO2 Arterial 75.9 mmHg (80-100); pH Blood Arterial 7.37 (7.35-7.45)
--- NOTE | 2019-03-31 06:24 | NUR ---
Shift Summary: Patient slept on/off throughout shift. C/o pain to hips/back effectively managed with x2 doses of prn [place]. Patient took off BiPAP mask and placed back on Airvo NC at 60LPM, 90% FiO2 at approx 0000hr. FiO2 then titrated down to 70%. Patient tolerated Airvo without difficulty until approx 0500hr when spO2 decreased to 86-88%, but patient continued to deny dyspnea/SOB. Patient then placed back on BiPAP at 12/8/75%, but spO2 further decreased to 80-84%. Patient continued to deny dyspnea/SOB, but appeared slightly SOB, and increased work of breathing. FiO2 titrated to 100% and RT called to room. RT Tami titrated patient's BiPAP settings to 20/12, FiO2 remained at 100%. Patient's spO2 then slowly increased to 88-92% over approx 30min and now is at 95-96%. FiO2 decreased to 90%. Call placed to Dr. Eagle, informed her of changes made to BiPAP settings and patient's condition, no new orders received. Condom catheter replaced early this shift per soiling from stool. X2 large loose brown stool this shift. Peripheral IV's x2 patent and intact. PEG tube remains patent and intact, gauze to insertions site changed this shift. Patient calm and comfortable at this time. Will continue to monitor until report to day shift RN.
--- NOTE | 2019-03-31 07:15 | NUR ---
ASSUMED CARE: RECEIVED BEDSIDE REPORT FROM NOC RN. PT CURRENTLY ON BIPAP RT IN ROOM PRIOR TO REPORT FROM RN AND GAVE REPORT OF BIPAP BEING TURNED DOWN TO 16/10 @ 85% FIO2. SATS REMAINING >90%. WILL CONTINUE TO MONITOR AND ASSESS FURTHER.
--- NOTE | 2019-03-31 07:45 | NUR ---
RECREASED O2 SATS: PT O2 SATS ARE NOTED TO BE DROPPING DOWN BELOW 86%. RT NOTIFIED AND CALLED DR DAVISON TO NOTIFIY OF THE SITUATION. ORDERS TO INCREASE PRESSURES TO 12 AND GIVE ANOTHER DUO NEB TREATMENT. RT NOTIFIED AND ORDERS FOLLOWED THROUGH. X-RAY CALLED FOR STAT X-RAY
--- NOTE | 2019-03-31 08:05 | NUR ---
X-RAY CALLED: [employer]ER CALLED X-RAY TECH AGAIN TO CHECK ON STATUS OF X-RAY, NO ONE AVAILABLE YET. REPORT OF ONE AHEAD OF X-RAY, AND WAITING ON MORE STAFF TO BE IN.
--- NOTE | 2019-03-31 08:08 | NUR ---
UPDATE: SATS ARE CURRENTLY AT 93%
--- NOTE | 2019-03-31 09:21 | NUR ---
UPDATE: CALLED AND LEFT MESSAGE WITH DR BARRY FOR CONTINUED CONSULTATION OF PT. CALLED SISTER PORTILLO PRESSLEY AND LEFT MESSAGE TO CALL WITH TIME WHEN SHE WILL BE IN SO DR DAVISON CAN UPDATE ON PT CONDITION. DISCUSSED WITH RT ON PERCUSSION Q8HR.
--- NOTE | 2019-03-31 11:00 | NUR ---
PLAN OF CARE: DR DAVISON, CRYSTAL Childs AND THIS RN IN THE ROOM WITH THE PT AND HIS SISTER PORTILLO TO DISCUSS PLAN OF CARE. DR DAVISON UPDATED THE PT AND SISTER ON PROGRESSION OF DIAGNOSIS AND PLAN OF CARE OPTIONS. SISTER AND PT TO DISCUSS FURTHER ON CHANGING CODE STATUS AND POSSIBLE COMFORT CARE.
--- NOTE | 2019-03-31 12:12 | NUR ---
DNR/DNI: SISTER HAS LEFT THE ROOM AND REQUESTS FURTHER INFORMATION ON COMFORT CARE AND STATES PT HAS DECIDED TO CHANGE CODE STATUS TO DNR AND DNI. SISTER STATES MORE FAMILY IS COMING LATER. THEY ARE GOING TO CONTINUE TO DISCUSS COMFORT CARE. SHE DOES NOT WANT THE PT TO BE DEVOID OF HOPE AND STATES HE IS IN THE ROOM VERY SCARED AT THIS TIME. NOTIFIED DR DAVISON OF [facility] DECISION TO CHANGE CODE STATUS.
--- NOTE | 2019-03-31 17:04 | NUR ---
SHIFT SUMMARY: INCREASED NEED FOR BIPAP T/O THE DAY, SETTINGS FOR EXPRATORY PRESSURES REMAINED 12 T/O THE DAY FIO2 HAS BEEN ABLE TO BE TITRATED DOWN TO 85% FROM 100% NOTED THIS MORNING. THE PT'S SISTER AND HIM DISCUSSED CODE STATUS AND CAME TO THE DECISION TO BECOME DNR/DNI AND WILL CONTINUE TO DISCUSS THE POSSIBILITY OF COMFORT CARE OVER THE NEXT DAY. WILL LOOK AT POSSIBLY ATTEMPTING TO PLACE PT ON AIRVO AFTER SISTER RETURNS THIS EVENING TO SEE HOW WELL PT TOLLERATES AND TO GIVE HIS NOSE A BREAK FROM THE FACE MASK. ATTEMPTED FULL FACE/ALY MASK FOR BIPAP,BUT DID NOT WORK D/T PTS FACIAL STRUCTURE. WILL CONTINUE TO MONITOR AND REPORT TO ON COMING RN. CALL LIGHT IN REACH.
--- NOTE | 2019-03-31 18:43 | NUR ---
FAMILY & AIRVO: SISTER ARIVED TO THE UNIT WITH ONE OTHER FAMILY MEMBER. AFTER ATTENDS CHANGE AND PT SLOWING HIS BREATHING DOWN FROM A RR IN THE 50'S PT WAS SWITCHED TO AIRVO. PT TOLLERATING WELL AT THIS TIME. CURRENTLY AT 93%
--- NOTE | 2019-03-31 21:00 | NUR ---
[place] of Care: Care assumed at 1900hr. Patient alert and oriented x4, sitting upright in bed watching TV. Denies pain, discomfort , SOB, or dyspnea at this time. Currently on Airvo NC at 60LPM, with 75% FiO2, O2-92-94%. During bedside report, patient's Hr increased from sinus in the 90's to sinus tach in the 130's, systolic BP decreased from low 100's to 80's-90's. Patient remained asymptomatic, denying dyspnea, chest pain or discomfort. Continues to monitor and no interventions required. Patient's Hr slowly decreased back to 80's-90s over approx 20min and BP now wnl. PEG tube patent and intact, intermittent feedings finished at shift change. Will change and cleans PEG tube insertion site early this shift. Condom cath in place, draining dark yellow clear urine. Call light in reach, makes needs known. Will continue to monitor.
[2019-04-01 03:37] LABS: BASOPHILS ABSOLUTE AUTO 0.01 K/mm3 (0.00-0.23); BASOPHILS PERCENT AUTO 0 % (0-2); EOSINOPHILS PERCENT AUTO 0 % (0-6); Hematocrit 45.7 % (37.0-53.0); Hemoglobin 13.7 g/dL (13.5-17.5); IMMATURE GRAN ABSOLUTE AUTO 0.05 K/mm3 (0.00-0.10); IMMATURE GRAN PERCENT AUTO 1 % (0-1); LYMPHOCYTES ABSOLUTE AUTO 0.54 K/mm3 (0.84-5.20); LYMPHOCYTES PERCENT AUTO 6 % (21-46); MONOCYTES ABSOLUTE AUTO 0.28 K/mm3 (0.16-1.47); MONOCYTES PERCENT AUTO 3 % (4-13); Mean Corpuscular Volume 103 fL (80-100); Mean Platelet Volume 11.4 fL (9.1-12.4); NEUTROPHILS ABSOLUTE AUTO 8.12 K/mm3 (1.96-9.15); NEUTROPHILS PERCENT AUTO 90 % (41-73); Platelet Count 94 K/mm3 (150-400); RDW Coefficient Variation 14.4 % (11.7-14.2); RDW Standard Deviation 55.3 fL (35.1-46.3); Red Blood Cell Count 4.42 M/mm3 (4.30-5.90)
[2019-04-01 03:50] LABS: Anion Gap 4 mmol/L (6-16); Blood Urea Nitrogen 29 mg/dL (8-24); Bun/Creatinine Ratio 56.1 (12.0-20.0); CO2, Blood 36 mmol/L (21-32); Calcium, Blood 8.5 mg/dL (8.5-10.1); Chloride, Blood 103 mmol/L (98-108); Creatinine, Blood 0.52 mg/dL (0.60-1.20); Glomerular Filtration Rate >60 (60-); Glucose, Blood 92 mg/dL (70-99); Potassium, Blood 4.1 mmol/L (3.5-5.5); Sodium, Blood 143 mmol/L (136-145)
--- NOTE | 2019-04-01 06:14 | NUR ---
Shift Summary: Patient slept on/off throughout shift. Continues to rouse easily to verbal stimuli. C/o pain with repositioning, but did not requiring any prn pain medications this shift. C/o anxiety x1 this shift, effectively managed with x1 prn Xanax. Remained on Airvo NC throughout shift with 60LPM, 75-92% FiO2, spO2-87-96%. Continues to deny dyspnea/SOB. PEG tube remains patent and intact, infusing TF or medications pushes without difficulty. Condom cath remains in place, draining dark yellow clear urine. Call light in reach, makes needs known. Will continue to monitor until report to day shift RN.
--- NOTE | 2019-04-01 09:51 | NUR ---
CARE ASSUMED REPORT RECEIVED, CARE ASSUMED AT 0700 FROM CORAZON VELA. PT SITTING UP IN BED WATCHING TELEVISION AT CHANGE OF SHIFT. AIRVO IN PLACE. PT REPORTING PAIN 9/10, MILD SHORTNESS OF BREATH AND ANXIETY. DISCUSSED PLAN OF CARE WITH PT AND HE AGREES WITH PAIN MEDICATION TO START WITH. INITIALLY DECLINED REPOSITIONING, BUT ALLOWED FOR REPOSITIONING WHEN APPROACHED LATER. AT THIS TIME, PT RESTING COMFORTABLY AND DECLINES FURTHER NEEDS. HR 100'S-110'S, BP BORDERLINE WITH MAPS APPROX 65, 02 SAT 90'S ON AIRVO, RR 20'S-30'S. SEE SHIFT ASSESSMENT/VITALS FLOWSHEET.
[2019-04-01 11:42] LABS: Vancomycin, Trough 17.3 ug/mL (5.0-10.0)
--- NOTE | 2019-04-01 13:48 | NUR ---
UPDATE PT HAS BEEN QUIET, WATCHING TELEVISION AND TALKING WITH FAMILY MOST OF MORNING AND AFTERNOON. MAKES NEEDS KNOWN REGARDING PAIN/COMFORT MANAGEMENT. THIS AFTERNOON BEDBATH COMPLETED AND PT ABLE TO TURN ON HIS OWN TO ASSIST WITH LINEN CHANGE, AND ABLE TO CLEAN HIMSELF TO SOME EXTENT. CONDOM CATH REMOVED DUE TO SLOUGHING OF SKIN UNDERNEATH. PT AGREEABLE AND STATES HE KNOWS WHEN HE IS GOING TO VOID. CALL LIGHT IN REACH WELL URINAL. PT'S FIO2 DECREASED BY SHAGGY RT TO 75% O2 SAT HIGH 90'S AND RR SLIGHTLY IMPROVED. PT ABLE TO COUGH UP MODERATE AMOUNTS OF SPUTUM AFTER MOVEMENT IN BED. PT REPORTS HE HAS BEEN DOING HIS PHYSICAL THERAPY EXERCISES WRITTEN ON BOARD WHILE WATCHING TELEVISION.
--- NOTE | 2019-04-01 18:12 | NUR ---
SUMMARY SINCE PREVIOUS NOTE, PT HAS BEEN ENCOURAGED TO CONTINUE WITH MOBILIZATION. PT REPORTS DOING PHYSICAL THERAPY EXERCISES MULTIPLE TIMES, HE IS ASSISTING WITH ALL TURNS, AND WE DID ATTEMPT TO HAVE HIM STAND AND GET TO A CHAIR THIS EVENING. PT PROFOUNDLY WEAK AND COULD NOT STAND. VITALS STABLE THROUGHOUT THE SHIFT. FIO2 TITRATED DOWN AND PT TOLERATING WITH 02 SAT IN MID 90'S. RR LOW-MID 20'S. VISITORS IN AND OUT THROUGHOUT DAY. PT MEDICATED FOR PAIN AND ANXIETY WHEN REQUESTED. SEE EMAR, REASSESSMENTS AND FLOWSHEET.
--- NOTE | 2019-04-01 19:20 | NUR ---
REPORT TO CORAZON VELA TO ASSUME CARE
--- NOTE | 2019-04-01 21:22 | NUR ---
[place] of Care: Care assumed at 1900hr. Patient appears slightly drowsy but responding easily to verbal stimuli, oriented x4. C/o pain (chronic) to hips and back, effectively managed with prn [place] x1 dose. Denies dyspnea/SOB, on Airvo NC with 60LPM, 70% FiO2, spO2- 93-95%. At approx 2115hr, patient's spO2 decreased to 84-86%, patient continues to deny dyspnea/SOB. FiO2 increased to 93%, spO2 then slowly increased to 89-91%. Will continue to monitor and decrease FiO2 as tolerated. PEG tube patent and intact, plan to change split gauze dressing early this shift. Condom cath removed on day shift, patient has urinary urgency but makes staff aware of need for urinal. Voided 450ml of dark yellow urine without difficulty. Call light in reach, makes needs known. Will continue to monitor.
[2019-04-02 03:28] LABS: BASOPHILS PERCENT AUTO 0 % (0-2); EOSINOPHILS PERCENT AUTO 0 % (0-6); Hemoglobin 13.6 g/dL (13.5-17.5); IMMATURE GRAN ABSOLUTE AUTO 0.04 K/mm3 (0.00-0.10); IMMATURE GRAN PERCENT AUTO 1 % (0-1); LYMPHOCYTES ABSOLUTE AUTO 0.61 K/mm3 (0.84-5.20); LYMPHOCYTES PERCENT AUTO 8 % (21-46); MONOCYTES ABSOLUTE AUTO 0.27 K/mm3 (0.16-1.47); MONOCYTES PERCENT AUTO 4 % (4-13); Mean Corpuscular HGB 31.5 pg (26.0-34.0); Mean Corpuscular HGB Conc 30.2 g/dL (31.5-36.5); Mean Corpuscular Volume 104 fL (80-100); Mean Platelet Volume 11.3 fL (9.1-12.4); NEUTROPHILS ABSOLUTE AUTO 6.57 K/mm3 (1.96-9.15); NEUTROPHILS PERCENT AUTO 88 % (41-73); Platelet Count 105 K/mm3 (150-400); RDW Coefficient Variation 14.3 % (11.7-14.2); RDW Standard Deviation 55.5 fL (35.1-46.3); Red Blood Cell Count 4.32 M/mm3 (4.30-5.90); White Blood Cell Count 7.49 K/mm3 (4.00-11.30)
[2019-04-02 03:46] LABS: Anion Gap 1 mmol/L (6-16); Blood Urea Nitrogen 27 mg/dL (8-24); Bun/Creatinine Ratio 52.7 (12.0-20.0); CO2, Blood 35 mmol/L (21-32); Calcium, Blood 8.6 mg/dL (8.5-10.1); Chloride, Blood 107 mmol/L (98-108); Creatinine, Blood 0.51 mg/dL (0.60-1.20); Glomerular Filtration Rate >60 (60-); Glucose, Blood 109 mg/dL (70-99); Magnesium, Blood 1.9 mg/dL (1.6-2.4); Phosphorus, Blood 2.3 mg/dL (2.5-4.9); Potassium, Blood 4.5 mmol/L (3.5-5.5); Sodium, Blood 143 mmol/L (136-145)
--- NOTE | 2019-04-02 06:25 | NUR ---
Shift Summary: Patient slept well throughout shift. Rouses easily to verbal stimuli, but remains drowsy when awake. Remains oriented x4 when awake. Remained on Airvo NC throughout shift, FiO2 70-93%, spO2-84-96%. Continues to deny dyspnea or SOB. C/o pain to back/hips effectively managed with x1 prn [place] early in shift. PEG tube remains patent and intact, site cleansed with saline and gauze changed this shift. Voiding using urinal in bed without difficulty. Sleeping at this time. Will continue to monitor until report to day shift RN.
--- NOTE | 2019-04-02 08:54 | NUR ---
CARE ASSUMED REPORT RECEIVED, CARE ASSUMED FROM MIRIAN RN AT 0700. ON ROUNDS, PT ASLEEP, BUT AROUSES EASILY FOR ASSESSMENT. REPORTING 9/10 PAIN, MEDICATED WITH NORCO. PT DECLINES REPOSITIONING. PT ALSO REQUESTING ANXIETY MEDICATION, WILL REASSESS ONCE PAIN MEDICATION HAS TAKEN EFFECT TO AVOID OVERSEDATION PT SLEEPY THIS MORNING. PT'S 02 DEMANDS INCREASING. MAXED ON HUMIDIFIED OXYMIZER AT THIS TIME, 02 SAT'S MID 80'S. PT DECLINES TO WEAR BIPAP. HR ELEVATED, 100'S-110'S. BP STABLE. PT AFEBRILE. CALL PLACED AND MESSAGE LEFT WITH PALLIATIVE CARE REGARDING PLAN OF CARE DISCUSSION WITH PATIENT.
--- NOTE | 2019-04-02 09:58 | NUR ---
DR. BARRY RE-EVALUATION DR. LAWRENCE REQUESTING THAT DR. BARRY SEE PATIENT TODAY TO REVIEW CASE FOR INFECTIOUS DISEASE. DR. BARRY ALREADY CONSULTED, CALL PLACED TO INPATIENT CONSULT LINE WITH MESSAGE.
--- NOTE | 2019-04-02 11:00 | NUR ---
PALLIATIVE CARE VISIT AND CASE CONFERENCE: Received call from bedside RN with request to revisit and review goals of care with pt. She reports that O2 needs increasing and biox readings falling. Visit made to pt known to me from early on in his acute care stay. Pt remembers me. He is lying supine in ICU#7 bed, airvo/nc high flow O2 in place. Pt has abrasion over bridge of nose, presumably from bipap mask. He is alert and oriented. We reviewed his stay, progress/lack of progress, increasing respiratory support needs, change in code status. Pt seems well aware that he is declining and that his prognosis is poor. We discussed his s/s and comfort. He reports no pain currently and improved anxiety after he was just medicated for a high level of anxiety per eMAR, by RN, just prior to my visit. Pt's Faiza CHANDRA at bedside and in room during our visit. I spoke to pt about comfort care, what would change in his care if he opted for comfort care, limitations in treating his s/s if he is not on comfort care. Pt verbalized understanding and denied questions currently. Foot rub given to pt for relaxation and comfort & therapeutic conversation/distraction employed. LE/pedal edema noted bilaterally. Extremities are warm with socks on. RN offered to read pt's daily devotional at bedside and Timothy de la pazdly accepted. lottery office manager called to revisit for comfort. Case conferenced with RN and Dr Salmeron after my visit. Pt instructed to have me paged if he would like me to return today and that I will visit in am if not before. Pt appears to be actively dying from respiratory failure. He confirmed that he did not want to have CPR or intubation in discussing his recent change in code status.
--- NOTE | 2019-04-02 11:23 | NUR ---
PALLIATIVE CARE/DR. LAWRENCE PT'S OXYGEN SATURATION CONSISTENTLY DROPPING, HR CLIMBING. SEE FLOWSHEET. PT REPEATEDLY REFUSES BIPAP REGARDLESS OF EDUCATION. REFUSES REPOSITIONING. PT WILL MOVE SELF AROUND ACTING UNCOMFORTABLE IN BED, AND WHEN ASKED IF WE CAN REPOSITION HIM INITALLY SAYS YES. WHEN ATTEMPTING TO INITIATE, PT BECOMES ANXIOUS AND SAYS, "NO I'M FINE. LEAVE ME JUST LIKE THIS." EDEN IN PALLIATIVE CARE TO BEDSIDE TO SPEAK WITH PATIENT REGARDING COMFORT CARE. PT ANXIOUS. SEE PALLIATIVE CARE NOTE. DR. LAWRENCE TO BEDSIDE FOR ASSESSMENT. AFTER SPEAKING WITH DR. LAWRENCE, PT AGREES TO WEAR BIPAP. BIPAP PLACED BY RT DARWIN. PT AGREES HE WOULD LIKE HIS SISTER AT BEDSIDE. CALL PLACED AND SHE IS ON HER WAY. SPOKE WITH DR. LAWRENCE, NEW ORDER FOR ATIVAN TO HELP WITH PATIENTS ANXIETY.
--- NOTE | 2019-04-02 12:14 | NUR ---
UPDATE SINCE PREVIOUS NOTE, PT TOLERATING BIPAP WITH 02 SAT MID 80'S. RR 40'S. HR 110'S-120'S. PT'S SISTER TO BEDSIDE. OFFERED PALLIATIVE CARE VISIT, SISTER DECLINES.
--- NOTE | 2019-04-02 13:29 | NUR ---
UPDATE PT'S O2 SAT'S INCREASED TO LOW 90'S ON BIPAP. PT RESTING QUITELY, MAKING NEEDS KNOWN. ALLOWING FOR REPOSITIONING/CARES AT THIS TIME. SISTER CONTINUES TO BE AT BEDSIDE.
--- NOTE | 2019-04-02 13:31 | NUR ---
INFECTIOUS DISEASE CONSULT DR. BARRY TO BEDSIDE TO RE-EVALUATE PLAN OF CARE FROM INFECTIOUS DISEASE STANDPOINT PER DR. LAWRENCE REQUEST. CONTINUE WITH CURRENT PLAN OF CARE AND ALSO CHECK VARIOUS LABS - SEE ORDERS PER DR. BARRY.
--- NOTE | 2019-04-02 14:19 | NUR ---
RESPIRATORY STATUS BIPAP SETTINGS INITIALLY 12/7 FIO2 100%. RT DARWIN TITRATED BIPAP SETTINGS FROM 100% TO 90% PT'S OXYGEN SATURATION MID 90'S. PT TOLERATED FOR APPROX 30 MINUTES ON 90% FIO2. INCREASED FIO2 TO 100% FOR 02 SAT MID-LOW 80'S. PT MAINTAINING AT 85-86% AT THIS TIME. RR CONTIUE TO BE 30'S-40'S. HR 120'S. BP STABLE.
--- NOTE | 2019-04-02 18:14 | NUR ---
SUMMARY SINCE PREVIOUS NOTE, PT'S SPO2 GRADUALLY IMPROVED BACK TO LOW 90'S. PT MAINTAINING WHEN NOT MOVING AROUND. GAVE PT BED BATH AND PT WAS IN HIGH 70'S AND LOW 80'S FOR OVER AN HOUR WITH BIPAP 12/7 FIO2 100%. HR CONTINUES IN 120'S. BP STABLE. LOW GRADE FEVER PRESENT. CONDOM CATH PLACED BACK ON PATIENT HE WAS NOTED TO HAVE WET BRIEF REGARDLESS OF USING THE URINAL WHEN CHANGED AND PT IS VERY HIGH RISK FOR SKIN BREAK DOWN ON BACK AND PT NOT LETTING STAFF KNOW WHEN HE IS WET AND IS REFUSING TURNS/CARES MORE OFTEN THAN NOT. PENIS REDNESS/SLOUGHING IMPROVING. NO BOWEL MOVEMENT TODAY. PT MEDICATED FOR PAIN AND ANXIETY THROUGHOUT AFTERNOON - SEE EMAR. PT'S FAMILY HAS BEEN IN AND OUT OF ROOM.
--- NOTE | 2019-04-02 19:30 | NUR ---
REPORT TO CORAZON ANDINO TO ASSUME CARE
--- NOTE | 2019-04-02 22:21 | NUR ---
ASSUMED CARE OF PT, REPORT RCV'D FROM CORAZON GRANT. PT ALERT TO VERBAL STIMULI, PT FOLLOWS COMMANDS AND ASSISTS WITH REPOSITIONING. PT ON BIPAP / FIO2 100% WITH SATS AT 85% CURRENTLY. CONDOM CATH IN PLACE DRAINING CLOUDY YELLOW URINE, URINE SENT TO LAB. PT'S SISTER AND NEPHEW AT BEDSIDE. PT DENIES NEEDS AT THIS TIME. SEE FULL SHIFT ASSESSMENT
--- NOTE | 2019-04-03 06:35 | NUR ---
SHIFT SUMMARY NO ACUTE CHANGES OVERNIGHT. PT REMAINS ON SAME BIPAP SETTING 01/20 FIO2 100%. SATS WERE IN UPPER 70'S TO LOW 80'S AT SHIFT START-PT'S SATS CURRENTLY IN MID 90'S FOLLOWING REGULAR PAIN AND ANXIOLYTIC MEDICATIONS. PT WAS ABLE TO REST WELL OVERNIGHT. PT'S NEPHEW STAYED OVERNIGHT. CONDOM CATH REMAINS IN PLACE WITH 400 ML DARK YELLOW URINARY OUTPUT. WILL REPORT TO DAYSHIFT NURSE
--- NOTE | 2019-04-03 13:17 | NUR ---
REASSESSMENT: PT HAS BEEN RESTING IN BED THROUGHOUT THE MORNING. HE IS AWAKE AND REPLIES WHEN SPOKEN TOO BUT IS NOT ANIMATED HE WAS THIS WEEKEND. OVERALL AFFECT IS QUITE FLAT AND WITHDRAWN TODAY. LUNGS REMAIN WHEEZY. PT SWITCHED TO AIRVO EARLIER AT PT'S REQUEST AND HE IS TOLERATING IT WELL. HR REMAINS ST IN THE LOW 100S, BP STABLE. SPOKE WITH PT'S SISTER AND GAVE HER UPDATE ON PT'S STATUS AND SHE CAME IN TO VISIT WELL. NO OTHER REQUESTS AT THIS TIME. CONTINUING TO MONITOR.
--- NOTE | 2019-04-03 16:08 | NUR ---
REASSESSMENT: PT HAS BEEN MORE AGITATED THIS AFTERNOON, REPEATEDLY PULLING AT THE TAB ALARM AND PULLING ON HIS VEST RESTRAINT TO STAND UP. HE GOT THE VEST OFF OVER HIS HEAD SO SMALLER VEST PUT ON HIM. PT IS GETTING AGITATED THINING HIS DAD IS OUTSIDE WAITING FOR HIM DEPSITE MULTIPLE REASSURANCES THAT HE ISN'T. CARE MANAGMENT TALKED TO HIM ABOUT REHAB AND HE AGREED TO GO BUT THEN CM SAID NOFACILITIES ACCEPTED HIM AND PT IS STILL HYPER FOCUSED ON GOING TO REHAB. PT WAS A LITTLE CALMER AFTER TALKING WITH HIS MOTHER, BUT HE IS STILL AGITATED AND REQUIRING FREQUENT REORIENTATION. LUNGS REMAIN CL, RA, BP STABLE, VOIDING - SOMETIMES CONTINENT. NO OTHER REQUESTS FROM THIS PT, CONTINUING TO MONITOR.
--- NOTE | 2019-04-03 16:27 | NUR ---
SHIFT SUMMARY PT HAS BEEN RESTING IN BED THROUGHOUT THE DAY. HE HAS CONTINUED TO HAVE A FLAT AFFECT BUT HAS BEEN A LITTLE MORE INTERACTIVE THIS AFTERNOON. LUNGS REMAIN WHEEZY, ON THE AIRVO. ST IN THE LOW 100S, BP STABLE. TOLERATING TF, VOIDING INTO CONDOM CATH. PT'S SISTER VISITED TODAY AND WAS FULLY UPDATED. NO OTHER REQUESTS FROM PT. CONTINUING TO MONITOR.
--- NOTE | 2019-04-03 20:00 | NUR ---
ASSUMED CARE NOTE: ASSUMED CARE OF PT AT 1900, RECEVIED REPORT FROM CORAZON DUPONT. PT IS ALERT AND ORIENTEDX3. PT IS SLOW TO RESPOND. AIRVO SETTINGS @ 60L WITH FiO2 @ 84%, SP02 ABOVE 90%. PT IS WHEEZE T/O, PRODUCING THICK YELLOW SPUTUM. PT IS C/O PAIN AND ANXIETY AT THIS TIME. WILL MEDICATE PER EMAR. TUBE FEED RUNNING @ GOAL 80ML/HR. REDNESS NOTED AT PEG TUBE SITE, NO DRAINAGE NOTED. PT IN SINUS TACH WITH HR @ 102. CATH MANN IN PLACE, DRAINING YELLOW URINE. WILL CONTINUE TO MONITOR PT. BED AT LOWEST LEVEL, CALL LIGHT WITHIN REACH
--- NOTE | 2019-04-03 22:08 | NUR ---
TUBE FEED COMPLETE. PEG TUBE FLUSHED WITH 60MLS WATER AND CLAMPED.
--- NOTE | 2019-04-04 03:22 | NUR ---
UPDATE: PT'S HR INCREASED TO 154 BPM WHILE AT REST. IT SLOWLY COMES BACK DOWN INTO THE 70'S, THEN AFTER A FEW MIN HR CLIMBS BACK UP INTO THE 140'S. LOW BP NOTED. PT IS DROWSY, HOWEVER IS EASILY AROUSABLE. PT IS ABLE TO ANSWER QUESTIONS. PT DENIES CP OR SOB AT THIS TIME.
[2019-04-04 04:20] LABS: Hematocrit 45.3 % (37.0-53.0); Hemoglobin 13.3 g/dL (13.5-17.5); Mean Corpuscular HGB 31.7 pg (26.0-34.0); Mean Corpuscular HGB Conc 29.4 g/dL (31.5-36.5); Mean Platelet Volume 11.4 fL (9.1-12.4); Platelet Count 108 K/mm3 (150-400); RDW Coefficient Variation 14.6 % (11.7-14.2); RDW Standard Deviation 58.1 fL (35.1-46.3); White Blood Cell Count 4.45 K/mm3 (4.00-11.30)
[2019-04-04 04:25] LABS: Mean Corpuscular Volume 108 fL (80-100)
[2019-04-04 04:38] LABS: Anion Gap -1 mmol/L (6-16); Blood Urea Nitrogen 30 mg/dL (8-24); Bun/Creatinine Ratio 59.1 (12.0-20.0); CO2, Blood 38 mmol/L (21-32); Calcium, Blood 9.4 mg/dL (8.5-10.1); Chloride, Blood 109 mmol/L (98-108); Creatinine, Blood 0.51 mg/dL (0.60-1.20); Glomerular Filtration Rate >60 (60-); Glucose, Blood 88 mg/dL (70-99); Magnesium, Blood 2.1 mg/dL (1.6-2.4); Phosphorus, Blood 2.6 mg/dL (2.5-4.9); Potassium, Blood 4.6 mmol/L (3.5-5.5); Sodium, Blood 146 mmol/L (136-145)
[2019-04-04 04:44] LABS: BAND PERCENT MAN 18 % (0-8); BASOPHILS PERCENT MAN 0 % (0-2); EOSINOPHILS ABSOLUTE MAN 0.04 K/mm3 (0.00-0.68); EOSINOPHILS PERCENT MAN 1 % (0-6); LYMPHOCYTES ABSOLUTE MAN 0.62 K/mm3 (0.84-5.20); LYMPHOCYTES PERCENT MAN 14 % (21-46); METAMYELOCYTE ABSOLUTE MAN 0.04 K/mm3 (0.00-0.00); METAMYELOCYTE PERCENT MAN 1 % (0-0); MONOCYTES ABSOLUTE MAN 0.26 K/mm3 (0.16-1.47); MONOCYTES PERCENT MAN 6 % (4-13); NEUTROPHILS ABSOLUTE MAN 3.47 K/mm3 (1.96-9.15); SEG NEUTROPHILS PERCENT MAN 60 % (41-73); TOTAL CELLS COUNTED 100
--- NOTE | 2019-04-04 05:10 | NUR ---
UPDATE: CALLED REGARDING LOW BLOOD PRESSURE. ORDERS GIVEN TO GIVE 500ML BOLUS OF NS. PT IS DROWSY, AND ORIENTED, ABLE TO ANSWER QUESTIONS. PT STATES HE IS IN PAIN, HOWEVER, HE WAS EDUCATED NARCOTIC BP EFFECTS. COMFORT CARE MEASURES SHOULD BE DISCUSSED FURTHER THIS AM SHIFT, TO EFFECTIVELY MANAGE PAIN.
--- NOTE | 2019-04-04 05:57 | NUR ---
UPDATE: PT BACK ON BIPAP WITH SETTINGS @ 01/20, FIO2 75%.
--- NOTE | 2019-04-04 06:17 | NUR ---
SHIFT SUMMARY: SEE PREVIOUS NOTES. PT REMAINS DROWSY, HOWEVER IS ORIENTED AND ABLE TO ANSWER QUESTIONS. PT IS ON BIPAP WITH SETTINGS 12/7, FiO2 75%, SPO2 ABOVE 90%. PT HAS LARGE AMOUNTS OF YELLOW THICK SPUTUM. PT HAS BEEN IN SINUS ARRYTHMIA WITH PVC'S. .PT DENIES CP. HR HAS BEEN BETWEEN 80-150BPM, WITH OR WITHOUT ACTIVITY. PT TUBE FEEDING WERE RESTARTED @ 0600, LAST RESIDUAL WAS 50MLS. PT HAS BEEN C/O PAIN, HOWEVER DUE TO LOW BP, NO PAIN MEDS WERE GIVEN AFTER MIDNIGHT DOSE. .500ML NS BOLUS GIVEN PER ORDERS. WILL CONTINUE TO MONITOR PT UNTIL REPORT IS GIVEN TO ONCOMING SHIFT.
--- NOTE | 2019-04-04 08:00 | NUR ---
PT ASSESMENT PT ALERT AND ORIENT AND WILL FOLLOW ALL COMMANDS AND INTERACT. C/O GENERALIZED AND MALAVE PAIN WITH PRNS GIVEN. VSS, ST AND HYPOTENSIVE AT TIMES BUT MAP GREATER THAN 60 AND MD AWARE HYPOTENSION. PALP PULSES T/O AND AFEBRILE WITH NO EDEMA. TOLERATING BIPAP AT 75% AND SATS IN THE LOW TO MID 90S WITH DIMINISHED LUNG SOUNDS BILAT AND WEAK NON PRODUCTIVE COUGH. PEG IN PLACE WITH BOLUS TF AND H20 FLUSH PER MOTOR BRAKEMAN ORDERS. ABD FLAT HYPOTONIC BT AND NO BM. CONDOM CATH IN PLACE AND DRAINING CLEAR YELLOW URINE. SKIN PER SPREADSHEET ASSESMENT. WILL CONT TO MONITOR
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
--- NOTE | 2019-04-04 18:47 | NUR ---
PT UPDATE PT TACHY IN THE 130S, PRN ATIVAN GIVEN, TEMP 102.0 WASH CLOTHE APPLIED AND PT UNCOVERED WITH FAN APPLIED AND PRN TYLENOL GIVEN. ADVISED. WILL CONT TO MONITOR
--- NOTE | 2019-04-04 18:56 | NUR ---
Routine spiritual care note: Pt is non-lucid for me today. I sat with him several times throughout shift. Breaths shallow. He was restless at times, fidgeting with mask. This afternoon, I met with Timothy's sister. We had an easy rapport. She was appreciaitve of prayer and spiritual support. She appears to understand Timothy is nearing end-of-life and her only wish is that he does not suffer. Affirmed obvious love and offered gentle certified substance abuse counselor to good effect. I will remain available to pt and family.
--- NOTE | 2019-04-04 21:00 | NUR ---
[place] of Care: Care assumed at 1900hr. Patient nearly completely unresponsive. Attempts to open eyes to verbal stimuli, but not tracking staff or following any commands. Occasionally moves upper extremities spontaneously, but not purposeful movements. Patient on BiPAP at 12/7, 100% FiO2 at shift change, FiO2 decreased to 90%, spO2-94-96%. Respiratory rate 30-40. Patient's HR shows sinus rhythm with frequent PAC's and PVC's, occasional 3-4 beat runs of V-tach, rate between 120-140's. Systolic BP 90's- low 100, MAP's 60's. Patient's temperture 101.6 at shift change, prn tylenol given late day shift. This nurse then applied ice packs to bilateral axilla and back of neck. Call then placed to Dr. Salmeron at approx 2000hr r/t patient's condition and plan of care. Informed Dr. Salmeron of patient's VS, HR/rhythm, and LOC. Dr. Salmeron verbalized understanding of patient's condition, and that he had assessed the same condition on day shift. Received order for x1L bolus of LR, and to call at anytime if further questions arise. Also informed Dr. Salmeron of consistency of secretions from NT suctioning on day shift, concern that it may contain tube feeding. Received instructions to hold 0600hr tube feeding until further instructions from Dr. Salmeron. New IV placed to rt upper arm and LR bolus started. Will continue to monitor.
[2019-04-05 03:56] LABS: Hemoglobin 13.1 g/dL (13.5-17.5); Mean Corpuscular HGB 31.1 pg (26.0-34.0); Mean Corpuscular HGB Conc 27.9 g/dL (31.5-36.5); Mean Platelet Volume 11.7 fL (9.1-12.4); Platelet Count 108 K/mm3 (150-400); RDW Coefficient Variation 14.5 % (11.7-14.2); RDW Standard Deviation 60.4 fL (35.1-46.3); Red Blood Cell Count 4.21 M/mm3 (4.30-5.90)
[2019-04-05 03:58] LABS: Mean Corpuscular Volume 112 fL (80-100)
[2019-04-05 04:11] LABS: Anion Gap 0 mmol/L (6-16); Blood Urea Nitrogen 38 mg/dL (8-24); Bun/Creatinine Ratio 49.1 (12.0-20.0); CO2, Blood 39 mmol/L (21-32); Calcium, Blood 9.3 mg/dL (8.5-10.1); Chloride, Blood 106 mmol/L (98-108); Creatinine, Blood 0.77 mg/dL (0.60-1.20); Glomerular Filtration Rate >60 (60-); Glucose, Blood 228 mg/dL (70-99); Magnesium, Blood 2.1 mg/dL (1.6-2.4); Phosphorus, Blood 3.9 mg/dL (2.5-4.9); Potassium, Blood 4.7 mmol/L (3.5-5.5); Sodium, Blood 145 mmol/L (136-145)
[2019-04-05 04:12] LABS: BAND PERCENT MAN 38 % (0-8); BASOPHILS PERCENT MAN 0 % (0-2); EOSINOPHILS PERCENT MAN 0 % (0-6); LYMPHOCYTES ABSOLUTE MAN 0.62 K/mm3 (0.84-5.20); LYMPHOCYTES PERCENT MAN 8 % (21-46); METAMYELOCYTE ABSOLUTE MAN 0.07 K/mm3 (0.00-0.00); METAMYELOCYTE PERCENT MAN 1 % (0-0); MONOCYTES ABSOLUTE MAN 0.54 K/mm3 (0.16-1.47); MONOCYTES PERCENT MAN 7 % (4-13); MYELOCYTE ABSOLUTE MAN 0.07 K/mm3 (0.00-0.00); MYELOCYTE PERCENT MAN 1 % (0-0); NEUTROPHILS ABSOLUTE MAN 6.47 K/mm3 (1.96-9.15); SEG NEUTROPHILS PERCENT MAN 45 % (41-73); TOTAL CELLS COUNTED 100
--- NOTE | 2019-04-05 06:25 | NUR ---
Shift Summary: No change in neuro status throughout shift, patient continues to be minimally responsive. Occasionally opens eyes to verbal stimuli, but not following any commands or verbal response. Some moaning with repositioning and gross movement of all extremities. Continues on BiPAP 01/20, FiO2 decreased to 75%, spO2-92-97%. Occasional weak, congested, non-productive cough. X1L LR bolus given early in shift, HR then decreased from 120's-140's to 90's- low 100's. BP remained labile, systolic 80's-90's, then decreased and maintained in the 70's late this shift. Call placed to Dr. Salmeron and received order for x1L NS bolus followed by NS at 100ml/hr. X1 prn Ativan given for increased respiratory rate and restlessness with good effect noted. Condom cath remains patent and intact, draining dark yellow urine, 850ml output. Will continue to monitor until report to day shift RN.
--- NOTE | 2019-04-05 08:57 | NUR ---
0700-ASSUMED CARE OF PT. PT IS ONLY RESPONSIVE TO PAIN STIMULI. PT IS NOT FOLLOWING COMMANDS. PT IS RECEIVING HIS 2ND FLUID BOLUS. PT IS CURRENTLY ON AFIB WITH RVR. HR 140s-160s. ON BIPAP - 01/20, BUR 10 FIO2 75%. TUBE FEEDING IS HELD AT THIS TIME. PT HAS BEEN HYPOTENSIVE. TEMP 101.3 0830-DR. LAWRENCE AT BEDSIDE. UPDATED HIM OF PATIENT'S STATUS. HE ORDERED TO GIVE ANOTHER 1 LITER BOLUS OF NS DUE TO PERSISTENT HYPOTENSION.
--- NOTE | 2019-04-05 10:35 | NUR ---
CALLED PT'S SISTER PORTILLO BACK, UPDATED HER OF PT'S CONDITION
--- NOTE | 2019-04-05 14:00 | NUR ---
PT'S SBP 70s-80s. IN AND OUT OF AFIB. DR. LAWRENCE IS AWARE OF PT'S LOW BP. NO ORDERS RECEIVED.
--- NOTE | 2019-04-05 15:14 | NUR ---
SUZI, PT'S NIECE AT BEDSIDE, UPDATED HIM OF PT'S STATUS.
--- NOTE | 2019-04-05 16:47 | NUR ---
Clinical Visit: Pt is not responsive. He is wearing bipap, fluids and antibiotics are running. Pt's sister, Rina, is at bedside along with the pt's Colleen godinez. Rina is tearful and states that he "looks like he is dying." Confirmed that physician reports that this pt is now in his actively dying phase. Reviewed comfort care with her. Her main concern is the bipap. Rina states that "he is so scared and anxious when they take that mask off. I don't want him feeling that way, so I want it left in place." Counseled Rina on changes related to end of life care and symptom of air hunger. Instructed that anxiety and air hunger can be controled with medication. Rina states that she will make him comfort care as long as the bipap stays on. She is okay with comfort care plan, stopping tube feedings, and stopping fluids and antibiotics, but due to the pt's reaction when taken off the bipap, she would like him to keep it on during his dying process. She does not have any other questions at this time. She feels comfortable letting the nurses know when she notices any pain indications. She is enjoying her time with the pt. Spoke with Dr. Hardy. He is agreeable to Rina's comfort plan. Orders are placed.
--- NOTE | 2019-04-05 17:21 | NUR ---
SHIFT SUMMARY: PT IS NOW COMFORT CARE. PT'S SISTER PORTILLO REQUESTED TO KEEP THE BIPAP SO PT CAN HAVE O2. EXPLAINED TO FAMILY WELL THAT PT WILL BE GIVEN MEDICATIONS TO BE ABLE TO BE COMFORTABLE, EXPLAINED TO THEM WELL THAT PT WILL NOT BE MONITORED AND THAT PT WILL BE TRANSFERED TO MEDICAL FLOOR. EXPLAINED TO FAMILY THE WHAT WILL TAKE PLACE AND WHAT TO EXPECT WHEN PT IS ON COMFORT CARE. PT IS UNRESPONSIVE. PT WAS MEDICATED WITH 2 DOSES OF NORCO AND A DOSE OF ATIVAN FOR THE WHOLE SHIFT.
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
--- NOTE | 2019-04-05 19:11 | NUR ---
HAD EXTENSIVE CONVERSATION WITH PT'S SISTER REGARDING COMFORT CARE AND PT'S USE OF OXYGEN AND BIPAP. PT WAS ON V60 AND NOW ON COMFORT. WE DISCUSSED SWITCHING HIM TO AN M SERIES SO SHOULD WE NEED TO MOVE TO MEDICAL FLOOR WE COULD BUT THAT HE WOULD TRANSPORT ON A NON REBREATHER ON 15L AND THAT ULTIMATELY THAT WOULD BE MORE COMFORTABLE FOR HER BROTHER, WE DISCUSSED THIS AND PT'S SISTER DECIDED THAT SHE WOULD LIKE HIM TO BE ON NRB WITH MSERIES ON STANDBY WITH ALY MASK IN CASE THEY SHOUD DECIDE TO GO BACK ON BIPAP BUT PLAN FOR NOW WILL BE TO STAY ON NRB FOR COMFORT PER PT'S SISTERS WISHES.
--- NOTE | 2019-04-05 22:35 | NUR ---
[place] of Care: Care assumed at 1900hr. Patient placed on comfort measures on day shift. Patient unresponsive, but appeared calm/comfortable at shift change. Approx 2100hr, patient appeared to be in pain (some moaning and facial grimace), patient also showed some movement of arms. Prn Ativan and fentanyl given with good effect noted. X2 family members at bedside. Family offered comfort cart but declined. Will continue to monitor.
[2019-04-08 15:08] LABS: LOG10 CMV QN DNA PL 3.146 (.)
== END 2019-04-06 02:38 | DRG 974 ==
LOC: ER 08:33 → MEDS 11:15 → PCU 11:15 → MEDS 03-12 14:02 → PCU 03-22 19:50 → ICUE 03-23 04:46 → PCU 04-03 14:34 → ICUE 04-03 14:42
PROVIDERS: Internal Medicine; Internal Medicine Critical Care Medicine; Internal Medicine Gastroenterology; Internal Medicine Infectious Disease; Internal Medicine Pulmonary Disease; Nurse Practitioner Acute Care; Pharmacist; Physician Assistant; ADMIT Family Medicine
PROC: 5A09557 Assistance with Respiratory Ventilation, Greater than 96 Consecutive Hours, Continuous Positive Airway Pressure (ICD-10-PCS; 2019-03-08)
PROC: 0DH63UZ Insertion of Feeding Device into Stomach, Percutaneous Approach (ICD-10-PCS; principal; 2019-03-14 13:30)
PROC: 0DB98ZX Excision of Duodenum, Via Natural or Artificial Opening Endoscopic, Diagnostic (ICD-10-PCS; 2019-03-14 13:30)
DX: A41.9 Sepsis, unspecified organism (principal); R65.21 Severe sepsis with septic shock; B20 Human immunodeficiency virus [HIV] disease; J96.22 Acute and chronic respiratory failure with hypercapnia; J96.21 Acute and chronic respiratory failure with hypoxia; G93.41 Metabolic encephalopathy; E43 Unspecified severe protein-calorie malnutrition; J69.0 Pneumonitis due to inhalation of food and vomit; J14 Pneumonia due to Hemophilus influenzae; J15.212 Pneumonia due to Methicillin resistant Staphylococcus aureus; Z51.5 Encounter for palliative care; Z66 Do not resuscitate; I35.0 Nonrheumatic aortic (valve) stenosis; T17.908A Unspecified foreign body in respiratory tract, part unspecified causing other injury, initial encounter; D69.6 Thrombocytopenia, unspecified; Z99.81 Dependence on supplemental oxygen; M54.9 Dorsalgia, unspecified; E83.39 Other disorders of phosphorus metabolism; J43.9 Emphysema, unspecified; K22.0 Achalasia of cardia; K59.00 Constipation, unspecified
CPT/HCPCS: 0099U; 31720; 36415; 36600; 71045; 71046; 71250; 71260; 74018; 74150; 74176; 74230; 80048; 80053; 80069; 80202; 81001; 82803; 82947; 83516; 83605; 83615; 83735; 83880; 84100; 84132; 84145; 84484; 85025; 85027; 85610; 85730; 86361; 86403; 86644; 86645; 87040; 87070; 87077; 87086; 87102; 87147; 87185; 87186; 87205; 87449; 87497; 87536; 87804; 88108; 88305; 88312; 90686; 92526; 92610; 92611; 93005; 93010; 93306; 94640; 94660; 94667; 94760; 94762; 96365; 96375; 97110; 97163; 97165; 97530; 97535; 99285-25; A9270; A9270-GY; C1769; C9113; G0008; J0610; J0696; J0713; J1170; J1650; J1815; J1885; J1940; J1956; J2060; J2250; J2405; J2543; J2704; J2920; J2930; J3010; J3370; J7030; J7040; J7050; J7060; J7120; J7512; Q9967